=== PATIENT | male | born 1955 | race Caucasian/White ===

== ENCOUNTER → 2018-02-18 11:02 | Outpatient (CLI) | payer BC, SELFPAY ==
--- NOTE | 2018-02-18 11:09 | XR_ITS ---
EXAM: XR cervical spine 5V HISTORY: ITS.REASON: LT NECK PAIN RADIATING DOWN LT ARM ORDERING PHYSICIAN: Eddi Gomez PATIENT AGE: 62 years COMPARISON: 08/13/2009 FINDINGS: There is normal alignment. There are slight reversal of cervical lordosis with minimal anterolisthesis of C3 on C4 of 2 mm. There is partial fusion of C4 and C5 vertebral body. Degenerative disc disease is present at C5 C6 and C6-C7. Moderate facet hypertrophic changes are present at C3-C4 with moderate right-sided foraminal narrowing. Foraminal narrowing also noted on the right at C5-6 is 7 and on the left at C3-C4 and C5-C6.. The facet arthritic changes has progressed at C3-C4. No bony destructive process. No evidence of cervical rib. No fracture or dislocation. IMPRESSION: Multilevel cervical spondylosis as described above with foraminal narrowing on the right at C3-C4 C5-C6 and C6-C7 and on the left at C3-C4 and C5-C6. Partial fusion of C4-C5
== END ==
PROVIDERS: PCP Internal Medicine; Visit Provider Internal Medicine
DX: M54.2 Cervicalgia (principal); M54.12 Radiculopathy, cervical region
CPT/HCPCS: 72050

== ENCOUNTER 2019-01-03 07:49 | Outpatient (RCR) | payer BC, SELFPAY ==
--- NOTE | 2019-01-03 08:42 | HMH.PTOPEV ---
PT Outpatient Evaluation Rehab PT Outpatient Evaluation Start: 01/03/19 08:21 Freq: Status: Active Protocol: Document 01/03/19 08:21 LORI (Rec: 01/03/19 08:32 LORI [id number]) Electronically Signed By Tanner Toure, PT 01/03/19 08:21 Outpatient Therapy Subjective History Subjective History Pt reports h/o chronic LBP with exacerbation over the last ~8 months. Pt reports L>R hip/glut area pain following a 'bending' injury. Pt reports L sided neck pain loacalized, and R UE N&T from SH to hand . Pt reports insidious onset neck and R UE beginning ~2 months ago. Chief Complaint Pain Stiff Paresthesia Weakness Symptom Type Ache Sharp Dull Numbness Tingling Symptoms Relieved By Rest/Positioning Symptoms Aggravated By Bending/Stooping Physical Activity Twisting Lifting Prior Functional Limitations Reaching Lifting Housework Bending/Stooping Current Functional Limitations Reaching Lifting Housework Bending/Stooping Symptom Description Constant but Variable Level of pain today (0-10) 5 Pain scale - at its best (0-10) 2 Pain scale - at its worst (0-10) 7 Cervical Eval Palpation Cervical Muscles L Cervical Paraspinal L Suboccipital R CT Junction L CT Junction R Upper Trapezius L Upper Trapezius Posture Head/C-Spine Posture Sitting Position Side Bent Right Head/C-Spine Posture Standing Position Side Bent Right Flexibility Deficits Upper Trapezius Muscle Length (R) Moderate Tightness (L) Moderate Tightness Scalene Group Muscle Length (R) Mild Tightness (L) Moderate Tightness Passive Joint Mobility Cervical PIVM Dec: R OA L OA R AA L AA
== END 2019-01-03 07:55 | disposition home or self-care (01) ==
LOC: PT 07:49
PROVIDERS: Visit Provider Internal Medicine
DX: M54.2 Cervicalgia (principal); M79.601 Pain in right arm; M54.42 Lumbago with sciatica, left side
CPT/HCPCS: 97163

== ENCOUNTER → 2019-04-02 10:09 | Outpatient (CLI) | payer BC, SELFPAY ==
--- NOTE | 2019-04-02 10:15 | XR_ITS ---
XR KUB HISTORY: ITS.REASON: LT KIDNEY STONE ORDERING PHYSICIAN: Eddi Gomez PATIENT AGE: 63 years COMPARISON: None FINDINGS: The bowel gas pattern is unremarkable. No obvious obstruction.. There are 2 tiny calcific densities in the left aspect of the lower pelvis are the one of which could represent a tiny ureteral stone. IMPRESSION: Possible left distal ureteral stone otherwise negative
== END ==
PROVIDERS: PCP Internal Medicine; Visit Provider Internal Medicine
DX: N20.0 Calculus of kidney (principal)
CPT/HCPCS: 74018

== ENCOUNTER 2020-10-14 15:02 | Emergency (ER) | payer BC, MEDICARE, OTHER, SELFPAY ==
--- NOTE | 2020-10-14 14:50 | ECG_ITS ---
APPROVED REPORT Exam: Resting ECG HR:214 bpm ECG Measurements Heart Rate 214 AXES QRSd 78 QRS 247 QT 226 T 35 QTc 426 Conclusion Supraventricular tachycardia Right superior axis deviation Pulmonary disease pattern Nonspecific ST abnormality Abnormal ECG Electronically signed by : Xander Xie, 10/15/2020 07:09:19
[2020-10-14 15:02] VITALS: BP 118/86; PULSE 218; RESP 20; O2SAT 97; BMI 24.4
--- NOTE | 2020-10-14 15:07 | HMH.EDARPALP ---
ED Disposition Clinical Impression: Supraventricular tachycardia Disposition: Home, Self-Care Condition on Discharge: Good Instructions: DI for Paroxysmal Supraventricular Tachycardia Additional Instructions: Follow-up with your director client services within the next 2 to 3 days for reevaluation. Return to the emergency department for any recurrence of symptoms, chest pain, shortness of breath. - Critical Care Critical Care Time: Yes Attestation: On , the high probability of a clinically significant, sudden or life threatening deterioration of the following system(s) required my full and direct attention, intervention and personal management. The time I documented below is in addition to time spent performing reported procedures but includes the following listed in this critical care notation. Vital system(s) involved:: Circulatory Failure, Respiratory Failure My critical care processes included: Assessment & monitoring of V/S, Initial and Re-exams, Data Review/Interpretation, Coordinating Care, Medication Orders and management, Documentation Medical Decision Making - Medical Records Medical records reviewed: Yes: I reviewed the patient's medical records. - Aayush Inquiry Pt receiving controlled substance: No Vital Signs: 10/14/20 15:02 Pulse Rate [Left Radial] 218 H Respiratory Rate 20 Blood Pressure [Right Arm] 118/86 Blood Pressure Mean [Right Arm] 96 Blood Pressure Source [Right Arm] Automatic Cuff Blood Pressure Position [Right Arm] Sitting 02 Sat by Pulse Oximetry 97 Oxygen Delivery Method Room Air Orders (Tests/Meds): ED MEDICATIONS Discontinued Medications Generic Name Dose Route Start Last Admin Trade Name Freq PRN Reason Stop Dose Admin Adenosine 6 mg 10/14/20 15:09 10/14/20 15:10 Adenosine 6mg/2ml Vial IV 10/14/20 15:10 6 mg ONCE ONE Administration Adenosine 12 mg 10/14/20 15:09 10/14/20 15:20 Adenosine 6mg/2ml Vial IV 10/14/20 15:10 12 mg ONCE ONE Administration - ECG Data Tracing #1 EKG at 1450 shows supraventricular tachycardia with a rate of 214. No STEMI. Normal QRS and QTc. EKG interpreted by me. Tracing #2 EKG at 1521 shows a normal sinus rhythm with a rate of 89. No acute ST segment elevation or depression. Normal WA, QRS and QTc. EKG interpreted by me. Medical Decision Narrative: Tried vagal maneuvers here with no relief of SVT. Attempted initially 6 mg of adenosine with no resolution. 12 mg of adenosine was attempted next with resolution of SVT. Patient feeling much better and is completely asymptomatic on reevaluation at approximately 1 hour post presentation and is discharged home to follow-up outpatient with cardiology for reevaluation within the next 2 to 3 days. Arrhythmia/Palpitations HPI - General Stated Complaint: svt Time Seen by Provider: 10/14/20 15:07 Mode of Arrival: Ambulatory Source of Information: Patient Limitations: No Limitations - History of Present Illness HPI narrative: This is a 65-year-old male with a past medical history significant for SVT who presents to the emergency department for tachycardia that started about 2 hours ago. Patient states that he just had cataract surgery yesterday and about 2 hours ago started having SVT type symptoms with sensation of tachycardia and chest tightness. This felt like a previous episode he had 2 years ago. He has not had any N/V/D. No other known exacerbating or alleviating factors. No SOA. He has resolved in the past with medication. He tried vagal maneuvers at home with no relief of symptoms. - Related Data Home Medications Medication Instructions Recorded Confirmed Metoprolol Tartrate [Lopressor 25 mg PO BID 12/12/19 12/29/19 25mg tablet] doxycycline hyclate 100 mg capsule 100 mg PO BID cap 12/29/19 12/29/19 Previous Rx's Medication Instructions Recorded Acetaminophen 1,000 mg PO TID PRN #60 tab 01/25/20 Hydrocod/Acet 5/325 mg [[place] 1 tab
--- NOTE | 2020-10-14 15:21 | ECG_ITS ---
APPROVED REPORT Exam: Resting ECG HR:89 bpm ECG Measurements Heart Rate 89 AXES WI 170 P 64 QRSd 84 QRS -52 QT 364 T 46 QTc 442 Conclusion Normal sinus rhythm Left axis deviation RSR' or QR pattern in V1 suggests right ventricular conduction delay Abnormal ECG Electronically signed by : Xander Xie, 10/15/2020 07:09:12
[2020-10-14 15:32] VITALS: BP 128/86; PULSE 87; RESP 18; O2SAT 96
[2020-10-14 16:08] VITALS: BP 133/84; PULSE 88; RESP 20; TEMP 36.8; O2SAT 96
== END 2020-10-14 16:10 | disposition home or self-care (01) ==
PROVIDERS: Emergency Provider Emergency Medicine; PCP Internal Medicine
DX: I47.1 Supraventricular tachycardia (principal); I48.0 Paroxysmal atrial fibrillation; I10 Essential (primary) hypertension; Z88.5 Allergy status to narcotic agent
CPT/HCPCS: 92960; 93005; 96374; 99282

== ENCOUNTER → 2020-10-27 09:27 | Outpatient (CLI) | payer BC, MEDICARE, OTHER, SELFPAY ==
--- NOTE | 2020-10-27 09:33 | XR_ITS ---
PROCEDURE: XR CHEST 2V CLINICAL HISTORY: RT POSTERIOR CHEST PAIN COMPARISON: No exams were available for comparison FINDINGS: The cardiomediastinal silhouette and pulmonary vascularity are within normal limits. The lungs are clear without infiltrates, suspicious nodules, or pleural effusions. There are calcified hilar nodes bilaterally are couple of calcified granulomata right lower lung field. There is no pleural fluid. There is a faint nodular opacity left lateral chest measuring 1.4 cm in diameter likely representing a developing or evolving calcified granuloma. However a noncalcified pulmonary nodule cannot be excluded based on this film and suggest a follow-up CT scan chest for better evaluation. No acute bony abnormalities. IMPRESSION: Evidence of old granulomatous disease, possible noncalcified pulmonary nodule left lateral chest and consider follow-up CT scan of the chest Dictated by: Dr. Zaheer Hayes MD 10/27/2020 09:48 Dr. Zaheer Hayes MD in [place] 10/27/2020 09:48
== END ==
PROVIDERS: PCP Internal Medicine; Visit Provider Internal Medicine
DX: R07.89 Other chest pain (principal)
CPT/HCPCS: 71046

== ENCOUNTER → 2020-11-05 07:37 | Outpatient (CLI) | payer BC, MEDICARE, OTHER, SELFPAY ==
--- NOTE | 2020-11-05 07:42 | CT_ITS ---
PROCEDURE: CT CHEST WO CON CLINICAL INDICATION: LT LUNG NODULE COMPARISON: CR [id number] XR cervical spine 5V from 02/18/[address] abdomen pelvis wo con from 03/20/2019 CR XR CHEST 2V from 10/27/2020 TECHNIQUE: Axial images obtained with sagittal and coronal reformats. All CT scans at the facility use one or more dose reduction, viz: automated exposure control, ma/kV adjustment per patient size (including targeted exams where dose is matched to indication, i.e. head), or iterative reconstruction technique. FINDINGS: HEART AND MEDIASTINAL STRUCTURES: Unremarkable. LUNGS AND PLEURAL SPACES: Mild centrilobular emphysema. There is a lobulated 13 x 12 mm nodule in the left upper lobe laterally. This is noncalcified and well-circumscribed. Calcified granulomas are present in the superior segment of the right lower lobe. 3 mm opacity is present in the right major fissure inferiorly. BONY STRUCTURES: No acute bony abnormalities apparent. UPPER ABDOMEN: Fatty liver. Cholelithiasis. Small nodes are present in the mesenteries with some faint increased density in the upper mesenteric fat. ADDITIONAL FINDINGS: No other significant abnormalities. IMPRESSION: 1. 13 x 12 mm noncalcified nodule within the left upper lobe. This nodule is indeterminate. This may have been present on an older CT scan of 03/20/2019 medical art therapist view but incompletely evaluated. Suggest PET-CT for further evaluation. 2. Centrilobular emphysema. 3. Fatty liver with cholelithiasis with nonspecific increased density in the upper mesenteric fat with a few small mesenteric lymph nodes Dictated by: Calvin Reyes MD 11/06/2020 06:30 Calvin Reyes MD in [place] 11/06/2020 06:30
--- NOTE | 2020-11-05 07:43 | US_ITS ---
PROCEDURE: US ABDOMEN COMPLETE CLINICAL INDICATION: RT FLANK PAIN COMPARISON: CT CT CHEST WO CON from 11/05/2020 FINDINGS: PANCREAS: Unremarkable. No obvious mass or abnormal fluid collection. No ductal dilatation LIVER: Diffuse increased echogenicity of the liver with poor through transmission of sound consistent with hepatic steatosis. No focal liver lesion demonstrated. There is appropriate direction of blood flow within non dilated portal vein. RIGHT KIDNEY: Unremarkable. Normal size and echogenicity. No hydronephrosis LEFT KIDNEY: Unremarkable. Normal size and echogenicity. No hydronephrosis GALLBLADDER: Cholelithiasis. No gallbladder wall thickening, pericholecystic fluid, or biliary dilatation is evident. AORTA: Incompletely evaluated due to overlying bowel gas SPLEEN: Unremarkable. Normal size and echogenicity ASCITES: None demonstrated. IMPRESSION: Fatty liver with cholelithiasis Dictated by: Calvin Reyes MD 11/06/2020 06:33 Calvin Reyes MD in [place] 11/06/2020 06:33
== END ==
PROVIDERS: PCP Internal Medicine; Visit Provider Internal Medicine
DX: R91.1 Solitary pulmonary nodule (principal); R10.9 Unspecified abdominal pain
CPT/HCPCS: 71250; 76700

== ENCOUNTER → 2021-01-12 10:03 | Outpatient (CLI) | payer BC, MEDICARE, OTHER, SELFPAY ==
[2021-01-12 11:06] LABS: Blood Urea Nitrogen 13 mg/dl (9-20); Estimated Glomerular Filt Rate 85 ml/min (>60); GFR (African American) 102 ML/MIN (>60)
== END ==
PROVIDERS: Visit Provider Internal Medicine Pulmonary Disease
DX: R91.1 Solitary pulmonary nodule (principal); Z87.891 Personal history of nicotine dependence
CPT/HCPCS: 36415; 82565; 84520

== ENCOUNTER → 2021-01-13 10:15 | Outpatient (CLI) | payer BC, MEDICARE, OTHER, SELFPAY ==
--- NOTE | 2021-01-13 10:16 | CT_ITS ---
PROCEDURE: CT ABDOMEN WO/W CON CLINICAL HISTORY: Pancreatic FGD uptake abnormal pancrease findings on PET CT nausea COMPARISON: CT ABDPELWO CT abdomen pelvis wo con from 03/20/[address] ABDOMEN PELVIS WO CON from 01/25/2020 TECHNIQUE: Axial images obtained with sagittal and coronal reformats. All CT scans at the facility use one or more dose reduction, viz: automated exposure control, ma/kV adjustment per patient size (including targeted exams where dose is matched to indication, i.e. head), or iterative reconstruction technique. FINDINGS: CT of the abdomen is performed without and dynamic imaging with attention to the pancreas. Fibrotic changes are present in the right middle lobe. There is diffuse fatty attenuation of the liver.. No focal liver lesions are demonstrated. Gallstones are noted. Small hiatal hernia. The spleen and adrenal glands are unremarkable. Small right renal cyst at 13 mm in the upper pole. No renal calculi. No hydronephrosis or renal mass. There are few small lymph nodes in the epigastric region and periportal area. These have not significantly changed compared to 03/20/2019. No pancreatic mass apparent. No pancreatic ductal dilatation or peripancreatic fluid collections. There is a tiny calcification in the uncinate process of the pancreatic head. There is fullness of the pancreatic head however, this is not significantly changed. There is mild haziness of the mesenteric fat along the superior mesenteric axis. Scattered small nodes are present in the mesenteries. IMPRESSION: 1. No evidence of pancreatic mass. Tiny calcification in the uncinate process could reflect prior pancreatitis. There is fullness of the pancreatic head but is not significantly changed. Consider six-month follow-up to confirm stability. 2. Cholelithiasis with fatty liver. 3. Mild haziness of the mesenteric fat with small mesenteric lymph nodes nonspecific but could indicate mesenteric adenitis however this is not significantly changed. 4. Small hiatal hernia Dictated by: Calvin Reyes MD 01/15/2021 10:27 Calvin Reyes MD in [place] 01/15/2021 10:29
== END ==
PROVIDERS: PCP Internal Medicine; Visit Provider Internal Medicine Pulmonary Disease
DX: R94.8 Abnormal results of function studies of other organs and systems (principal)
CPT/HCPCS: 74170; Q9967

== ENCOUNTER → 2021-01-21 14:03 | Outpatient (CLI) | payer BC, MEDICARE, OTHER, SELFPAY ==
[2021-01-21 16:17] LABS: Alanine Aminotransferase 65 U/L (12-78); Albumin Level 4.3 g/dl (3.5-5.0); Alkaline Phosphatase 92 U/L (38-126); Amylase 54 U/L (30-110); Aspartate Amino Transferase 42 U/L (17-59); Bilirubin,Direct 0.1 mg/dl (0.0-0.4); Bilirubin,Indirect 0.5 mg/dL (0.0-0.9); Bilirubin,Total 0.6 mg/dl (0.2-1.3); Bilirubin,Unconjugated 0.5 mg/dL (0.0-1.1); Lipase 228 U/L (23-300); Total Protein,Serum 7.3 g/dl (6.3-8.2)
[2021-01-23 13:12] LABS: CA 19-9 13 U/mL (0-35)
== END ==
PROVIDERS: Visit Provider Internal Medicine Gastroenterology
DX: R93.3 Abnormal findings on diagnostic imaging of other parts of digestive tract (principal)
CPT/HCPCS: 36415; 80076; 82150; 83690; 86316

== ENCOUNTER → 2021-03-19 08:55 | Outpatient (CLI) | payer BC, MEDICARE, OTHER, SELFPAY | PROVIDERS: Visit Provider Internal Medicine Gastroenterology | DX: Z01.812 Encounter for preprocedural laboratory examination (principal); Z11.52 Encounter for screening for COVID-19; R10.11 Right upper quadrant pain | CPT/HCPCS: U0003 ==

== ENCOUNTER 2021-03-21 13:27 | Day surgery (SDC) | payer BC, MEDICARE, OTHER, SELFPAY ==
[2021-03-16 11:28] VITALS: BMI 30.5
[2021-03-21] VITALS (7 sets, daily range): BP systolic 136–156; BP diastolic 84–93; PULSE 80–117; RESP 18; TEMP 36.6–36.7; O2SAT 94–98
--- NOTE | 2021-03-21 15:00 | FL_ITS ---
PROCEDURE: FL ERCP CLINICAL INDICATION: right upper quadrant pain The COMPARISON: CT CT ABDOMEN WO/W CON from 01/13/2021 FINDINGS: Fluoroscopy time: 1 minutes and 41 seconds. Single image submitted demonstrates the endoscope in place with cannulation of the pancreatic duct which is mildly dilated proximally. Distal duct is not opacified on the single image submitted. No obvious stricture. IMPRESSION: Mildly dilated pancreatic duct in the head of the pancreas. Dictated by: Calvin Reyes MD 03/22/2021 08:01 Calvin Reyes MD in [place] 03/22/2021 08:01
--- NOTE | 2021-03-21 15:50 | HMH.PROC ---
[facility] Procedure Note Procedure Note:: ERCP procedure Report: Endoscopic retrograde pancreatography Endoscopist: Pedro Mcdonough II, MD Referring Physician: Eddi Gomez MD Date of Procedure: March 21, 2021 Equipment: Olympus 180 side viewing endoscope duodenoscope Sedation: MAC sedation Indication: Mr. Powell is a 65-year-old gentleman with right flank pain that has been more excruciating. He had a CAT scan of the abdomen showing gallstones towards the neck of the gallbladder with a generous gallbladder size but no wall thickening or pericholecystic fluid. There was no biliary ductal dilation. There was some haziness around the root of the mesentery. A subsequent PET scan did show some hypermetabolic activity around the head of the pancreas without any discrete lesion. His ultrasound of the right upper quadrant showed gallstones but no cholecystitis. The patient did have normal CA 19-9 13, amylase 54, lipase 228 and ALT 65. His alkaline phosphatase 92 and total bilirubin 0.6 were normal. There was evidence of fatty liver with cholelithiasis. His abdominal pain has resolved. A subsequent pancreatic protocol CT scan did not show any pancreatic mass but there was a tiny calcification in the uncinate process. Procedure: Prior to the procedure, a history and physical exam was performed, and patient's medications and allergies were reviewed. The risks, benefits and alternatives of the sedation and procedure were discussed with the patient. All questions were answered and informed consent was obtained. The patient was brought to the fluoroscopic radiology room. Patient identification and proposed procedure were verified by the physician and the nurse. The patient was placed in a swimmer's position between left lateral decubitus and prone position and the scope was passed under direct vision. Throughout the procedure, the patient's blood pressure, pulse, and oxygen saturations were monitored continuously. The ERCP was accomplished without difficulty. The patient tolerated the procedure well. Findings: The side-viewing duodenoscope was passed directly into the upper esophagus and advanced to the second portion of the duodenum. The esophagus, stomach and duodenum were normal. The pancreatic duct was selectively cannulated. The pancreatogram did show a mildly dilated pancreatic duct in the head and neck of the pancreas and the main pancreatic duct. There was filling of the uncinate duct. The remainder of the pancreatic duct in the body and tail the pancreas were normal in appearance without ductular ectasias or stricturing. The bile duct was not cannulated. Impression: 1. Mildly dilated pancreatic duct in head/neck (normal variant with larger ventral pancreas) otherwise normal pancreatic ductal system Plan: I will discuss the findings with the patient and family. The patient does not have any evidence of a pancreatic mass or chronic pancreatitis. I do feel that this dilated pancreatic duct in the head of the gland is a normal variant. There was no stricturing. If the patient has any further bouts of right-sided abdominal pain, I would consider symptomatic gallstones a possible cause.
--- NOTE | 2021-03-21 16:49 | HMH.ANESCL ---
[facility] Anesthesia Checklist - Patient Identification Patient Identification: Arm Band - Structural Data Admitted From: Home Planned Operative Procedure/s: ERCP Consent for Planned Operative Procedure(s) Verified: Yes - NPO Status Verified Time NPO: 00:00 - Additional verifications Anesthesia Reactions: No - Airway Assessment C-Spine Mobility Assessed: Yes TMJ Mobility Assessed: Yes Dentition: Dentures-good fit - Neurological Assessment Level of Consciousness: Awake Hx Seizures: No Numbness or tingling in extremities: No - Anesthesia Plan Anesthesia Risk discussed: Yes Anesthesia Plan: Verified ASA Class: II Anesthesia Type: MAC [facility] History I have reviewed the patient's past medical history: Yes Medical History: Reports:: Arrhythmia, Atrial Fibrillation Denies:: Cancer, Diabetes Mellitus Type 1, Diabetes Mellitus Type 2, Internal Pacemaker, MRSA, Seizures *Have you ever received a pneumonia vaccine?: No *Have you received a flu vaccine this season?: No Anesthesia experience/problems:: None Other Surgeries: Yes: Colonoscopy. No: Pacemaker Amputation: No Fractures: Yes (3x ribs) - *Social History Smoking Status: Never smoker Alcohol Intake: never Substance Use Type: denies use *Occupational Status:: employed Housing: house Household Members: spouse *Travel in the last 8 weeks: None Family Hx:: Cancer
== END 2021-03-21 17:25 | disposition home or self-care (01) ==
LOC: OUTP 13:29
PROVIDERS: PCP Internal Medicine; Visit Provider Internal Medicine Gastroenterology
PROC: (CPT 43260; principal; 2021-03-21 14:30)
DX: K86.89 Other specified diseases of pancreas (principal); I49.9 Cardiac arrhythmia, unspecified; I48.91 Unspecified atrial fibrillation; Z80.9 Family history of malignant neoplasm, unspecified; Z88.6 Allergy status to analgesic agent
CPT/HCPCS: 43260; 74330; Q9967

== ENCOUNTER → 2021-03-24 12:34 | Outpatient (CLI) | payer BC, MEDICARE, OTHER, SELFPAY | PROVIDERS: PCP Internal Medicine; Visit Provider Internal Medicine Pulmonary Disease | DX: R06.00 Dyspnea, unspecified (principal) | CPT/HCPCS: 94060; 94726; 94729 ==

== ENCOUNTER → 2021-04-06 15:13 | Outpatient (CLI) | payer BC, MEDICARE, OTHER, SELFPAY ==
--- NOTE | 2021-04-06 15:13 | CT_ITS ---
PROCEDURE: CT CHEST WO CON A CLINICAL INDICATION: Nodule followup No symptoms Prior on pacs COMPARISON: CT CT CHEST WO CON from 11/05/2020 TECHNIQUE: Axial images obtained with sagittal and coronal reformats. All CT scans at the facility use one or more dose reduction, viz: automated exposure control, ma/kV adjustment per patient size (including targeted exams where dose is matched to indication, i.e. head), or iterative reconstruction technique. FINDINGS: HEART AND MEDIASTINAL STRUCTURES: Minimal coronary artery calcification noted. LUNGS AND PLEURAL SPACES: COPD changes. There has been no significant change in the 13 by 12 mm noncalcified nodule in the left upper lobe posteriorly. Nodule is well-circumscribed with macrolobular margins. No effusions or infiltrates. BONY STRUCTURES: No acute bony abnormalities apparent. UPPER ABDOMEN: Fatty liver. Cholelithiasis. Small epigastric nodes ADDITIONAL FINDINGS: No other significant abnormalities. IMPRESSION: Stable CT appearance of the chest. Overall no significant change in the noncalcified 13 mm nodule in the left upper lobe. Continued follow-up suggested. Fatty liver. Cholelithiasis. Dictated by: Calvin Reyes MD 04/07/2021 07:51 Calvin Reyes MD in [place] 04/07/2021 07:51
== END ==
PROVIDERS: PCP Internal Medicine; Visit Provider Internal Medicine Pulmonary Disease
DX: R91.8 Other nonspecific abnormal finding of lung field (principal)
CPT/HCPCS: 71250

== ENCOUNTER → 2021-04-12 15:26 | Outpatient (CLI) | payer BC, MEDICARE, OTHER, SELFPAY ==
--- NOTE | 2021-04-12 | ECG_ITS ---
APPROVED REPORT Exam: Resting ECG HR:80 bpm ECG Measurements Heart Rate 80 AXES WV 168 P 51 QRSd 86 QRS -77 QT 364 T 17 QTc 419 Conclusion Normal sinus rhythm Left axis deviation Abnormal ECG Electronically signed by : Xander Xie, 04/13/2021 17:49:40
[2021-04-12 16:05] LABS: Basophils # 0.1 K/mm3 (0-0.2); Basophils % 1.2 % (0.1-2.0); Eosinophils # 0.3 K/mm3 (0.0-0.4); Eosinophils % 3.7 % (0.1-12.0); Hematocrit 44.6 % (42.0-52.0); Hemoglobin 16.1 g/dL (14.1-18.0); Lymphocytes # 2.2 K/mm3 (0.7-4.5); Lymphocytes % 26.9 % (10-50); Mean Corpuscular HGB Conc 36.2 g/dL (31.8-35.4); Mean Corpuscular Hemoglobin 30.3 pg (27.0-31.2); Mean Corpuscular Volume 83.7 fl (80-94); Monocytes # 0.7 K/mm3 (0.1-1.0); Monocytes % 8.2 % (1.7-9.3); Neutrophils # 4.8 K/mm3 (1.8-7.8); Platelet Count 234 K/mm3 (142-424); Red Blood Count 5.32 M/mm3 (4.60-6.20); Red Cell Distribution Width 13.5 % (11.5-17.5)
== END ==
PROVIDERS: Visit Provider Otolaryngology
DX: Z01.818 Encounter for other preprocedural examination (principal); U07.1 COVID-19
CPT/HCPCS: 36415; 85025; 93005; U0003

== ENCOUNTER 2021-05-05 06:01 | Day surgery (SDC) | payer BC, MEDICARE, OTHER, SELFPAY ==
[2021-04-11 11:09] VITALS: BMI 31.7
[2021-05-05 06:16] VITALS: BP 131/72; PULSE 59; RESP 18; TEMP 36.5; O2SAT 97
--- NOTE | 2021-05-05 06:58 | P.PN_ITS ---
[facility] Anesthesia Checklist - Patient Identification Patient Identification: Arm Band - Structural Data Admitted From: Home Planned Operative Procedure/s: Lesion excision R nasal Consent for Planned Operative Procedure(s) Verified: Yes - NPO Status Verified Time NPO: 00:00 - Additional verifications Anesthesia Reactions: No - Airway Assessment C-Spine Mobility Assessed: Yes TMJ Mobility Assessed: Yes Dentition: Poor Dentition (Missing. Dentures removed) - Neurological Assessment Level of Consciousness: Awake Hx Seizures: No Numbness or tingling in extremities: No - Anesthesia Plan Anesthesia Risk discussed: Yes Anesthesia Plan: Verified ASA Class: II Anesthesia Type: Local & MAC [facility] History I have reviewed the patient's past medical history: Yes Medical History: Reports:: Arrhythmia, Atrial Fibrillation, Chronic Obstructive Pulmonary Disease (COPD), Supraventricular Tachycardia Denies:: Cancer, Diabetes Mellitus Type 1, Diabetes Mellitus Type 2, Internal Pacemaker, MRSA, Seizures *Have you ever received a pneumonia vaccine?: No *Have you received a flu vaccine this season?: No Anesthesia experience/problems:: None Other Surgeries: Yes: Colonoscopy. No: Pacemaker Amputation: No Fractures: Yes (3x ribs) - *Social History Smoking Status: Never smoker Alcohol Intake: never Substance Use Type: denies use *Occupational Status:: employed Housing: house Household Members: spouse *Travel in the last 8 weeks: None Family Hx:: Cancer
[2021-05-05 08:16] VITALS: BP 102/63; PULSE 67; RESP 16; TEMP 36.4; O2SAT 91
--- NOTE | 2021-05-05 08:24 | P.OP_ITS ---
Date of procedure: 05/05/21 Pre-op Diagnosis:: 1. 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 The perilesional area was infiltrated with a total of 3 cc of 2% lidocaine with epi. The lesion was marked out on the alan up measured 2.8 cm. The alan out was incised and the lesion was excised. Deeply into the subcutaneous layer. The lesion was submitted and bleeding was stopped with bipolar cautery, blood loss was 5 cc. Inferior and superior incisions were made Surgicel snow was placed in the defect and a tissue rearrangement Z-plasty repair was done with interrupted 4-0 nylon sutures. A Dermabond dressing was applied as well as a dot dressing and the patient was sent to recovery in good general condition. Condition: stable Disposition: PACU Complications:: none
[2021-05-05 08:26] VITALS: BP 107/69; PULSE 62; RESP 16; TEMP 36.4; O2SAT 94
[2021-05-05 08:36] VITALS: BP 115/72; PULSE 66; RESP 16; TEMP 36.4; O2SAT 98
[2021-05-05 08:46] VITALS: BP 116/68; PULSE 65; RESP 16; TEMP 36.6; O2SAT 98
== END 2021-05-05 08:50 | disposition home or self-care (01) ==
LOC: OR 06:02
PROVIDERS: PCP Internal Medicine; Visit Provider Otolaryngology
PROC: (CPT 14060; principal; 2021-05-05 07:30)
DX: C44.311 Basal cell carcinoma of skin of nose (principal)
CPT/HCPCS: 14060; 96374; 96375

== ENCOUNTER → 2021-08-30 16:41 | Outpatient (CLI) | payer BC, MEDICARE, OTHER, SELFPAY ==
[2021-08-30 20:13] LABS: Alanine Aminotransferase 38 U/L (12-78); Albumin Level 4.3 g/dl (3.5-5.0); Albumin/Globulin Ratio 1.2 (1.1-1.8); Alkaline Phosphatase 92 U/L (38-126); Anion Gap 16.2 mEq/L (5-15); Aspartate Amino Transferase 37 U/L (17-59); Bilirubin,Total 0.8 mg/dl (0.2-1.3); Blood Urea Nitrogen 10 mg/dl (9-20); Calcium 9.4 mg/dl (8.4-10.2); Carbon Dioxide 27 mmol/L (22.0-30.0); Chloride 102 mmol/L (98-107); Estimated Glomerular Filt Rate 97 ml/min (>60); GFR (African American) 117 ML/MIN (>60); Globulin 3.5 g/dL (1.3-3.2); Glucose 85 mg/dl (74-100); Potassium 4.2 mmoL/L (3.5-5.1); Sodium 141 mmol/L (136-145); Total Protein,Serum 7.8 g/dl (6.3-8.2)
== END ==
PROVIDERS: Visit Provider Otolaryngology
DX: R59.0 Localized enlarged lymph nodes (principal)
CPT/HCPCS: 36415; 80053

== ENCOUNTER → 2021-09-07 13:25 | Outpatient (CLI) | payer BC, MEDICARE, OTHER, SELFPAY | PROVIDERS: PCP Internal Medicine; Visit Provider Otolaryngology | DX: R59.0 Localized enlarged lymph nodes (principal) ==

== ENCOUNTER → 2021-09-19 12:31 | Outpatient (CLI) | payer BC, MEDICARE, OTHER, SELFPAY ==
--- NOTE | 2021-09-19 12:51 | CT_ITS ---
PROCEDURE: CT SOFT TISSUE NECK WO/W CON CLINICAL HISTORY: lymphadenopathy COMPARISON: No exams were available for comparison TECHNIQUE: Oral Contrast: 75 mL Isovue 370 IV Contrast: None Axial images obtained with sagittal and coronal reformats. All CT scans at the facility use one or more dose reduction, viz: automated exposure control, ma/kV adjustment per patient size (including targeted exams where dose is matched to indication, i.e. head), or iterative reconstruction technique. FINDINGS: Nasopharynx has an unremarkable appearance. There is slight asymmetry at the base of the tongue the right-side slightly more prominent than the left side. Direct visualization suggested. No enhancing lesions evident at this area. The hypopharynx and epiglottis have an unremarkable appearance. The glottic region has an unremarkable appearance. There is incomplete distension of the left piriform sinus compared to the right however this is less apparent on the unenhanced images. There are few small cervical nodes but no dominant adenopathy. The the salivary glands have an unremarkable appearance. No abnormal fluid collections. Unremarkable thyroid. There is some mild centrilobular emphysematous changes in the lung apices. No adenopathy in the superior mediastinum. No acute bony findings. 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 No dominant adenopathy apparent. 2. Slight asymmetry in the right base of the tongue for which correlation with direct visualization is suggested. No abnormal enhancement at this area. 3. Incomplete distension of the left piriform sinus of questionable clinical significance. 4. Cervical spondylosis Dictated by: Calvin Reyes MD 09/21/2021 08:02 Calvin Reyes MD in [place] 09/21/2021 08:02
--- NOTE | 2021-09-19 12:51 | CT_ITS ---
PROCEDURE: CT HEAD/BRAIN WO/W CON CLINICAL INDICATION: cervical neck area swelling COMPARISON: No exams were available for comparison TECHNIQUE: IV Contrast: 100ML Isovue 370 Axial images obtained. All CT scans at the facility use one or more dose reduction, viz: automated exposure control, ma/kV adjustment per patient size (including targeted exams where dose is matched to indication, i.e. head), or iterative reconstruction technique. FINDINGS: No midline shift, mass effect, intracranial hemorrhage, hydrocephalus, or extra-axial fluid collection is evident. No enhancing lesions. The calvarium has an unremarkable appearance. No mastoid effusion. Mild mucosal thickening in the right ethmoid sinus. IMPRESSION: No acute intracranial findings Dictated by: Calvin Reyes MD 09/20/2021 18:30 Calvin Reyes MD in [facility] 09/20/2021 18:30
[2021-09-19 13:08] LABS: Blood Urea Nitrogen 11 mg/dl (9-20); Estimated Glomerular Filt Rate 84 ml/min (>60); GFR (African American) 102 ML/MIN (>60)
== END ==
PROVIDERS: PCP Internal Medicine; Visit Provider Otolaryngology
DX: R59.0 Localized enlarged lymph nodes (principal)
CPT/HCPCS: 36415; 70470; 70492; 82565; 84520; Q9967

== ENCOUNTER → 2021-12-27 12:49 | Outpatient (CLI) | payer MEDICARE, OTHER, SELFPAY ==
--- NOTE | 2021-12-27 12:49 | CT_ITS ---
FINAL REPORT TECHNIQUE: Axial CT images were performed from the lung apices through the upper abdomen. Coronal reformats were submitted. This study was performed with techniques to keep radiation doses as low as reasonably achievable (ALARA). Individualized dose reduction techniques using automated exposure control or adjustment of mA and/or kV according to the patient's size were employed. CLINICAL HISTORY: 9-month follow-up COMPARISON: 04/06/2021 FINDINGS: There is no axillary adenopathy. There is no hilar or mediastinal mass or adenopathy. Heart size is normal. There is no pericardial or pleural effusion. There is mild emphysema. There is a lobular nodule in the lateral left upper lobe which is stable at 13 mm. There several calcified granulomas in the right lower lobe. Limited images of the upper abdomen demonstrate fatty infiltration of the liver. Several gallstones are seen. IMPRESSION: Stable left lung nodule favored to be benign. Follow-up CT chest is recommended in 12 months. Reviewed, Interpreted and Dictated by Sriram Schaffer III, MD Transcribed by Mara Nolasco Authenticated by Sriram Schaffer III, MD on 12/27/2021 01:56:28 PM [facility]
== END ==
PROVIDERS: PCP Internal Medicine; Visit Provider Internal Medicine Pulmonary Disease
DX: R91.8 Other nonspecific abnormal finding of lung field (principal)
CPT/HCPCS: 71250

== ENCOUNTER → 2022-07-11 09:41 | Outpatient (CLI) | payer MEDICARE, OTHER, SELFPAY ==
--- NOTE | 2022-07-11 09:49 | XR_ITS ---
FINAL REPORT CLINICAL HISTORY: NECK PAIN, no injury COMPARISON: 02/18/2018 FINDINGS: CERVICAL SPINE 5 views were obtained. There is no acute fracture. There is partial congenital fusion of the C4 and C5 vertebral bodies. There are moderate degenerative changes with osteophytes in the lower cervical spine. There is mild retrolisthesis of C5 on C6. On the oblique views ,there is moderate right and mild left neural foraminal narrowing at C5-6. There is bilateral neural foraminal narrowing at C6-7. IMPRESSION: Degenerative change with no acute bony abnormality. Reviewed, Interpreted and Dictated by Sriram Schaffer III, MD Transcribed by Mara Nolasco Authenticated and . [facility]
== END ==
PROVIDERS: PCP Internal Medicine; Visit Provider Internal Medicine
DX: M54.2 Cervicalgia (principal)
CPT/HCPCS: 72050

== ENCOUNTER → 2022-08-16 10:17 | Outpatient (CLI) | payer MEDICARE, OTHER, SELFPAY ==
--- NOTE | 2022-08-16 10:22 | XR_ITS ---
PROCEDURE INFORMATION: Exam: XR Right Tibia and Fibula Exam date and time: 08/16/2022 10:39 AM Age: 67 years old Clinical indication: Injury or trauma; Fall; Blunt trauma; Knee; Right; Additional info: R leg injury, pain swelling TECHNIQUE: Imaging protocol: Radiologic exam of the Right tibia and fibula. Views: 2 views. COMPARISON: No relevant prior studies available. FINDINGS: Bones/joints: Mild narrowing medial knee compartment. Soft tissues: Normal. IMPRESSION: No evidence of acute osseous injury.
== END ==
PROVIDERS: PCP Internal Medicine; Visit Provider Internal Medicine
DX: M79.661 Pain in right lower leg (principal); S81.801A Unspecified open wound, right lower leg, initial encounter; B95.7 Other staphylococcus as the cause of diseases classified elsewhere
CPT/HCPCS: 73590; 87070; 87077; 87186; 87205

== ENCOUNTER → 2022-09-07 07:54 | Outpatient (CLI) | payer MEDICARE, OTHER, SELFPAY ==
--- NOTE | 2022-09-07 07:58 | US_ITS ---
FINAL REPORT CLINICAL HISTORY: Right upper quadrant pain FINDINGS: ULTRASOUND RIGHT UPPER QUADRANT Sonographic imaging of the right upper quadrant was obtained. The pancreas is partially obscured. The liver demonstrates areas of focal fatty infiltration. There are gallstones in the gallbladder. There is no gallbladder wall thickening. There is no biliary ductal dilatation. The common duct is normal at 3 mm. The right kidney measures 10.7 cm in length. There is a benign appearing cyst in the right kidney. IMPRESSION: Cholelithiasis. Areas of focal fatty infiltration in the liver. Right renal cyst. Reviewed, Interpreted and Dictated by Glenroy Pereyra MD Transcribed by Mara Nolasco Authenticated and . [facility]
== END ==
PROVIDERS: PCP Internal Medicine; Visit Provider Internal Medicine
DX: R10.11 Right upper quadrant pain (principal)
CPT/HCPCS: 76705

== ENCOUNTER 2022-11-23 09:23 | Day surgery (SDC) | payer MEDICARE, OTHER, SELFPAY ==
[2022-11-23] VITALS (7 sets, daily range): BP systolic 94–153; BP diastolic 54–86; PULSE 85–96; RESP 16–19; TEMP 36.4–36.8; O2SAT 92–99; BMI 28.7
--- NOTE | 2022-11-23 09:45 | EXP.ANES.CKL ---
[facility] Disclaimer: The information contained in this section may have been updated after the patient was seen, as this information can be updated by other users. Medical History Hx of acute arthritis Hx of gastroesophageal reflux (GERD) Surgical History No significant past surgical history Family History Other No significant family history Social History Smoking Status: Never smoker alcohol intake: never substance use type: denies use current occupational status: employed Travel in the last 8 weeks: None household members: spouse housing: house lives independently: Yes marital status: education level: high school current occupation: [employer] current occupational exposures/hazards: Yes caffeine: Yes do you feel safe at home: Yes victim of physical abuse: No victim of emotional abuse: No victim of sexual abuse: No would you like helpful sources: No [facility] Anesthesia Checklist Patient Identification Patient Identification: Arm Band and Verbal (Name & ) Structural Data Admitted From: Home Planned Operative Procedure/s: Colonoscopy Consent for Planned Operative Procedure(s) Verified: Yes NPO Status Verified Time NPO: 00:00 Additional verifications Anesthesia Reactions: No Airway Assessment C-Spine Mobility Assessed: Yes TMJ Mobility Assessed: Yes Dentition: Poor Dentition Neurological Assessment Level of Consciousness: Awake Hx Seizures: No Numbness or tingling in extremities: No Anesthesia Plan Anesthesia Risk discussed: Yes Anesthesia Plan: Verified ASA Class: II Anesthesia Type: MAC
--- NOTE | 2022-11-23 10:04 | HMH.SCOPE ---
Procedure: Date: 11/23/22 Patient Date of :: 1955 Procedure Performed:: Screening colonoscopy Indications:: History of polyps Performing Provider:: Patrice Mullins MD Referring Provider:: Eddi Gomez Sedation:: Propofol Procedure:: After placing the patient in the left lateral decubitus position, the colonoscopy was gently inserted into the rectum and under direct visualization advanced to the cecum which was identified by transillumination in the right lower quadrant, identification of the ileocecal valve, appendiceal orifice, and cecal strap. Color, texture, mucosa, and anatomy of the colon were carefully examined with the scope. Findings:: Anal canal: normal Rectum: normal Sigmoid colon: normal without polyps or inflammatory changes Descending colon: normal without polyps or inflammatory changes Splenic flexure: normal Transverse colon: normal without polyps or inflammatory changes Hepatic flexure: normal Ascending colon: normal without polyps or inflammatory changes Cecum: normal Terminal ileum: not visualized Impression: Normal colonoscopy Specimens:: None Recommendations:: Follow up examination in about FIVE years or so, sooner if clinically indicated. Complications:: None Estimated blood obtained (mL): 0
== END 2022-11-23 10:41 | disposition home or self-care (01) ==
PROVIDERS: PCP Internal Medicine; Visit Provider Internal Medicine Gastroenterology
PROC: 0DJD8ZZ Inspection of Lower Intestinal Tract, Via Natural or Artificial Opening Endoscopic (ICD-10-PCS; CPT 45378; principal; 2022-11-23 10:30)
DX: Z12.11 Encounter for screening for malignant neoplasm of colon (principal); Z86.010 Personal history of colon polyps; Z79.899 Other long term (current) drug therapy
CPT/HCPCS: G0105

== ENCOUNTER → 2022-12-06 11:48 | Outpatient (CLI) | payer MEDICARE, OTHER, SELFPAY ==
[2022-12-06 13:28] LABS: Basophils # 0.1 K/mm3 (0-0.2); Basophils % 1.1 % (0.1-2.0); Eosinophils # 0.4 K/mm3 (0.0-0.4); Eosinophils % 5.6 % (0.1-12.0); Hematocrit 45.6 % (42.0-52.0); Hemoglobin 15.5 g/dL (14.1-18.0); Lymphocytes # 2.1 K/mm3 (0.7-4.5); Lymphocytes % 34.4 % (10-50); Mean Corpuscular HGB Conc 33.9 g/dL (31.8-35.4); Mean Corpuscular Hemoglobin 30.6 pg (27.0-31.2); Mean Corpuscular Volume 90.3 fl (80-94); Mean Platelet Volume 8.9 fl (7.4-10.4); Monocytes # 0.6 K/mm3 (0.1-1.0); Monocytes % 9.2 % (1.7-9.3); Neutrophils # 3.1 K/mm3 (1.8-7.8); Neutrophils % 49.6 % (37.0-80.0); Platelet Count 255 K/mm3 (142-424); Red Blood Count 5.05 M/mm3 (4.60-6.20); Red Cell Distribution Width 13.8 % (11.5-17.5); White Blood Count 6.2 K/mm3 (4.8-10.8)
[2022-12-06 13:44] LABS: Alanine Aminotransferase 64 U/L (12-78); Albumin Level 4.4 g/dl (3.5-5.0); Albumin/Globulin Ratio 1.5 (1.1-1.8); Alkaline Phosphatase 76 U/L (38-126); Anion Gap 11.2 mEq/L (5-15); Aspartate Amino Transferase 47 U/L (17-59); Bilirubin,Total 0.8 mg/dl (0.2-1.3); Blood Urea Nitrogen 16 mg/dl (9-20); Calcium 8.9 mg/dl (8.4-10.2); Carbon Dioxide 26 mmol/L (22.0-30.0); Chloride 104 mmol/L (98-107); Chol/HDL Ratio 4.8 (1-3.5); Cholesterol 171 mg/dl (140-200); Estimated Glomerular Filt Rate 84 ml/min (>60); GFR (African American) 102 ML/MIN (>60); Globulin 2.9 g/dL (1.3-3.2); Glucose 140 mg/dl (74-100); HDL Cholesterol 36 mg/dl (40-60); Potassium 4.2 mmoL/L (3.5-5.1); Sodium 137 mmol/L (136-145); Total Protein,Serum 7.3 g/dl (6.3-8.2); Triglycerides 63 mg/dl (30-150); VLDL Cholesterol 13 mg/dL (0-40)
[2022-12-06 13:56] LABS: Direct LDL Cholesterol 121.38 mg/dL (100-129)
[2022-12-06 14:15] LABS: Prostate Specific Ag Screen 2.7 ng/ml (0.0-4.0)
[2022-12-08 11:03] LABS: Hemoglobin A1C 7.5 % (4.0-6.0)
== END ==
PROVIDERS: PCP Internal Medicine; Visit Provider Internal Medicine
DX: E78.5 Hyperlipidemia, unspecified (principal); R73.9 Hyperglycemia, unspecified; M54.42 Lumbago with sciatica, left side; M15.0 Primary generalized (osteo)arthritis; N40.3 Nodular prostate with lower urinary tract symptoms; Z12.5 Encounter for screening for malignant neoplasm of prostate; Z79.1 Long term (current) use of non-steroidal anti-inflammatories (NSAID)
CPT/HCPCS: 80053; 80061; 83036; 85025; G0103

== ENCOUNTER → 2023-01-04 15:09 | Outpatient (CLI) | payer MEDICARE, OTHER, SELFPAY ==
--- NOTE | 2023-01-04 15:09 | CT_ITS ---
FINAL REPORT CLINICAL HISTORY: Former smoker x 14 yrs ago. 1 ppd x 40 yrs. Hx COPD, nodule found in Lt lung in prior scan. 0 cancer hx COMPARISON: 12/27/2021 and 04/06/2021 FINDINGS: Low-Dose Chest CT Axial images were obtained from the lung apex to the mid abdomen by computed tomography. Low-dose protocol was utilized. CTDI vol (mGy): 2.90 DLP (mGy-cm): 13.07 There is no axillary adenopathy. There is no hilar or mediastinal adenopathy. The heart is proper size. There is no pericardial or pleural effusion. Lung window images demonstrate a lobular soft tissue nodule in the lateral left upper lobe that measures 13 mm and was 13 mm. There are several calcified granulomas. There are mild changes of emphysema. No new mass or nodule is identified. Limited images of the upper abdomen demonstrate gallstones in the gallbladder. IMPRESSION: Stable lobular soft tissue nodule in the lateral left upper lobe. Cholelithiasis. Lung RADS category 2. Recommend 12 month follow-up low-dose chest CT. Reviewed, Interpreted and Dictated by Sriram Schaffer III, MD Transcribed by Ruby Meza Authenticated and [facility][1]
== END ==
PROVIDERS: PCP Internal Medicine; Visit Provider Internal Medicine Pulmonary Disease
DX: Z87.891 Personal history of nicotine dependence (principal); Z12.2 Encounter for screening for malignant neoplasm of respiratory organs
CPT/HCPCS: 71271

== ENCOUNTER 2023-01-22 09:31 | Inpatient (IN) | payer MEDICARE, OTHER, SELFPAY ==
[2023-01-22] VITALS (39 sets, daily range): BP systolic 64–131; BP diastolic 47–91; PULSE 62–215; RESP 16–20; TEMP 36.6–37; O2SAT 93–100; BMI 29.8; BMI 30.5
--- NOTE | 2023-01-22 09:29 | ECG_ITS ---
APPROVED REPORT Exam: Resting ECG HR:208 bpm ECG Measurements Heart Rate 208 AXES QRSd 232 QRS -79 QT 336 T -26 QTc 437 Conclusion Junctional tachycardia LEFT AXIS DEVIATION [QRS AXIS < -30] LEFT BUNDLE BRANCH BLOCK [120+ ms QRS DURATION, 80+ ms Q/S IN V1/V2, 85+ ms R IN I/aVL/V5/V6] MARKED ST DEPRESSION, CONSIDER SUBENDOCARDIAL INJURY [0.2+ mV ST DEPRESSION] ACUTE ID UNCONFIRMED REPORT Electronically signed by : Xander Xie MD 01/23/2023 03:02:05
--- NOTE | 2023-01-22 09:36 | XR_ITS ---
FINAL REPORT CLINICAL HISTORY: soa FINDINGS: A portable view of the chest was obtained. Comparison is made to a prior exam dated September 2020. Cardiac and mediastinal silhouettes are within normal limits. The lungs are clear. There is no pleural effusion or pneumothorax. IMPRESSION: No acute process on this portable exam. Reviewed, Interpreted and Dictated by Aydee Rojas MD Transcribed by Linwood Nielson Authenticated and [facility]
[2023-01-22 09:47] LABS: Basophils # 0.2 K/mm3 (0-0.2); Basophils % 1.9 % (0.1-2.0); Eosinophils # 0.6 K/mm3 (0.0-0.4); Hematocrit 52.1 % (42.0-52.0); Lymphocytes # 3.4 K/mm3 (0.7-4.5); Lymphocytes % 34.9 % (10-50); Mean Corpuscular HGB Conc 34.9 g/dL (31.8-35.4); Mean Corpuscular Hemoglobin 30.3 pg (27.0-31.2); Mean Platelet Volume 8.4 fl (7.4-10.4); Monocytes # 0.8 K/mm3 (0.1-1.0); Monocytes % 7.8 % (1.7-9.3); Neutrophils # 4.8 K/mm3 (1.8-7.8); Neutrophils % 49.4 % (37.0-80.0); Platelet Count 278 K/mm3 (142-424); Red Blood Count 5.99 M/mm3 (4.60-6.20); Red Cell Distribution Width 13.3 % (11.5-17.5); White Blood Count 9.6 K/mm3 (4.8-10.8)
[2023-01-22 09:51] LABS: Chloride 103 mmol/L (98-107); Potassium 4.1 mmoL/L (3.5-5.1); Sodium 140 mmol/L (136-145)
--- NOTE | 2023-01-22 09:51 | PC.NURSE ---
rad at BS ER at BS
[2023-01-22 09:54] LABS: Alanine Aminotransferase 77 U/L (12-78); Albumin Level 5.1 g/dl (3.5-5.0); Albumin/Globulin Ratio 1.4 (1.1-1.8); Alkaline Phosphatase 94 U/L (38-126); Anion Gap 15.1 mEq/L (5-15); Aspartate Amino Transferase 56 U/L (17-59); Blood Urea Nitrogen 14 mg/dl (9-20); Calcium 9.6 mg/dl (8.4-10.2); Carbon Dioxide 26 mmol/L (22.0-30.0); Creatinine Clearance Estimated 101 mL/min (50-200); Estimated Glomerular Filt Rate 75 ml/min (>60); GFR (African American) 90 ML/MIN (>60); Globulin 3.7 g/dL (1.3-3.2); Glucose 199 mg/dl (74-100); Magnesium 1.7 mg/dl (1.6-2.3); Total Protein,Serum 8.8 g/dl (6.3-8.2)
[2023-01-22 10:03] LABS: NT Pro Brain Natriuretic Pep. 45.9 pg/mL (0-125)
--- NOTE | 2023-01-22 10:06 | ECG_ITS ---
APPROVED REPORT Exam: Resting ECG HR:90 bpm ECG Measurements Heart Rate 90 AXES UT 176 P 51 QRSd 97 QRS -53 QT 372 T 56 QTc 420 Conclusion SINUS RHYTHM PATTERN CONSISTENT WITH PULMONARY DISEASE INCOMPLETE RIGHT BUNDLE BRANCH BLOCK [90+ ms QRS DURATION, TERMINAL R IN V1/V2, 40+ ms S IN I/aVL/V4/V5/V6] LEFT ANTERIOR FASCICULAR BLOCK [QRS AXIS <= -45, QR IN I, RS IN II] ABNORMAL ECG UNCONFIRMED REPORT Electronically signed by : Xander Xie MD 01/23/2023 03:01:20
[2023-01-22 10:07] LABS: Troponin I < 0.01 ng/ml (0.00-0.034)
--- NOTE | 2023-01-22 10:07 | PC.NURSE ---
paging for ed to speak to
--- NOTE | 2023-01-22 10:09 | HMH.EDGENADL ---
Discharge Plan Disposition Patient Disposition: Admitted As Inpatient Prescriptions Prescriptions: No Action valacyclovir [Valtrex] 500 mg tablet 500 mg PO DAILY famotidine [Pepcid] 20 mg Tablet 20 mg PO BID meloxicam 7.5 mg tablet 7.5 mg PO DAILY Label Comments: TAKE 1 TABLET BY MOUTH ONCE DAILY tamsulosin 0.4 mg capsule 0.4 mg PO HS Label Comments: TAKE 1 CAPSULE BY MOUTH ONCE DAILY AT BEDTIME Referrals Follow up/Referrals: Provider,Referral, MD [Primary Care Provider] - See instructions Clinical Impressions Clinical Impression: Ventricular tachycardia Discharge ED Provider: Mauricio Jasso General Adult HPI General Chief complaint: Arrhythmia/Palpitations Stated complaint: chest pain Time Seen by Provider: 01/22/23 09:35 Mode of Arrival: Ambulatory Limitations: No Limitations Description of Symptoms (Recalled from ER Triage Doc. by RN): Pt c/o of palpitations, feeling hot and faint onset at 0815 with rapid heart rate on monitor, reports h/o SVT w medication cardioversion approx 1 yr ago History of Present Illness HPI narrative: 67-year-old male with history of COPD SVT presents with episode of palpitations this morning. He said he has had URI over the last few days and then around 815 began having a rapid heartbeat. He felt weak and was brought to the emergency room. He has no chest pain. No shortness of air. He had history of SVT that converted 3 years ago. No fever or chills. Related Data Home Medications Medication Instructions Recorded Confirmed famotidine 20 mg tablet (Pepcid) 20 mg PO BID Reflux/Acid reflux 11/16/22 01/22/23 valacyclovir 500 mg tablet 500 mg PO DAILY Infection 01/10/23 01/22/23 (Valtrex) meloxicam 7.5 mg tablet 7.5 mg PO DAILY Pain 01/22/23 01/22/23 tamsulosin 0.4 mg capsule 0.4 mg PO HS PROSTATE 01/22/23 01/22/23 Allergies Allergy/AdvReac Type Severity Reaction Status Date / Time codeine AdvReac Mild Vomiting Verified 01/10/23 10:50 [facility] Disclaimer: The information contained in this section may have been updated after the patient was seen, as this information can be updated by other users. Medical History Allergic rhinitis COPD (chronic obstructive pulmonary disease) Dyspnea on exertion Encounter for screening for malignant neoplasm of lung in current smoker with 30 pack year history or greater Hx of acute arthritis Hx of gastroesophageal reflux (GERD) Lung nodule Pulmonary emphysema Stopped smoking with greater than 30 pack year history Surgical History No significant past surgical history Family History Other Cancer Social History Smoking Status: Never smoker alcohol intake: never substance use type: denies use current occupational status: employed Travel in the last 8 weeks: None household members: spouse housing: house lives independently: Yes marital status: education level: high school current occupation: [employer] current occupational exposures/hazards: Yes caffeine: Yes do you feel safe at home: Yes victim of physical abuse: No victim of emotional abuse: No victim of sexual abuse: No would you like helpful sources: No ROS Obtained: Yes All systems reviewed & no additional complaints except as documented Constitutional Constitutional: Reports fatigue and Denies headache(s) Eyes Eyes: Denies dry eyes ENT Ears, Nose, Mouth, and Throat: Reports dizziness, Denies dry mouth and Denies headache(s) Cardiovascular Cardiovascular: Denies diaphoresis and Denies dyspnea Respiratory Respiratory: Denies dyspnea and Denies wheezing Gastrointestinal Gastrointestingal: Denies constipation Genitourinary Male Genitourinary: Denies flank pain Musculoskeletal Musculoskeletal: Denies joint stiffness Integumentary/Breasts Skin/Breast:
--- NOTE | 2023-01-22 10:09 | PC.NURSE ---
dr harding spoke with absorption plant operator helper said he would come over in a few to er
--- NOTE | 2023-01-22 10:14 | HMH.PHAINT1 ---
Pharmacy Intervention Comments: MEDICATION RECONCILIATION COMPLETED ON PATIENT USING EXTERNAL FILL HISTORY FROM PHARMACY. -LAUREN HELMS, MIKEYD
[2023-01-22 10:24] LABS: Thyroid Stimulating Hormone 1.66 uIU/mL (0.465-4.68)
--- NOTE | 2023-01-22 10:45 | PC.NURSE ---
checked on pt at this time, pt sitting up in bed, states no needs at this time, call light in reach.
--- NOTE | 2023-01-22 11:10 | PC.NURSE ---
pt sitting up in bed reading newspaper, requests a drink, okayed per ER MD, gave pt bottle of water
--- NOTE | 2023-01-22 11:12 | PC.NURSE ---
spoke with sandoval vasquez aprn from cardiology, notified her of consult on pt. states will be down to see pt.
--- NOTE | 2023-01-22 11:43 | PC.NURSE ---
dr. harding at
--- NOTE | 2023-01-22 11:50 | PC.NURSE ---
per dr. harding admit to hospitalist and plans to cath pt tomorrow. waiting marketing communications manager back from dr. oneil
[2023-01-22 11:56] LABS: Coronavirus 19, PCR Not Detected (NotDetected); Influenza A, PCR Not Detected (NotDetected); Influenza B, PCR Not Detected (NotDetected)
--- NOTE | 2023-01-22 12:03 | PC.NURSE ---
notified care management of admission
--- NOTE | 2023-01-22 12:06 | CA_ITS ---
APPROVED REPORT EXAM: Comprehensive 2D, Doppler, and color-flow Echocardiogram Vascular Technologist Sonographer: Lynsey Sellers RDCS Ht: 6 ft 0 in Wt: 220lbs BSA: 2.22 BP: 127/91 mmHg Indications: SVT,COPD,PALPS 2D Dimensions LVOT 2.37 cm (M/F) 1.5-2.5 M-Mode Dimensions RVDd 2.87 cm (0.9-2.6) LA Diam 3.62 cm (1.9-4.0) LVDd 5.53 cm (3.5-5.7) Ao Diam 4.22 cm (2.0-3.7) LVDs 3.84 cm (3.5-5.7) IVSd 0.80 cm (0.6-1.1) PWd 1.14 cm (0.6-1.1) EF (Teich) 57.50% FS 30.60% EDV (Teich) 149.30 mL ESV (Teich) 63.50 mL LV Diastology E Decel Time 150.00 (160-240 msec) E/A Ratio 0.8 MED E' 6.50 (< 7 cm/sec) E'/MED E' Ratio 10.09 (>14) LAT E' 5.70 (<10 cm/sec) E/LAT E' Ratio 11.51 (>14) Mitral Valve MV E Max Ben. 66.00 (40-130 cm/s) MV A Velocity 85.00 (40-130 cm/s) E/A Ratio 0.78 MV Decel. Time 150.00 (160-240 ms) MV PHT 44.00 ms Left Ventricle Left atrium is mildly enlarged, left ventricle is normal size mild concentric left ventricular hypertrophy, estimated ejection fraction 55% with no regional wall motion abnormality, grade 1 diastolic dysfunction seen without tissue Doppler evidence of reduced left atrial pressure. Right Ventricle Right atrium and right ventricular mildly enlarged with normal contractility. Aortic Valve Aortic valve is minimally thickened and fibrosed there is no aortic stenosis or aortic insufficiency. Mitral Valve Mitral valve is grossly normal, there is trace mitral regurgitation. Tricuspid Valve Tricuspid valve grossly normal, there is trace tricuspid regurgitation, tricuspid regurgitation jet velocity is inadequate for calculation of the right ventricular systolic pressure. Pulmonic Valve Pulmonic valve is poorly visualized. Great Vessels Aortic root is normal size. Inferior vena cava is poorly visualized. Pericardium No significant pericardial effusion noted. Conclusion 1. Mild biatrial normal, normal left ventricular size, mild concentric left ventricular hypertrophy, estimated ejection fraction 55% with no regional wall motion abnormality, grade 1 diastolic dysfunction seen without tissue Doppler evidence of raise left atrial pressure. 2. Mildly enlarged right ventricle with normal contractility. 3. Trace mitral and tricuspid regurgitation. 4. No significant pericardial effusion noted. 5. Inferior vena cava is poorly visualized. Electronically signed by : Jamal Perez MD 01/23/2023 06:43:09
--- NOTE | 2023-01-22 12:07 | PC.NURSE ---
notified cv lab of echo order
--- NOTE | 2023-01-22 12:23 | EXP.CARD.CON ---
History of Present Illness History of Present Illness Consult date: 01/22/23 Requesting physician: Zion Cee Chief complaint: Palpitations History of present illness: 67 year old white male with past medical hx of HLD, SVT and recent abx treatment for prostatitis presented to ER with complaint of palpitations, chest heaviness, and feeling flushed. Patient reports he was at work this morning at [employer] when symptoms started. Reports multiple episodes of this over lifetime and previously was diagnosed with svt. Last episode was 2 years ago. Upon presentation to ER patient was in sustained VT vs. SVT at a rate of 208. Patient was started on amio drip and converted to sr rate of 90. Labs essentially unremarkable. Chest x-ray negative for acute process. Patient reports he feels great now and would like to go home. Patient has a hx of 1 ppd smoking x 40 years. Recently on cefuroxime. [facility] Disclaimer: The information contained in this section may have been updated after the patient was seen, as this information can be updated by other users. Medical History Allergic rhinitis COPD (chronic obstructive pulmonary disease) Dyspnea on exertion Encounter for screening for malignant neoplasm of lung in current smoker with 30 pack year history or greater Hx of acute arthritis Hx of gastroesophageal reflux (GERD) Lung nodule Pulmonary emphysema Stopped smoking with greater than 30 pack year history Surgical History No significant past surgical history Family History Other Cancer Social History (Updated 01/22/23 @ 14:35 by Axel Luevano RN) Smoking Status: Former smoker smoking status stop date: stopped 14 years ago second hand exposure: No alcohol intake: current substance use type: denies use current occupational status: employed Travel in the last 8 weeks: None adopted: No caregiver/support person: Yes (Doreen Powell) foster care: No household members: spouse housing: house lives independently: Yes marital status: number of children: 6 number of grandchildren: 14 education level: high school service: No group home: No current occupation: [employer] current occupational exposures/hazards: Yes caffeine: Yes physical activity: none frequency: 1-2 times per week duration: 15-30 minutes/day duane/tenriism: Orthodox do you feel safe at home: Yes victim of physical abuse: No victim of emotional abuse: No victim of sexual abuse: No would you like helpful sources: No Review of Systems Review of Systems Review of systems:: pertinent systems reviewed and negative unless documented below Constitutional Constitutional: Denies headache(s) ENT Ears, Nose, Mouth, and Throat: Reports dizziness and Denies headache(s) *Cardiovascular Cardiovascular: Reports chest pain *Neurologic Neurologic: Reports dizziness and Denies headache(s) Exam Data for Last 24 hours Vital signs and Labs for Last 24 Hours: Temp Pulse Resp BP Pulse Ox 98.0 F 88 20 106/68 L 100 01/22/23 09:33 01/22/23 12:16 01/22/23 12:16 01/22/23 12:16 01/22/23 12:16 Laboratory Results - last 24 hr 01/22/23 09:36: WBC 9.6, RBC 5.99, Hgb 18.0, Hct 52.1 H, MCV 87.0, MCH 30.3, MCHC 34.9, RDW 13.3, Plt Count 278, MPV 8.4, Neut % (Auto) 49.4, Lymph % (Auto) 34.9, [place] % (Auto) 7.8, Eos % (Auto) 6.0, Baso % (Auto) 1.9, Neut # (Auto) 4.8, Lymph # (Auto) 3.4, [place] # (Auto) 0.8, Eos # (Auto) 0.6 H, Baso # (Auto) 0.2 01/22/23 09:36: Sodium 140, Potassium 4.1, Chloride 103, Carbon Dioxide 26, Anion Gap 15.1 H, BUN 14, Creatinine 1.00, Estimated Creat Clear 101, Estimated GFR 75, Est GFR ( Amer) 90, Glucose 199 H, Calcium 9.6, Magnesium 1.7, Total Bilirubin 1.0, AST 56, ALT 77, Alkaline Phosphatase 94, Troponin I < 0.01, NT-Pro-B Natriuret Pep 45.9, Total Protein 8.8 H, Albumin 5.1 H, Valery
--- NOTE | 2023-01-22 12:28 | PC.NURSE ---
cv lab staff at for echo
--- NOTE | 2023-01-22 12:59 | PC.NURSE ---
1256-green top tube sent to lab for 2nd troponin at this time
--- NOTE | 2023-01-22 13:02 | PC.NURSE ---
spoke with housekeeper manager, states there are discharges in for second floor pts and she will have to move some pts around and then will be able to give room assignments
[2023-01-22 13:22] LABS: Troponin I 0.07 ng/ml (0.00-0.034)
--- NOTE | 2023-01-22 13:33 | PC.NURSE ---
Report given to SYED Soler inpt unit for patient transfer to room 219. No further questions
--- NOTE | 2023-01-22 13:37 | PC.NURSE ---
rounded on pt unhooked so he could use restroom, @ bs
--- NOTE | 2023-01-22 13:39 | PC.NURSE ---
Report received from ER.
--- NOTE | 2023-01-22 14:06 | PC.NURSE ---
Inpatient team at bedside to transport pt
[2023-01-22 15:52] LABS: Troponin I 0.11 ng/ml (0.00-0.034)
--- NOTE | 2023-01-22 17:41 | PC.NURSE ---
Addendum entered by Axel Luevano RN 01/22/23 17:42: Dr. Cee at bedside Original Note: Dr. Guillen at bedside.
--- NOTE | 2023-01-22 18:21 | EXP.HP ---
History of Present Illness *Admission Date: 01/22/23 *Reason for visit:: tachycardia *History of present illness: Mr. Powell is a pleasant 67-year-old male with past medical history of hyperlipidemia, SVT, and recent prostatitis. Presented to the ER today for report of chest tightness and palpitations. He was at work this morning when his symptoms began. Reports multiple episodes over his adult life that previously were diagnosed as SVT and treated with adenosine. Has not been on any medications to control his heart rate. Has not had an episode in years. Upon arrival to the ER, noted to be in sustained V. tach. Was started on amiodarone because of his rate greater than 200. He converted to a sinus rhythm with a rate in the 90s shortly after starting the amiodarone drip. Remainder of his labs were unremarkable. Chest imaging reviewed and was negative. Cardiology consulted while patient in the ER, recommended admission. Medicine consulted for admission. After arrival to the floor, patient states he is feeling well. Has no acute complaints. Continuing on his amiodarone drip. Sinus rhythm on telemetry. Stable on room air Reports previous history of smoking, has not smoked in at least 14 years. Smoked for over 40 years however with ~40pk/yr hx. [facility] Disclaimer: The information contained in this section may have been updated after the patient was seen, as this information can be updated by other users. Medical History Allergic rhinitis COPD (chronic obstructive pulmonary disease) Dyspnea on exertion Encounter for screening for malignant neoplasm of lung in current smoker with 30 pack year history or greater Hx of acute arthritis Hx of gastroesophageal reflux (GERD) Lung nodule Pulmonary emphysema Stopped smoking with greater than 30 pack year history Surgical History No significant past surgical history Family History Cancer Social History Smoking Status: Former smoker smoking status stop date: stopped 14 years ago second hand exposure: No alcohol intake: current substance use type: denies use current occupational status: employed Travel in the last 8 weeks: None adopted: No caregiver/support person: Yes (Doreen Powell) foster care: No household members: spouse housing: house lives independently: Yes marital status: number of children: 6 number of grandchildren: 14 education level: high school service: No custodial: No current occupation: [employer] current occupational exposures/hazards: Yes caffeine: Yes physical activity: none frequency: 1-2 times per week duration: 15-30 minutes/day duane/mandaen: Restorationist do you feel safe at home: Yes victim of physical abuse: No victim of emotional abuse: No victim of sexual abuse: No would you like helpful sources: No Review of Systems Review of Systems Review of systems (narrative): 14 point review of systems performed, pertinent positives and negatives as per HPI Constitutional Constitutional: Denies headache(s) ENT Ears, Nose, Mouth, and Throat: Reports dizziness and Denies headache(s) *Neurologic Neurologic: Reports dizziness and Denies headache(s) Meds Home Medications and Allergies Home Medications Medication Instructions Recorded Confirmed Type famotidine 20 mg tablet (Pepcid) 20 mg PO BID Reflux/Acid reflux 11/16/22 01/22/23 History valacyclovir 500 mg tablet 500 mg PO DAILY Infection 01/10/23 01/22/23 History (Valtrex) meloxicam 7.5 mg tablet 7.5 mg PO DAILY Pain 01/22/23 01/22/23 History tamsulosin 0.4 mg capsule 0.4 mg PO HS PROSTATE 01/22/23 01/22/23 History New Prescriptions to Start Prescriptions: Allergies Allergy/AdvReac Type Severity Reaction Status Date / Time pseudoephedrine AdvReac S
[2023-01-23] VITALS (24 sets, daily range): BP systolic 111–155; BP diastolic 58–90; PULSE 49–70; RESP 16–20; TEMP 36.4–36.7; O2SAT 91–98; BMI 30.5
--- NOTE | 2023-01-23 06:24 | PC.NURSE ---
Pt c/o of a MORALES 1x during night, one time dose tylenol administered. Pt has been bradycardic at times with HR in 50s, pt remains asymptomatic. Pt O2 sat will also drop to upper 80s while asleep but recovers quickly when woken up. Amiodarone is currently running at 0.5 mg/min. Pt has remained NSR. Call light within reach.
[2023-01-23 06:29] LABS: Basophils # 0.1 K/mm3 (0-0.2); Basophils % 1.4 % (0.1-2.0); Eosinophils # 0.4 K/mm3 (0.0-0.4); Eosinophils % 5.2 % (0.1-12.0); Hematocrit 47.1 % (42.0-52.0); Lymphocytes # 2.6 K/mm3 (0.7-4.5); Lymphocytes % 33.6 % (10-50); Mean Corpuscular HGB Conc 33.9 g/dL (31.8-35.4); Mean Corpuscular Hemoglobin 29.9 pg (27.0-31.2); Mean Corpuscular Volume 88.3 fl (80-94); Mean Platelet Volume 8.8 fl (7.4-10.4); Monocytes # 0.6 K/mm3 (0.1-1.0); Monocytes % 7.5 % (1.7-9.3); Neutrophils % 52.3 % (37.0-80.0); Platelet Count 222 K/mm3 (142-424); Red Blood Count 5.33 M/mm3 (4.60-6.20); Red Cell Distribution Width 13.5 % (11.5-17.5); White Blood Count 7.6 K/mm3 (4.8-10.8)
[2023-01-23 06:41] LABS: Alanine Aminotransferase 60 U/L (12-78); Albumin Level 4.2 g/dl (3.5-5.0); Albumin/Globulin Ratio 1.4 (1.1-1.8); Alkaline Phosphatase 65 U/L (38-126); Anion Gap 14.1 mEq/L (5-15); Aspartate Amino Transferase 42 U/L (17-59); Blood Urea Nitrogen 12 mg/dl (9-20); Calcium 8.8 mg/dl (8.4-10.2); Carbon Dioxide 22 mmol/L (22.0-30.0); Chloride 103 mmol/L (98-107); Chol/HDL Ratio 5.2 (1-3.5); Cholesterol 165 mg/dl (140-200); Creatinine Clearance Estimated 104 mL/min (50-200); Estimated Glomerular Filt Rate 112 ml/min (>60); GFR (African American) 136 ML/MIN (>60); Globulin 2.9 g/dL (1.3-3.2); Glucose 150 mg/dl (74-100); HDL Cholesterol 32 mg/dl (40-60); Potassium 4.1 mmoL/L (3.5-5.1); Sodium 135 mmol/L (136-145); Total Protein,Serum 7.1 g/dl (6.3-8.2); Triglycerides 115 mg/dl (30-150); VLDL Cholesterol 23 mg/dL (0-40)
[2023-01-23 06:45] LABS: Hemoglobin 15.9 g/dL (14.1-18.0)
[2023-01-23 06:51] LABS: Direct LDL Cholesterol 106.43 mg/dL (100-129)
--- NOTE | 2023-01-23 08:09 | IR_ITS ---
APPROVED REPORT Patient Location: Inpatient Blender / Cook: SARAH Ignacio RT (R) PROCEDURES Left heart catheterization Left ventriculogram Selective coronary angiogram Drug-eluting stent deployment to the proximal LAD Intravascular ultrasound to the LAD INDICATION Acute non-ST elevation myocardial infarction, Coronary artery disease, Ventricular tachycardia Informed consent was obtained prior to the procedure. COMPLICATIONS None Estimated Blood Loss: Less than 10 mls TECHNIQUE One percent lidocaine used to anesthetize the right anterior aspect of the wrist. The right radial artery was accessed via the Seldinger technique. A 6 Khmer sheath was placed in the right radial artery. 150 mg magnesium sulfate, 800 mcg of nitroglycerin, 1mg Lidocaine and 5000 U Heparin were given through the arterial sheath. The papa catheter was also used to perform left heart catheterization, left ventriculogram and selective coronary angiogram. At the end the diagnostic angiogram therapeutic heparin was administered giving a therapeutic ACT and the guide catheter was placed in the left main artery followed by Choice PT extra-support wire being placed down the LAD. A 3.5 x 38 mm resolute Jean Pierre stent was deployed initially at 16 delon. A 4 mm x 12 mm balloon was then brought proximally and deployed at 20 delon to post dilate. Intravascular ultrasound probe was advanced which demonstrated the proximal portion of the stent was slightly undersized and an eccentric calcified lesion persisted. A 4 mm x 12 mm resolute Morrison stent was then deployed in the proximal LAD overlapping the first stent and deployed at 20 delon. The balloon was slightly advanced and deployed at 24 delon to post dilate. Excellent angiographic results were obtained with SARAH-3 flow being present before and after the procedure. At the end of the procedure the apparatus was removed the sheath was removed and hemostasis was achieved using TR banding patient was transferred to the postop holding in stable condition ANGIOGRAPHIC RESULTS The left main artery Normal The left anterior descending artery Has proximal concentric 70% followed by 50% stenosis The circumflex artery Massively large dominant and normal The right coronary artery Nondominant normal The LIMA ventriculogram reveals Slight left ventricular dilatation with anterior apical hypokinesis estimated ejection fraction is 30 to 35% The left ventricular end-diastolic pressure 25 mmHg IMPRESSION Severe disease in the proximal LAD which was a likely precipitant for the ischemic ventricular tachycardia which then produced a type II myocardial infarction with anterior apical regional wall motion abnormality Severely reduced ejection fraction likely stunned Moderately elevated LVEDP Successful stenting of the proximal LAD severe disease reduced to 0% with 2 contiguous drug-eluting stents PLAN 1. Brilinta 90 twice daily plus aspirin 81 mg daily 2. LDL less than 55 to be achieved with high intensity statin 3. Convert amiodarone to 200 mg p.o. twice daily 4. Beta-blockers will be required prior to discharge 5. Start Entresto with plans to uptitrate as outpatient. 6. Avoidance of tobacco products 7. Because of ventricular tachycardia and stunned myocardium a LifeVest should be placed prior to discharge 8. Repeat echocardiogram in 2 weeks as I suspect the ejection fraction will improve 9. Patient has a long history of SVT with aberrancy therefore he will be referred to Dr. Ríos at [facility] for SVT ablation Electronically signed by : Al Aquino MD 01/23/2023 11:38:24
--- NOTE | 2023-01-23 09:01 | EXP.CARD.PN ---
Subjective Subjective Date: 01/23/23 Time: 08:30 Principal diagnosis: vtach Interval history: No events throughout the evening, remains nsr in the 50s. Am labs reviewed. Echo shows an EF of 55 with grade one diastolic dysfunction. Plan for [facility] today. Patient denies any complaints. Exam Data for Last 24 hours Vital signs and Labs for Last 24 Hours: Temp Pulse Resp BP Pulse Ox 97.5 F L 54 L 16 130/72 93 L 01/23/23 07:49 01/23/23 06:00 01/23/23 06:00 01/23/23 06:00 01/23/23 06:00 Laboratory Results - last 24 hr 01/22/23 09:36: WBC 9.6, RBC 5.99, Hgb 18.0, Hct 52.1 H, MCV 87.0, MCH 30.3, MCHC 34.9, RDW 13.3, Plt Count 278, MPV 8.4, Neut % (Auto) 49.4, Lymph % (Auto) 34.9, [place] % (Auto) 7.8, Eos % (Auto) 6.0, Baso % (Auto) 1.9, Neut # (Auto) 4.8, Lymph # (Auto) 3.4, [place] # (Auto) 0.8, Eos # (Auto) 0.6 H, Baso # (Auto) 0.2 01/22/23 09:36: Sodium 140, Potassium 4.1, Chloride 103, Carbon Dioxide 26, Anion Gap 15.1 H, BUN 14, Creatinine 1.00, Estimated Creat Clear 101, Estimated GFR 75, Est GFR ( Amer) 90, Glucose 199 H, Calcium 9.6, Magnesium 1.7, Total Bilirubin 1.0, AST 56, ALT 77, Alkaline Phosphatase 94, Troponin I < 0.01, NT-Pro-B Natriuret Pep 45.9, Total Protein 8.8 H, Albumin 5.1 H, Globulin 3.7 H, Albumin/Globulin Ratio 1.4, TSH 1.66 01/22/23 11:51: SARS-CoV-2 (PCR) Not detected, Influenza A Untype (PCR) Not detected, Influenza Type B (PCR) Not detected 01/22/23 12:56: Troponin I 0.07 H 01/22/23 15:28: Troponin I 0.11 H 01/23/23 05:20: WBC 7.6, RBC 5.33, Hgb 15.9 D, Hct 47.1, MCV 88.3, MCH 29.9, MCHC 33.9, RDW 13.5, Plt Count 222, MPV 8.8, Neut % (Auto) 52.3, Lymph % (Auto) 33.6, [place] % (Auto) 7.5, Eos % (Auto) 5.2, Baso % (Auto) 1.4, Neut # (Auto) 4.0, Lymph # (Auto) 2.6, [place] # (Auto) 0.6, Eos # (Auto) 0.4, Baso # (Auto) 0.1 01/23/23 05:20: Sodium 135 L, Potassium 4.1, Chloride 103, Carbon Dioxide 22, Anion Gap 14.1, BUN 12, Creatinine 0.70 D, Estimated Creat Clear 104, Estimated GFR 112, Est GFR ( Amer) 136 D, Glucose 150 H D, Calcium 8.8, Magnesium 2.0 D, Total Bilirubin 1.0, AST 42, ALT 60, Alkaline Phosphatase 65, Total Protein 7.1, Albumin 4.2 D, Globulin 2.9, Albumin/Globulin Ratio 1.4, Triglycerides 115, Cholesterol 165, LDL Cholesterol Direct 106.43, VLDL Cholesterol 23, HDL Cholesterol 32 L, Cholesterol/HDL Ratio 5.2 H I & O for Last 24 hours: Intake & Output 01/20/23 01/21/23 01/22/23 01/23/23 23:59 23:59 23:59 23:59 Intake Total 430 / 430 0 / 0 Output Total 75 / 75 Balance 355 / 355 0 / 0 Weight 225 lb 5 oz 225 lb 4.999 oz Constitutional Constitutional: no acute distress *Routine Respiratory Exam Respiratory: Present CTA bilaterally and symmetric chest movement *Routine Cardiovascular Exam Cardiovascular: Present Normal S1, Normal S2 and bradycardia *Routine Abdominal Exam Abdominal: Present soft and normoactive bowel sounds; Absent tenderness *Routine Extremities Exam Extremities: Present full ROM and normal capillary refill; Absent edema *Routine Skin Exam Skin: Present intact, dry and warm Detailed Neck Exam: Thyroids Thyroid: Absent bruit Progress Note: A&P Assessment and plan (1) Ventricular tachycardia: Status: Acute (2) Supraventricular tachycardia: Status: Acute (3) Class 1 obesity: Status: Chronic Assessment and Plan Assessment and Plan for All Diagnoses:: Sustained Vtach -resolved after amio started -continue bisoprolol 10 mg po daily -add amio 200mg po BID -[facility] today for ischemic evaluation. Discussed risks vs. benefits, he is agreeable -echo shows an EF of 55, grade one diastolic dysfunction, no wall motion abnormalities noted -Lifevest prior to dc home for sustained vt. Patient is to follow up with Dr. Ríos for EP consult. CAD -Troponin trending up to 0.11 -[facility] 01/23- Stenting to LAD for severe disease, anterior apical regional wall motion abnormality with severely reduced EF from stunned myocardium noted on cath report. Dis
--- NOTE | 2023-01-23 10:23 | PC.NURSE ---
Pt left floor with microbiology lab analyst RN at 1023
[2023-01-23 12:34] LABS: CATHL Activated Clotting Time > 400 SEC (74-125)
--- NOTE | 2023-01-23 12:39 | PC.NURSE ---
upon arrival to unit, pt was c/o headache. Dr Cee gave order at 1229 for tylenol 650mg po q6hp mild-mod pain.
--- NOTE | 2023-01-23 13:57 | PC.NURSE ---
1327 verified with sandoval that pt is to complete 24hrs of Amiodarone drip before transition to PO. notified pharmacy as well.
--- NOTE | 2023-01-23 14:23 | PC.NURSE ---
1400 Ok per Yamilet in cardiology that pt can be transferred out of stepdown [address] Cee to transfer pt out of stepdown
--- NOTE | 2023-01-23 14:26 | PC.NURSE ---
Addendum entered by Leila Serrano RN 01/23/23 16:40: 1610 2 ml of air released 1630 traclet removed, incision site cleaned with chlorhexadine and telfa and tegaderm placed on site. Addendum entered by Leila Serrano RN 01/23/23 16:00: 1500 released 2 ml of air 1545 released 2 ml of air Addendum entered by Leila Serrano RN 01/23/23 14:43: 1435 released 2 ml of air Original Note: 1345 released 2 ml of air pt ambulated to bathroom with assistance from staff, nad noted. 1415 released 2 ml of air
--- NOTE | 2023-01-23 16:31 | EXP.DC.SUM ---
General Admission date:: 01/22/23 Discharge date: 01/23/23 HPI HPI HPI: Mr. Powell is a pleasant 67-year-old male with past medical history of hyperlipidemia, SVT, and recent prostatitis. Presented to the ER today for report of chest tightness and palpitations. He was at work this morning when his symptoms began. Reports multiple episodes over his adult life that previously were diagnosed as SVT and treated with adenosine. Has not been on any medications to control his heart rate. Has not had an episode in years. Upon arrival to the ER, noted to be in sustained V. tach. Was started on amiodarone because of his rate greater than 200. He converted to a sinus rhythm with a rate in the 90s shortly after starting the amiodarone drip. Remainder of his labs were unremarkable. Chest imaging reviewed and was negative. Cardiology consulted while patient in the ER, recommended admission. Medicine consulted for admission. After arrival to the floor, patient states he is feeling well. Has no acute complaints. Continuing on his amiodarone drip. Sinus rhythm on telemetry. Stable on room air Reports previous history of smoking, has not smoked in at least 14 years. Smoked for over 40 years however with ~40pk/yr hx. Hospital Course Hospital Course Hospital Course: 67-year-old male admitted for sustained VT. Started on amiodarone drip on admission. Converted to sinus rhythm. Cardiology consulted. Problems addressed during hospitalization as follows: Sustained Vtach CAD Resolved after amio started. Started on Bisoprolol. Transitioned to Amiodarone 200mg BID to continue at discharge. Cardiology consulted. Patient taken for left heart cath for ischemic evaluation Due to SVT and elevation in troponin to 0.11. Noted to have severe LAD disease. Stenting to distal LAD. Concern for anterior apical regional wall motion abnormality with severely reduced EF from stunned myocardium on ventriculogram during left heart cath. Echo shows an EF of 55, grade one diastolic dysfunction, no wall motion abnormalities noted. Lifevest prior to dc home for sustained vt. Patient is to follow up with Dr. Ríos for EP consult. DAPT with Brilinta and aspirin, start Entresto 24/26mg BID, Continue Bisoprolol 10mg po daily. HFpEF/Diastolic dysfunction NYHA I-II EF 55, grade one DD on official echo read. Severely reduced EF noted on Left heart cath cath/ventriculogram. Contradiction between echo and actual cath findings. Continue goal-directed therapy. Bisoprolol 10 mg daily. Add jardiance 10 mg p.o. daily and Entresto 24/26mg p.o. daily. Asymptomatic at time of discharge. Hyperlipidemia LDL 106, Start Crestor 40 mg p.o. daily Patient medically stable for discharge home. Patient contact information sent to Dr. Ríos who will see patient for vt. Patient will go home with lifevest, fitted prior to DC. Follow up in Cards office in 1 week. Will consider stopping amio at office follow up after sees Dr. Ríos. Exam Data for Last 24 hours Vital signs and Labs for Last 24 Hours: Temp Pulse Resp BP Pulse Ox 98.0 F 60 18 140/72 97 01/23/23 15:11 01/23/23 15:11 01/23/23 15:11 01/23/23 15:11 01/23/23 15:11 Laboratory Results - last 24 hr 01/23/23 05:20: WBC 7.6, RBC 5.33, Hgb 15.9 D, Hct 47.1, MCV 88.3, MCH 29.9, MCHC 33.9, RDW 13.5, Plt Count 222, MPV 8.8, Neut % (Auto) 52.3, Lymph % (Auto) 33.6, [place] % (Auto) 7.5, Eos % (Auto) 5.2, Baso % (Auto) 1.4, Neut # (Auto) 4.0, Lymph # (Auto) 2.6, [place] # (Auto) 0.6, Eos # (Auto) 0.4, Baso # (Auto) 0.1 01/23/23 05:20: Sodium 135 L, Potassium 4.1, Chloride 103, Carbon Dioxide 22, Anion Gap 14.1, BUN 12, Creatinine 0.70 D, Estimated Creat Clear 104, Estimated GFR 112, Est GFR ( Amer) 136 D, Glucose 150 H D, Calcium 8.8, Magnesium 2.0 D, Total Bilirubin 1.0, AST 42, ALT 60, Alkaline Phosphatase 65, Total Protein 7.1, Albumin 4.2 D, Globulin 2.9, Albumin/Globulin Ratio 1.4, Triglycerides 115, Reema
--- NOTE | 2023-01-24 07:42 | HMH.PHACL ---
[facility] [employer] Installer Discharge Med Wet Process [place] Head: Aaron Powell WAS DISCHARGED FROM FACILITY AFTER HOURS ON THE FOLLOWING MEDICATIONS: ASPIRIN ATORVASTATIN BISOPROLOL ENTRESTO BRILINTA ALL PRESCRIPTIONS WERE SENT TO [facility].
--- NOTE | 2023-01-24 13:18 | CARE MANAGER ---
Spoke with patient for post-discharge phone interview, no issues noted.
== END 2023-01-23 18:55 | disposition home or self-care (01) | DRG 247 ==
LOC: ER 10:28 → 2ND 12:08
PROVIDERS: Internal Medicine; Admitting Provider Internal Medicine Adolescent Medicine; Emergency Provider Emergency Medicine; Visit Provider Internal Medicine Adolescent Medicine
PROC: 027034Z Dilation of Coronary Artery, One Artery with Drug-eluting Intraluminal Device, Percutaneous Approach (ICD-10-PCS; principal; 2023-01-23 09:45)
DX: I47.1 Supraventricular tachycardia (principal); I47.20 Ventricular tachycardia, unspecified; I25.10 Atherosclerotic heart disease of native coronary artery without angina pectoris; I21.4 Non-ST elevation (NSTEMI) myocardial infarction; Z87.891 Personal history of nicotine dependence; J44.9 Chronic obstructive pulmonary disease, unspecified; J43.9 Emphysema, unspecified; K21.9 Gastro-esophageal reflux disease without esophagitis
CPT/HCPCS: 36415; 71045; 80053; 80061; 83735; 83880; 84443; 84484; 85025; 85347; 92928; 92978; 93005; 93306; 93458; 99152; 99153; 99291; C1725; C1760; C1769; C1876; C9600; C9803; J0282; J1644; J7060; Q9967; U0003; U0005

== ENCOUNTER → 2023-01-31 09:46 | Outpatient (CLI) | payer MEDICARE, OTHER, SELFPAY ==
[2023-01-31 10:32] LABS: Hematocrit 51.3 % (42.0-52.0); Hemoglobin 17.3 g/dL (14.1-18.0)
[2023-01-31 11:36] LABS: Blood Urea Nitrogen 14 mg/dl (9-20); Estimated Glomerular Filt Rate 75 ml/min (>60); GFR (African American) 90 ML/MIN (>60)
== END ==
PROVIDERS: PCP Internal Medicine; Visit Provider Internal Medicine
DX: I47.1 Supraventricular tachycardia (principal)
CPT/HCPCS: 36415; 82565; 84520; 85014; 85018

== ENCOUNTER → 2023-02-06 12:38 | Outpatient (CLI) | payer MEDICARE, OTHER, SELFPAY | PROVIDERS: PCP Internal Medicine; Visit Provider Internal Medicine | DX: R06.09 Other forms of dyspnea (principal); I47.20 Ventricular tachycardia, unspecified | CPT/HCPCS: 93308 ==

== ENCOUNTER → 2023-02-22 10:10 | Outpatient (CLI) | payer MEDICARE, OTHER, SELFPAY ==
[2023-02-22 10:34] LABS: Basophils # 0.1 K/mm3 (0-0.2); Basophils % 0.9 % (0.1-2.0); Eosinophils # 0.1 K/mm3 (0.0-0.4); Eosinophils % 1.5 % (0.1-12.0); Hematocrit 44.9 % (42.0-52.0); Hemoglobin 15.2 g/dL (14.1-18.0); Lymphocytes # 2.8 K/mm3 (0.7-4.5); Lymphocytes % 30.8 % (10-50); Mean Corpuscular HGB Conc 33.9 g/dL (31.8-35.4); Mean Corpuscular Hemoglobin 30.3 pg (27.0-31.2); Mean Corpuscular Volume 89.2 fl (80-94); Mean Platelet Volume 9.3 fl (7.4-10.4); Monocytes # 0.7 K/mm3 (0.1-1.0); Monocytes % 7.6 % (1.7-9.3); Neutrophils # 5.5 K/mm3 (1.8-7.8); Neutrophils % 59.3 % (37.0-80.0); Platelet Count 203 K/mm3 (142-424); Red Blood Count 5.03 M/mm3 (4.60-6.20); Red Cell Distribution Width 13.6 % (11.5-17.5); White Blood Count 9.2 K/mm3 (4.8-10.8)
[2023-02-22 11:12] LABS: Alanine Aminotransferase 50 U/L (12-78); Albumin Level 4.1 g/dl (3.5-5.0); Alkaline Phosphatase 101 U/L (38-126); Anion Gap 11.8 mEq/L (5-15); Aspartate Amino Transferase 33 U/L (17-59); Bilirubin,Indirect 0.6 mg/dL (0.0-0.9); Bilirubin,Total 0.6 mg/dl (0.2-1.3); Bilirubin,Unconjugated 0.6 mg/dL (0.0-1.1); Blood Urea Nitrogen 19 mg/dl (9-20); Calcium 8.8 mg/dl (8.4-10.2); Carbon Dioxide 25 mmol/L (22.0-30.0); Chloride 107 mmol/L (98-107); Chol/HDL Ratio 2.9 (1-3.5); Cholesterol 110 mg/dl (140-200); Estimated Glomerular Filt Rate 75 ml/min (>60); GFR (African American) 90 ML/MIN (>60); Glucose 209 mg/dl (74-100); HDL Cholesterol 38 mg/dl (40-60); Potassium 3.8 mmoL/L (3.5-5.1); Sodium 140 mmol/L (136-145); Total Protein,Serum 6.9 g/dl (6.3-8.2); Triglycerides 105 mg/dl (30-150); VLDL Cholesterol 21 mg/dL (0-40)
[2023-02-22 11:27] LABS: Free T4 (Free Thyroxine) 1.29 ng/dl (0.78-2.19)
[2023-02-22 11:41] LABS: Thyroid Stimulating Hormone 0.94 uIU/mL (0.465-4.68)
== END ==
PROVIDERS: PCP Internal Medicine; Visit Provider Internal Medicine
DX: E78.5 Hyperlipidemia, unspecified (principal); I25.10 Atherosclerotic heart disease of native coronary artery without angina pectoris; I51.89 Other ill-defined heart diseases
CPT/HCPCS: 36415; 80048; 80061; 80076; 83735; 84439; 84443; 85025

== ENCOUNTER → 2023-09-25 13:28 | Outpatient (CLI) | payer MEDICARE, OTHER, SELFPAY ==
--- NOTE | 2023-09-25 13:41 | CT_ITS ---
FINAL REPORT CLINICAL HISTORY: low back pain FINDINGS: CT LUMBAR SPINE, without and with contrast TECHNIQUE: Thin section noncontrast axial CT with sagittal reconstructions. Imaging was performed pre-and post IV contrast demonstration FINDINGS: No fracture is present. Alignment is normal. Following contrast administration no obvious mass or paraspinal fluid collection is present. If there is concern for intracanal mass or fluid collection MRI would be more sensitive T12-L1: Minimal annular disc bulge L1-L2: Mild annular disc bulge. Moderate facet arthropathy. Mild bilateral neural foraminal narrowing. L2-L3: Moderate annular disc bulge and facet arthropathy. Mild central canal stenosis. Moderate bilateral neural foraminal narrowing. L3-L4: Moderate annular disc bulge and facet arthropathy. Ligament flavum hypertrophy. Mild central canal stenosis. Moderate to severe neural foraminal narrowing. L4-L5: Moderate annular disc bulge with moderate facet arthropathy. Moderate central canal stenosis. Severe bilateral neural foraminal narrowing. L5-S1: Mild annular disc bulge. Broad-based left-sided disc protrusion compressing the left S1 nerve root with severe left neural foraminal narrowing. Moderate to severe right neural foraminal narrowing is present. IMPRESSION: 1. No bone destruction or fracture 2. Multilevel degenerative disc disease, most pronounced left-sided L5-S1 This study was performed using automated techniques to achieve radiation exposure as low as reasonably achievable Authenticated and ERN
[2023-09-25 14:06] LABS: Blood Urea Nitrogen 17 mg/dl (9-20); Estimated Glomerular Filt Rate 96 ml/min (>60); GFR (African American) 116 ML/MIN (>60)
== END ==
PROVIDERS: PCP Internal Medicine; Visit Provider Internal Medicine
DX: M54.32 Sciatica, left side (principal); M54.31 Sciatica, right side
CPT/HCPCS: 36415; 72133; 82565; 84520; Q9967

== ENCOUNTER → 2023-10-10 09:39 | Outpatient (POV) | payer MEDICARE, OTHER, SELFPAY ==
--- NOTE | 2023-10-10 10:04 | EXP.PAIN.OV ---
HPI Data of Consult Patient: new to practice Consult date: 10/10/23 Requesting Physician: Amena Peng APRN Primary Care Provider: Eddi Gomez MD Consult Narrative Reason for consult: Low back pain, left leg pain History of present illness: Mr. Powell is a 68 year old male who presents today as a new patient. He is a referral from Eddi Gomez's office. Today he rates his pain a 9 out of 10. Patient states his pain is all in his low back with radiating symptoms down his entire left leg. Patient describes this as a aching, throbbing sensation with numbness and tingling. Patient states this has been going on for years. Patient denies any specific trauma or injury that initially led to his symptoms. Patient states that it does affect his ability perform activities of daily living such as cooking or cleaning or even simple ambulation. He states he cannot stand for long periods of time due to the worsening pain. He states that the pain is debilitating and has interfered with his daily life. Patient denies any previous back surgery or injection history. He has tried [id number] Tylenol and ibuprofen along with heat and ice and topicals with no additional relief. Patient has been given an IM steroid injection however it only lasted a short. Patient states in the past he has gotten these injections and they typically helped his symptoms for more than 6 months however this time it has not provided good relief. He is prescribed Tylenol #2. Patient denies that this provides significant relief and has stated that it has caused stomach upset. He is interested in anything we may be able to help provide relief with. Patient was previously on Plavix related to a heart attack that he had in December. Patient states he is no longer on this but he did have a defibrillator and pacemaker placed. Patient does see Dr. Aquino. His Aayush has been reviewed and is appropriate. CC: Amena Peng APRN [facility] Disclaimer: The information contained in this section may have been updated after the patient was seen, as this information can be updated by other users. Medical History Abnormal computerized axial tomography of chest Allergic rhinitis Bleeding nose COPD (chronic obstructive pulmonary disease) Coronary artery disease Diastolic dysfunction Dyspnea on exertion Encounter for screening for malignant neoplasm of lung in current smoker with 30 pack year history or greater HLD (hyperlipidemia) Hx of acute arthritis Hx of gastroesophageal reflux (GERD) Lung nodule Pulmonary emphysema Stopped smoking with greater than 30 pack year history Surgical History History of cardiac defibrillator placement History of colonoscopy History of heart artery stent History of permanent cardiac pacemaker placement Family History Other Cancer Social History Smoking Status: Former smoker smoking status stop date: stopped 14 years ago second hand exposure: No alcohol intake: current substance use type: denies use current occupational status: retired Travel in the last 8 weeks: None adopted: No caregiver/support person: Yes (Doreen Powell) foster care: No household members: spouse housing: house lives independently: Yes marital status: number of children: 6 number of grandchildren: 14 education level: high school service: No correction: No current occupation: [employer] current occupational exposures/hazards: Yes caffeine: Yes physical activity: none frequency: 1-2 times per week duration: 15-30 minutes/day duane/[employer] do you feel safe at home: Yes victim of physical abuse: No victim of emotional abuse: No victim of sexual abuse: No would you like helpful sources: No Review of Systems Review of Systems Josie
[2023-10-10 10:17] VITALS: BP 130/86; PULSE 88; RESP 18; O2SAT 95; BMI 27.8
== END | disposition home or self-care (01) ==
PROVIDERS: PCP Internal Medicine; Visit Provider Nurse Practitioner Family
DX: M48.062 Spinal stenosis, lumbar region with neurogenic claudication; M51.16 Intervertebral disc disorders with radiculopathy, lumbar region
CPT/HCPCS: 99202; G0463

== ENCOUNTER 2023-10-12 08:05 | Day surgery (SDC) | payer MEDICARE, OTHER, SELFPAY ==
[2023-10-12 08:15] VITALS: BP 124/80; PULSE 80; RESP 16; TEMP 36.8; O2SAT 97; BMI 27.8
[2023-10-12 08:16] VITALS: BP 135/79; PULSE 87; O2SAT 94
[2023-10-12 08:20] VITALS: BP 135/79; PULSE 96; O2SAT 95
[2023-10-12 08:24] VITALS: BP 116/61; PULSE 75; RESP 18; O2SAT 97
--- NOTE | 2023-10-12 08:32 | P.PCN_ITS ---
Procedure Date: 10/12/23 Time: 08:15 Anesthesiologist:: John Jj CRNA Complications:: None Pre-procedure Diagnosis:: Degenerative disc lumbar spine multilevels. Lumbar radiculopathy. Disc bulge lumbar spine L4-5, L5-S1. Post-procedure Diagnosis:: Same. Indications for Procedure:: Patient is a pleasant 68-year-old male who comes our clinic today for left L4-5 and L5-S1 transforaminal epidural steroid injection. Patient complains of low left lumbar back pain as well as left hip and leg radicular symptoms. He rates his pain 7/10. Procedure Details:: Details of the procedure were explained to the patient. The patient was taken t he procedure room placed in the prone position. The area of the lumbar spine was cleansed using chlorhexidine as a cleansing solution. At this time using fluoroscopy guidance markers were placed on the left lateral border of the L4 and L5 vertebral body. The skin and subcutaneous tissue was anesthetized using 1% lidocaine and 25-gauge needle. At this time using a 22-gauge 3-1/2 inch spinal needle the right upper one third of the L4-5 foramen was accessed. The same was done at the left L5-S1 foramen. Needle positions were confirmed and a lateral view using fluoroscopy and contrast dye. At this time 1 cc of 1% lidocaine +20 mg of Depo-Medrol was injected at each level after negative aspiration. Shaniko were removed. Band-Aid applied. Patient tolerated the procedure without difficulty. There are no complications. Plan and Disposition:: Patient was discharged without incident
== END 2023-10-12 08:24 | disposition home or self-care (01) ==
LOC: SC.PAINP 08:06
PROVIDERS: PCP Internal Medicine; Visit Provider Nurse Anesthetist, Certified Registered
DX: M51.16 Intervertebral disc disorders with radiculopathy, lumbar region (principal); M51.26 Other intervertebral disc displacement, lumbar region
CPT/HCPCS: 64483; 64484; J1030

== ENCOUNTER → 2023-10-30 08:23 | Outpatient (POV) | payer MEDICARE, OTHER, SELFPAY ==
[2023-10-30 08:36] VITALS: BP 109/73; PULSE 85; RESP 18; O2SAT 97; BMI 27.9
--- NOTE | 2023-10-30 10:07 | EXP.PAIN.SOA ---
[facility] Pain Management SOAP Note Subjective:: This patient is a very pleasant 68-year-old male that comes our clinic today for follow-up visit after receiving left L4-5 and L5-S1 transforaminal epidural steroid injection on 10/12/2023. Patient reporting 50 to 60% improvement terms of his overall left hip and leg radicular symptoms. However, the left leg radicular symptoms are still present. Also, patient reporting low lumbar back pain off the midline to the left. Patient having difficulty with flexion, extension, left and right rotation. Patient continues to report difficulty with ambulation for any length of time. He rates his pain 7/10. Patient's Aayush #[id number] has been reviewed and appropriate. Lumbar MRI reveals multilevel degenerative disc. Multilevel disc bulge specifically 4 5 and 5 S1 with some canal stenosis. Also, bilateral neuroforaminal narrowing. Objective:: Patient is awake alert Godfrey x 3. No acute distress. Flex tension lumbar spine very guarded secondary to pain. Deep tendon reflexes upper and lower extremity normal. Motor strength upper and lower extremity normal. There is no gross sensory deficit. Gait is normal. Assessment:: Degenerative disc lumbar spine multiple levels. Lumbar radiculopathy. Multilevel lumbar disc bulge. Plan:: I recommend 1 lumbar epidural steroid injection at the L4-5 level. If in fact patient does not receive significant improvement I recommend surgical consultation with Dr. Kole Mahmood at [facility]. Discussed in detail with the patient. He wishes to proceed. Patient tried and failed conservative measures such as physical therapy, home exercise program, NSAIDs. [facility] Disclaimer: The information contained in this section may have been updated after the patient was seen, as this information can be updated by other users. Medical History Abnormal computerized axial tomography of chest Allergic rhinitis Bleeding nose COPD (chronic obstructive pulmonary disease) Coronary artery disease Diastolic dysfunction Dyspnea on exertion Encounter for screening for malignant neoplasm of lung in current smoker with 30 pack year history or greater HLD (hyperlipidemia) Hx of acute arthritis Hx of gastroesophageal reflux (GERD) Lung nodule Pulmonary emphysema Stopped smoking with greater than 30 pack year history Surgical History History of cardiac defibrillator placement History of colonoscopy History of heart artery stent History of permanent cardiac pacemaker placement Family History Other Cancer Social History Smoking Status: Former smoker smoking status stop date: stopped 14 years ago second hand exposure: No alcohol intake: current substance use type: denies use current occupational status: employed Travel in the last 8 weeks: None adopted: No caregiver/support person: Yes (Doreen Powell) foster care: No household members: spouse housing: house lives independently: Yes marital status: number of children: 6 number of grandchildren: 14 education level: high school service: No senior living: No current occupation: [employer] current occupational exposures/hazards: Yes caffeine: Yes physical activity: none frequency: 1-2 times per week duration: 15-30 minutes/day duane/shinto: Christianity do you feel safe at home: Yes victim of physical abuse: No victim of emotional abuse: No victim of sexual abuse: No would you like helpful sources: No
== END ==
LOC: SC.PAIN 08:25
PROVIDERS: PCP Internal Medicine; Visit Provider Nurse Anesthetist, Certified Registered
DX: M51.16 Intervertebral disc disorders with radiculopathy, lumbar region (principal); M51.26 Other intervertebral disc displacement, lumbar region
CPT/HCPCS: 99212; G0463

== ENCOUNTER 2023-11-09 10:24 | Day surgery (SDC) | payer MEDICARE, OTHER, SELFPAY ==
[2023-11-09 10:45] VITALS: BP 147/80; PULSE 68; RESP 16; O2SAT 95; BMI 27.8
[2023-11-09] MEDS: methylPREDNISolone ACETATE 80MG/ML VIAL 80 MG (11:10)
[2023-11-09] MEDS: LIDOCAINE 1% 30ML PF VIAL 30 ML (11:10)
[2023-11-09 11:11] VITALS: BP 128/79; PULSE 67; RESP 18; O2SAT 93
[2023-11-09 11:13] VITALS: BP 128/79; PULSE 68; RESP 18; O2SAT 94
[2023-11-09 11:20] VITALS: BP 139/79; PULSE 66; RESP 18; O2SAT 95
--- NOTE | 2023-11-09 12:12 | P.PCN_ITS ---
Procedure Date: 11/09/23 Time: 12:12 Anesthesiologist:: Darron Olivia MD Complications:: None Pre-procedure Diagnosis:: Degenerative disc disease of lumbar spine with lumbar radiculopathy symptoms Post-procedure Diagnosis:: Same Indications for Procedure:: This patient is a pleasant 68-year-old white male who we are treating for low back pain with lumbar radiculopathy symptoms. He has increasing pain down his left leg. Will do a lumbar epidural steroid injection under fluoroscopy to see if this helps with his pain symptoms. Procedure Details:: Informed consent was obtained and the risk and benefits of the procedure was explained to the patient. The patient was taken to the procedure room. The patient was placed prone on the procedure table. The patient was prepped and draped in sterile fashion. C-arm fluoroscopy was used to view the lumbar spine. Skin and subcutaneous tissues were anesthetized using lidocaine. I placed an 18-gauge epidural needle and advanced into the L4-L5 interspace using fluoroscopic guidance and [id number] to air. After confirmation of needle placement in the epidural space with dye I injected 2 mL of lidocaine 1.5% with Depo-Medrol 80 mg. Patient tolerated the procedure well with no com plications. Plan and Disposition:: Will follow-up with him in 2 weeks. Will reevaluate symptoms at that time.
== END 2023-11-09 11:20 | disposition home or self-care (01) ==
LOC: SC.PAINP 10:25
PROVIDERS: PCP Internal Medicine; Visit Provider Anesthesiology
DX: M51.16 Intervertebral disc disorders with radiculopathy, lumbar region (principal)
CPT/HCPCS: 62323; J1040

== ENCOUNTER → 2023-11-19 09:09 | Outpatient (POV) | payer MEDICARE, OTHER, SELFPAY ==
--- NOTE | 2023-11-19 09:29 | EXP.PAIN.SOA ---
[facility] Pain Management SOAP Note Subjective:: Patient is a pleasant 68-year-old male who presents today for follow-up of lumbar epidural steroid injection L4-L5 on 11/09/2023. We are currently treating the patient for degenerative disc disease of lumbar spine with lumbar radiculopathy symptoms. Today he rates his pain a 2 out of 10. Patient denies any new trauma or injury. Patient does state that he has had at least 75 to 80% relief following this injection. He states he has been able to increase his activity with decreased pain symptoms and feels overall more functional on a day-to-day basis. Patient does state the pain is much more manageable. Patient states he will occasionally still have pain around his left hip and some into his left thigh however it is manageable. Patient has been prescribed compounded cream and states he does use this with some improvement. Patient does state that he has overall stiffness when he goes to get up in the mornings and that it may be related to cold weather as well. His Aayush has been reviewed and is appropriate. Review of Systems: General: No recent weight changes, no fever, no sleep disturbances Respiratory: No cough, no shortness of air, no recurring pulmonary infections Cardiovascular/peripheral vascular: No chest pain, no palpitations, no edema, no shortness of breath Gastrointestinal: No new onset incontinence, normal bowel movements reported Genitourinary: No new onset incontinence Musculoskeletal: Low back pain Psychiatric: [Normal mood/affect] Neurological: [Denies weakness in extremities], [denies balance issues] Objective:: Physical Exam: General: Alert and oriented x3, no acute distress, pleasant and cooperative Lungs: Respirations even and unlabored, symmetrical chest expansion Eyes: PERRL Musculoskeletal: Flexion and extension of lumbar [spine] somewhat guarded secondary to pain, [antalgic gait noted] Neurological: Speech clear, no gross sensory deficit Assessment:: Degenerative disc disease of lumbar spine with lumbar radiculopathy symptoms, left leg pain Plan:: Patient is doing well following his lumbar epidural and does not require any additional injection therapy at this time. Patient will return to clinic in 1 month for reevaluation of symptoms and plan of care. Patient has been instructed to contact the clinic with any concerns before the next appointment. Dr. Olivia has reviewed this note and agrees with this plan of care. This note was dictated using voice recognition software and make contain errors or omissions. [facility] Disclaimer: The information contained in this section may have been updated after the patient was seen, as this information can be updated by other users. Medical History Abnormal computerized axial tomography of chest Allergic rhinitis Bleeding nose COPD (chronic obstructive pulmonary disease) Coronary artery disease Diastolic dysfunction Dyspnea on exertion Encounter for screening for malignant neoplasm of lung in current smoker with 30 pack year history or greater HLD (hyperlipidemia) Hx of acute arthritis Hx of gastroesophageal reflux (GERD) Lung nodule Pulmonary emphysema Stopped smoking with greater than 30 pack year history Surgical History History of cardiac defibrillator placement History of colonoscopy History of heart artery stent History of permanent cardiac pacemaker placement Family History Other Cancer Social History Smoking Status: Former smoker smoking status stop date: stopped 14 years ago second hand exposure: No alcohol intake: current substance use type: denies use current occupational status: employed Travel in the last 8 weeks: None adopted: No caregiver/support person: Yes (Doreen Powell) foster care: No household members: spouse housing: house lives independently: Yes marital status: number of children: 6 number of grandchildren: 14 education level: high school service: No [place] [facility]: No current occupation: [employer] current occupational exposures/hazards: Yes caffeine: Yes physical activity: none frequency: 1-2 times per week duration: 15-30 minutes/day duane/congregational: Episcopalian do you feel safe at home: Yes victim of physical abuse: No victim of emotional abuse: No victim of sexual abuse: No would you like helpful sources: No
[2023-11-19 09:35] VITALS: BP 138/84; PULSE 91; RESP 18; O2SAT 96; BMI 27.8
== END ==
LOC: SC.PAIN 09:09
PROVIDERS: PCP Internal Medicine; Visit Provider Nurse Practitioner Family
DX: M51.16 Intervertebral disc disorders with radiculopathy, lumbar region (principal); M79.605 Pain in left leg
CPT/HCPCS: 99212; G0463

== ENCOUNTER 2023-11-28 14:41 | Outpatient (CLI) | payer MEDICARE, OTHER, SELFPAY | END 2023-11-28 23:59 | LOC: LAB.DROPOF 14:42 | PROVIDERS: PCP Internal Medicine; Visit Provider Internal Medicine | DX: Z12.5 Encounter for screening for malignant neoplasm of prostate (principal) | CPT/HCPCS: G0103 ==

== ENCOUNTER 2023-12-10 10:41 | Observation (INO) | payer MEDICARE, OTHER, SELFPAY ==
[2023-12-10] VITALS (12 sets, daily range): BP systolic 123–170; BP diastolic 68–111; PULSE 61–98; RESP 15–22; TEMP 36.4–36.7; O2SAT 96–98; BMI 27.0; BMI 27.4
--- NOTE | 2023-12-10 11:04 | HMH.EDGENADL ---
Discharge Plan Disposition Patient Disposition: Admitted Condition: Fair Prescriptions Prescriptions: New ibuprofen [IBU] 800 mg tablet 800 mg PO Q6H PRN (Reason: pain) 4 Days Qty: 16 0RF lidocaine 5 % adhesive patch,medicated 1 patch topical DAILY 4 Days Qty: 15 0RF Rx Instructions: leave on most painful area for up to 12 hrs acetaminophen [Tylenol] 325 mg tablet 1,000 mg PO Q6H PRN (Reason: fever or pain) 4 Days Qty: 16 0RF No Action valacyclovir [Valtrex] 500 mg tablet 500 mg PO DAILY Entresto 24-26 mg tablet 1 tab PO BID 30 Days Qty: 60 5RF albuterol sulfate 90 mcg/actuation HFA aerosol inhaler 2 inh inhalation QID PRN (Reason: shortness of breath or wheezing) 90 Days Qty: 8.5 2RF atorvastatin 40 mg tablet See Rx Instructions .ROUTE .COMPLEX Qty: 90 4RF Dose Instruction: TAKE 1 TABLET BY MOUTH AT BEDTIME EVERY NIGHT Rx Instructions: TAKE 1 TABLET BY MOUTH AT BEDTIME EVERY NIGHT famotidine [Pepcid] 20 mg Tablet 20 mg PO BID methocarbamol 750 mg tablet 750 mg PO BID Qty: 28 0RF tamsulosin 0.4 mg capsule 0.4 mg PO HS Patient Comments: TAKE 1 CAPSULE BY MOUTH ONCE DAILY AT BEDTIME aspirin 81 mg Tablet,Delayed Release (Dr/Ec) 81 mg PO DAILY 30 Days Qty: 30 0RF Referrals Follow up/Referrals: Eddi Gomez MD [Primary Care Provider] - See instructions Activity Restrictions/Add. Instructions Additional Instructions/Restrictions: You have been evaluated in the ED for your complaints. You may follow-up with your PCP in the next 3 to 5 days. Please return to ED for any new or worsening symptoms. As discussed, please keep your appointment with pain management on tomorrow. I have also spoken to PT/OT and they will see you in clinic on tomorrow at 3 PM. I do recommend that you take Tylenol and ibuprofen as needed for pain. I recommend 1000 mg of Tylenol every 5-6 hours however do not exceed 4000 mg in 1 day. Also recommend 800 mg of ibuprofen every 5-6 hours. I have also written for prescriptions for lidocaine patches and oxycodone to further assess. Clinical Impressions Clinical Impression: Left-sided low back pain with sciatica Discharge ED Provider: Josh Reynolds Adult HPI General Chief complaint: PAIN Stated complaint: severe back pain Time Seen by Provider: 12/10/23 10:57 Mode of Arrival: Wheelchair Source of Information: Patient Limitations: No Limitations Description of Symptoms (Recalled from ER Triage Doc. by RN): pt presents to ED for lower back/hip pain. pain located on left side of back and left hip. pt does have hx of sciatic pain. pt does see dr nirmal reid with pain management and pt has follow up appoitment this sunday. pt reports pain intially began on sunday but has gotten worse since sunday. History of Present Illness HPI narrative: 68-year-old male with past medical history significant for sciatica, HLD, GERD, emphysema, SVT, presents today for evaluation concerning left lower back pain radiating down to his left lower extremity, worsening since last Sunday. He denies any associated injuries. States that he has been taking Tylenol 3 with codeine with minimal relief. He had his last steroid injection for sciatica 1 month ago. Denies any numbness, tingling, fevers, chills, chest pain, shortness of breath or any other associated symptoms at this time. No further complaints. Related Data Home Medications Medication Instructions Recorded Confirmed famotidine 20 mg tablet (Pepcid) 20 mg PO BID Reflux/Acid reflux 11/16/22 11/19/23 valacyclovir 500 mg tablet 500 mg PO DAILY Infection 01/10/23 11/19/23 (Valtrex) tamsulosin 0.4 mg capsule 0.4 mg PO HS prostate 01/22/23 11/19/23 Previous Rx's Medication Instructions Recorded aspirin 81 mg tablet,delayed 81 mg PO DAILY 30 days #30 tabs 01/23/23 release sacubitril 24 mg-valsartan 26 mg 1 tab PO BID 30 days #60 tabs 02/20/23 tablet (Entresto) albuterol sulfate 90 mcg/actuation 2 inh inhalation QID PRN shortness 07/03/23 aerosol inhaler of breath or wheezing 90 days #8.5 grams atorvastatin 40 mg tablet See Rx Instructions .Route 08/27/23 .COMPLEX #90 tabs methocarbamol 750 mg tablet 750 mg PO BID #28 tabs 10/10/23 acetaminophen 325 mg tablet 1,000 mg PO Q6H PRN fever or pain 12/10/23 (Tylenol) 4 days #16 tabs ibuprofen 800 mg tablet (IBU) 800 mg PO Q6H PRN pain 4 days #16 12/10/23 tabs lidocaine 5 % topical patch 1 patch topical DAILY 4 days #15 ea 12/10/23 Allergies Allergy/AdvReac Type Severity Reaction Status Date / Time pseudoephedrine AdvReac Severe Palpitation Verified 11/09/23 10:46 s codeine AdvReac Mild Vomiting Verified 11/09/23 10:46 PFSH PFS Disclaimer: The information contained in this section may have been updated after the patient was seen, as this information can be updated by other users. Medical History Abnormal computerized axial tomography of chest Allergic rhinitis Bleeding nose COPD (chronic obstructive pulmonary disease) Coronary artery disease Diastolic dysfunction Dyspnea on exertion Encounter for screening for malignant neoplasm of lung in current smoker with 30 pack year history or greater HLD (hyperlipidemia) Hx of acute arthritis Hx of gastroesophageal reflux (GERD) Lung nodule Pulmonary emphysema Stopped smoking with greater than 30 pack year history Surgical History History of cardiac defibrillator placement History of colonoscopy History of heart artery stent History of permanent cardiac pacemaker placement Family History Other Cancer Social History Smoking Status: Former smoker smoking status stop date: stopped 14 years ago second hand exposure: No alcohol intake: current substance use type: denies use current occupational status: retired Travel in the last 8 weeks: None adopted: No caregiver/support person: Yes (Doreen Powell) foster care: No household members: spouse housing: house lives independently: Yes marital status: number of children: 6 number of grandchildren: 14 education level: high school service: No retirement: No current occupation: [employer] current occupational exposures/hazards: Yes caffeine: Yes physical activity: none frequency: 1-2 times per week duration: 15-30 minutes/day duane/jew: Scientologist do you feel safe at home: Yes victim of physical abuse: No victim of emotional abuse: No victim of sexual abuse: No would you like helpful sources: No ROS Obtained: Yes All systems reviewed & no additional complaints except as documented Physical Exam General General appearance: alert and in no apparent distress Head Head exam: atraumatic and normocephalic Eye Eye exam: Present normal appearance, PERRL and EOMI ENT ENT exam: Present normal oropharynx and mucous membranes moist Neck Neck exam: Present full ROM; Absent meningismus Respiratory Respiratory exam: Absent respiratory distress, wheezes, stridor or accessory muscle use Cardiovascular Cardiovascular exam: Present normal rhythm Abdominal Exam Abdominal exam: Present soft; Absent distention, tenderness, guarding, rebound or rigidity Back Exam Back exam: Present normal inspection, full ROM, tenderness (Tenderness to palpation along the lower left aspect of the lumbar spine. No midline tenderness palpation of the C/T/L-spine. No external signs of trauma. Positive straight leg test raise.) and straight leg raise (L) Neurological Exam Neurological exam: Present alert, oriented X3 and CN II-XII intact; Absent motor sensory deficit Psychiatric Psychiatric exam: Present normal affect and normal mood Skin Skin exam: Present warm and dry Medical Decision Making Medical Records Medical records reviewed: Yes I reviewed the patient's medical records. Aayush Inquiry Pt receiving controlled substance: No Aayush was queried for this patient: No Vital Signs: 12/10/23 10:42 12/10/23 13:00 12/10/23 13:30 Temperature 98.1 F Temperature Source Oral Pulse Rate 66 Pulse Rate [Left Radial] 76 Respiratory Rate 15 Blood Pressure 170/111 H 149/87 H Blood Pressure [Right Arm] 123/82 Blood Pressure Mean 123 110 Blood Pressure Mean [Right Arm] 95 02 Sat by Pulse Oximetry 98 98 Oxygen Delivery Method Room Air 12/10/23 14:00 12/10/23 15:55 Temperature Temperature Source Pulse Rate 85 Pulse Rate [Left Radial] Respiratory Rate 18 Blood Pressure 147/82 H 149/98 H Blood Pressure [Right Arm] Blood Pressure Mean 108 115 Blood Pressure Mean [Right Arm] 02 Sat by Pulse Oximetry 98 Oxygen Delivery Method Lab Data Lab Results 12/10/23 11:30: WBC 6.4, RBC 5.69, Hgb 17.8, Hct 49.9, MCV 87.8, MCH 31.3 H, MCHC 35.6 H, RDW 13.6, Plt Count 192, MPV 8.7, Neut % (Auto) 62.5, Lymph % (Auto) 26.4, [place] % (Auto) 8.0, Eos % (Auto) 2.4, Baso % (Auto) 0.8, Neut # (Auto) 4.0, Lymph # (Auto) 1.7, [place] # (Auto) 0.5, Eos # (Auto) 0.2, Baso # (Auto) 0.1 12/10/23 11:30 Orders (Tests/Meds): ED MEDICATIONS Discontinued Medications Generic Name Dose Route Start Last Admin Trade Name Elkin PRN Reason Stop Dose Admin Cyclobenzaprine HCl 10 mg 12/10/23 11:02 12/10/23 11:22 Cyclobenzaprine 10mg Tablet PO 12/10/23 11:03 10 mg ONCE ONE Administration Hydromorphone HCl 1 mg 12/10/23 12:23 12/10/23 12:46 Hydromorphone 2mg/Ml Syringe IV 12/10/23 12:24 1 mg ONCE ONE Administration Hydromorphone HCl 1 mg 12/10/23 14:40 12/10/23 14:47 Hydromorphone 2mg/Ml Syringe IV 12/10/23 14:41 1 mg ONCE ONE Administration Lactated Ringer's 1,000 mls @ 999 mls/hr 12/10/23 12:27 12/10/23 12:46 Lactated Ringer's 1000 Ml Bag IV 12/10/23 13:27 999 mls/hr .Q1H1M ONE Administration Ibuprofen 800 mg 12/10/23 11:02 12/10/23 11:22 Ibuprofen 400 Mg Tablet PO 12/10/23 11:03 800 mg ONCE ONE Administration Lidocaine 1 each 12/10/23 11:02 12/10/23 11:21 Lidocaine 5% Transdermal Patch TP 12/10/23 11:03 1 each ONCE ONE Administration Methylprednisolone Sodium Succinate 125 mg 12/10/23 12:31 12/10/23 12:46 Methylprednisolone Sod Succ 125mg Vial IV 12/10/23 12:32 125 mg ONCE ONE Administration Oxycodone HCl 5 mg 12/10/23 11:04 12/10/23 11:22 Oxycodone 5mg Immediate Release Tablet PO 12/10/23 11:05 5 mg ONCE ONE Administration ORDERS Category Date Time Status CT hip LT wo con Stat Cat Scan 12/10/23 14:[address] lumbar spine wo con Stat Cat Scan 12/10/23 14:20 Completed Hip XR left minimum 2 views [XR hip LT 2-3V w/pelvis] Exams 12/10/23 12:23 Completed Stat Basic Metabolic Panel Stat Lab 12/10/23 11:30 Received Complete Blood Count Auto Diff Stat Lab 12/10/23 11:30 Completed Medical Decision Narrative: 68-year-old male with past medical history significant for sciatica, HLD, GERD, emphysema, SVT, presents today for evaluation concerning left lower back pain radiating down to his left lower extremity, worsening since last Sunday. States that his pain today feels like his sciatic pain however is uncontrolled. He denies any associated injuries. States that he has been taking Tylenol 3 with codeine with minimal relief. On assessment, the patient was hemodynamically stable and in no acute distress. Afebrile. Physical exam was with tenderness to palpation along the left lower lumbar spine without external signs of trauma. There is no midline tenderness palpation of the C/T/L-spine. No step-offs appreciated. Positive straight leg test raise on the left reproducing pain. Other physical exam vitals unremarkable. Differential diagnoses include but not limited to sciatica, muscle spasm, fracture, among others. I have ordered for ibuprofen, Flexeril, lidocaine patch and Oxy 5 to assist with patient's pain. On reassessment his pain was not improved and so I did order for IV Solu-Medrol and Dilaudid and attempts to ease his pain. Also ordered for a fluid bolus. On reassessment his pain was again unimproved and he was unable to ambulate. I did speak to pain management and on discussion I did recommend CT imaging of the hip and lower lumbar spine to rule out any other abnormalities. I did order for CT imaging of the left hip and lumbar spine and there were no acute bony abnormalities noted. On reassessment patient's pain was again unimproved and after a second dose of Dilaudid he was still unable to ambulate and had increased pain. Given the patient has received multiple pain management modalities without improvement and given that he cannot perform his ADLs, I did consult with hospital medicine and have agreed to evaluate and admit for further management. Prior to consultation with hospital medicine I did speak with pain management and PT/OT and they both were able to schedule outpatient appointments for patient on tomorrow. I discussed plan with patient and he verbalized understanding and agreement. He was admitted for further management concerning his intractable sciatic pain. Critical Care Critical Care Time Critical Care Time: No
[2023-12-10] MEDS: LIDOCAINE 5% TRANSDERMAL PATCH 1 EACH TP (11:21)
[2023-12-10] MEDS: CYCLOBENZAPRINE 10MG TABLET 10 MG PO (11:22)
[2023-12-10] MEDS: OXYCODONE 5MG IMMEDIATE RELEASE TABLET 5 MG PO (11:22)
[2023-12-10] MEDS: IBUPROFEN 400 MG TABLET 800 MG PO (11:22)
--- NOTE | 2023-12-10 12:23 | XR_ITS ---
FINAL REPORT CLINICAL HISTORY: pain pt presents to ED for lower back/hip pain. pain located on left side of back and left hip. pt does have hx of sciatic pain. FINDINGS: LEFT HIP 2 views of the left hip are obtained. There is no acute fracture or dislocation. There are mild degenerative changes. Visualized joint spaces are normally aligned. There is no acute soft tissue abnormality. IMPRESSION: No acute bony abnormality. Reviewed, Interpreted and Dictated by Sriram Schaffer III, MD Transcribed by Starr Che Authenticated and [facility]
[2023-12-10 12:42] LABS: Basophils # 0.1 K/mm3 (0-0.2); Basophils % 0.8 % (0.1-2.0); Eosinophils # 0.2 K/mm3 (0.0-0.4); Eosinophils % 2.4 % (0.1-12.0); Hematocrit 49.9 % (42.0-52.0); Hemoglobin 17.8 g/dL (14.1-18.0); Lymphocytes # 1.7 K/mm3 (0.7-4.5); Lymphocytes % 26.4 % (10-50); Mean Corpuscular HGB Conc 35.6 g/dL (31.8-35.4); Mean Corpuscular Hemoglobin 31.3 pg (27.0-31.2); Mean Corpuscular Volume 87.8 fl (80-94); Mean Platelet Volume 8.7 fl (7.4-10.4); Monocytes # 0.5 K/mm3 (0.1-1.0); Neutrophils % 62.5 % (37.0-80.0); Platelet Count 192 K/mm3 (142-424); Red Blood Count 5.69 M/mm3 (4.60-6.20); Red Cell Distribution Width 13.6 % (11.5-17.5); White Blood Count 6.4 K/mm3 (4.8-10.8)
[2023-12-10] MEDS: METHYLPREDNISOLONE SOD SUCC 125MG VIAL 125 MG IV (12:46)
[2023-12-10] MEDS: HYDROMORPHONE 2MG/ML SYRINGE 1 MG IV ×3 (12:46→16:08)
[2023-12-10] MEDS: LACTATED RINGERS 1000ML 1,000 ML 999 ML IV (12:46)
--- NOTE | 2023-12-10 14:19 | PC.NURSE ---
speaking with Amena in pain mgn
--- NOTE | 2023-12-10 14:20 | CT_ITS ---
FINAL REPORT TECHNIQUE: Axial imaging of the lumbar spine was obtained without contrast. Reformatted images were also obtained and reviewed.This study was performed with techniques to keep radiation doses as low as reasonably achievable, (ALARA). Individualized dose reduction techniques using automated exposure control or adjustment of mA and/or kV according to the patient's size were employed. CLINICAL HISTORY: sciatic pain COMPARISON: 09/25/2023 FINDINGS: There is no acute fracture. There is mild retrolisthesis of L2 on L3, stable from prior exam. There are multilevel, mild degenerative changes. The vertebra are normal height. . Facets are properly aligned. Prevertebral soft tissues unremarkable. Note is made of cholelithiasis. L1-2: Annular disc bulge with facet arthropathy and osteophytes. L2-3: Annular disc bulge with facet arthropathy and osteophytes. There is moderate right and mild left neuroforaminal narrowing. L3-4: Annular disc bulge with facet arthropathy and osteophytes. There is severe bilateral neuroforaminal narrowing. L4-5: Annular disc bulge with facet arthropathy and osteophytes. There is severe right and moderate left neuroforaminal narrowing. L5-S1: Annular disc bulge with facet arthropathy and osteophytes. There is moderate bilateral neuroforaminal narrowing. IMPRESSION: No acute bony abnormality. Degenerative changes as above, stable from prior exam. Reviewed, Interpreted and Dictated by Sriram Schaffer III, MD Transcribed by Starr Che Authenticated and [facility]
--- NOTE | 2023-12-10 14:20 | CT_ITS ---
FINAL REPORT TECHNIQUE: Thin section axial CT images with coronal and sagittal reformats were performed. This study was performed with techniques to keep radiation doses as low as reasonably achievable (ALARA). Individualized dose reduction techniques using automated exposure control or adjustment of mA and/or kV according to the patient''s size were employed. CLINICAL HISTORY: sciatic pain FINDINGS: LEFT HIP There is no acute fracture or dislocation. Visualized joint spaces are normally aligned. No significant degenerative changes are seen. There are no masses or fluid collections. There are no soft tissue abnormalities. IMPRESSION: No acute bony abnormality or significant degenerative change. Reviewed, Interpreted and Dictated by Sriram Schaffer III, MD Transcribed by Starr Che Authenticated and [facility]
--- NOTE | 2023-12-10 15:21 | PC.NURSE ---
Dr Reynolds speaking to hospitalist
--- NOTE | 2023-12-10 15:27 | PC.NURSE ---
speaking to Wiley in Physical therapy
--- NOTE | 2023-12-10 15:37 | PC.NURSE ---
attempted to walk pt with siddharth douglas rn. pt reports he was unable to bear weight with his left hip. attempted to walk pt with walker and pt reports that even with walker, he is unable to bear weight and walk at all. pt reports the pain is to intense.
--- NOTE | 2023-12-10 15:54 | PC.NURSE ---
Dr Reynlods speaking to Dr Cee
--- NOTE | 2023-12-10 15:59 | PC.NURSE ---
spoke with HS about admission
--- NOTE | 2023-12-10 15:59 | EXP.HP ---
History of Present Illness *Admission Date: 12/10/23 *Reason for visit:: back pian, radiates to groin *History of present illness: Mr. Powell is a 68-year-old male with history of degenerative disc disease, heart failure with reduced ejection fraction, pacemaker dependent, COPD, who presented for worsening left lower back pain radiating to his left groin and lower extremity. Symptoms have progressed over the past 2 to 3 days. He has been essentially supine for the past 2 days due to pain. Not responding to Tylenol 3. Has had steroid injections with pain management, most recently 1 month ago. Denies any numbness or tingling. No urinary incontinence or retention. No fever or chills. No nausea or vomiting. Workup in the ER fairly unremarkable except for significant findings on back imaging. Attempted to ambulate patient after pain treatment were unsuccessful. Medicine was consulted for further management and treatment of his pain along with admission for observation and eval by PT and pain management. Medicine agreed to admit. On evaluation, patient is supine on the stretcher. States the only position is comfortable. In no other acute distress. States pain is in his groin as well, radiates to his left testicle. Positive leg raise on exam. at bedside, updated of plan. [facility] Disclaimer: The information contained in this section may have been updated after the patient was seen, as this information can be updated by other users. Medical History Abnormal computerized axial tomography of chest Allergic rhinitis Bleeding nose COPD (chronic obstructive pulmonary disease) Coronary artery disease Diastolic dysfunction Dyspnea on exertion Encounter for screening for malignant neoplasm of lung in current smoker with 30 pack year history or greater HLD (hyperlipidemia) Hx of acute arthritis Hx of gastroesophageal reflux (GERD) Lung nodule Pulmonary emphysema Stopped smoking with greater than 30 pack year history Surgical History History of cardiac defibrillator placement History of colonoscopy History of heart artery stent History of permanent cardiac pacemaker placement Family History Cancer Social History Smoking Status: Former smoker smoking status stop date: stopped 14 years ago second hand exposure: No alcohol intake: current substance use type: denies use current occupational status: retired Travel in the last 8 weeks: None adopted: No caregiver/support person: Yes (Doreendallin Powell) foster care: No household members: spouse housing: house lives independently: Yes marital status: number of children: 6 number of grandchildren: 14 education level: high school service: No usp: No current occupation: [employer] current occupational exposures/hazards: Yes caffeine: Yes physical activity: none frequency: 1-2 times per week duration: 15-30 minutes/day duane/hindu: Islam do you feel safe at home: Yes victim of physical abuse: No victim of emotional abuse: No victim of sexual abuse: No would you like helpful sources: No Review of Systems Review of Systems Review of systems (narrative): 14 point review of systems performed, pertinent positives and negatives as per HPI Meds Home Medications and Allergies Home Medications Medication Instructions Recorded Confirmed Type famotidine 20 mg tablet (Pepcid) 20 mg PO BID Reflux/Acid reflux 11/16/22 11/19/23 History valacyclovir 500 mg tablet 500 mg PO DAILY Infection 01/10/23 11/19/23 History (Valtrex) tamsulosin 0.4 mg capsule 0.4 mg PO HS prostate 01/22/23 11/19/23 History aspirin 81 mg tablet,delayed 81 mg PO DAILY 30 days #30 tabs 01/23/23 11/19/23 Rx release sacubitril 24 mg-valsartan 26 mg 1 tab PO BID 30 days #60 tabs 02/20/23 11/19/23 Rx tablet (Entresto) albuterol sulfate 90 mcg/actuation 2 inh inhalation QID PRN shortness 07/03/23 11/19/23 Rx aerosol inhaler of breath or wheezing 90 days #8.5 grams atorvastatin 40 mg tablet See Rx Instructions .Route 08/27/23 11/19/23 Rx .COMPLEX #90 tabs methocarbamol 750 mg tablet 750 mg PO BID #28 tabs 10/10/23 11/19/23 Rx acetaminophen 325 mg tablet 1,000 mg PO Q6H PRN fever or pain 12/10/23 Rx (Tylenol) 4 days #16 tabs ibuprofen 800 mg tablet (IBU) 800 mg PO Q6H PRN pain 4 days #16 12/10/23 Rx tabs lidocaine 5 % topical patch 1 patch topical DAILY 4 days #15 ea 12/10/23 Rx New Prescriptions to Start Prescriptions: acetaminophen [Tylenol] Reynolds,Josh ibuprofen [IBU] Reynolds,[place] lidocaine Reynolds,[place] Allergies Allergy/AdvReac Type Severity Reaction Status Date / Time pseudoephedrine AdvReac Severe Palpitation Verified 11/09/23 10:46 s codeine AdvReac Mild Vomiting Verified 11/09/23 10:46 Exam Data for Last 24 hours Vital signs and Labs for Last 24 Hours: Temp Pulse Resp BP Pulse Ox O2 Del Method 98.1 F 85 18 149/98 H 98 Room Air 12/10/23 10:42 12/10/23 15:55 12/10/23 15:55 12/10/23 15:55 12/10/23 15:55 12/10/23 10:42 Laboratory Results - last 24 hr 12/10/23 11:30: WBC 6.4, RBC 5.69, Hgb 17.8, Hct 49.9, MCV 87.8, MCH 31.3 H, MCHC 35.6 H, RDW 13.6, Plt Count 192, MPV 8.7, Neut % (Auto) 62.5, Lymph % (Auto) 26.4, [place] % (Auto) 8.0, Eos % (Auto) 2.4, Baso % (Auto) 0.8, Neut # (Auto) 4.0, Lymph # (Auto) 1.7, [place] # (Auto) 0.5, Eos # (Auto) 0.2, Baso # (Auto) 0.1 I & O for Last 24 hours: Intake & Output 12/07/23 12/08/23 12/09/23 12/10/23 23:59 23:59 23:59 23:59 Weight 92.986 kg Constitutional Constitutional: no acute distress, average body habitus and cooperative *Routine HEENT Exam Head: Present normocephalic Eye: Present EOMI and PERRL ENT: Present mucous membranes moist *Routine Neck Exam Neck: Present supple; Absent lymphadenopathy *Routine Respiratory Exam Respiratory: Present CTA bilaterally; Absent rhonchi, wheezes or crackles *Routine Cardiovascular Exam Cardiovascular: Present RRR *Routine Abdominal Exam Abdominal: Present soft and normoactive bowel sounds; Absent tenderness *Routine Rectal Exam Rectal:: deferred *Routine Genitalia Exam Genitalia:: normal male Comment:: Hydrocele left side *Routine Extremities Exam Extremities: Absent cyanosis, clubbing or edema Routine Back/Spine/Pelvis Exam Comments: Positive leg raise on left side, reflex decreased left patellar compared to right. Positive Elisa left side *Routine Skin Exam Skin: Present warm; Absent rash *Routine Neurological Exam Neurological: Present alert, oriented X3, CN II-XII intact and moving all extremities; Absent sensory deficit, motor deficit, normal reflexes or altered mental status Assessment and Plan *Assessment and plan (1) Left-sided low back pain with sciatica: Status: Acute Category: Medical Code(s): M54.42 - Lumbago with sciatica, left side (2) Lumbar nerve root impingement: Status: Acute Category: Medical Code(s): M54.16 - Radiculopathy, lumbar region (3) Lumbar radiculopathy: Status: Acute Category: Medical Code(s): M54.16 - Radiculopathy, lumbar region (4) Degenerative disc disease, lumbar: Status: Acute Category: Medical Code(s): M51.36 - Other intervertebral disc degeneration, lumbar region (5) HLD (hyperlipidemia): Status: Acute Qualifiers: Hyperlipidemia type: unspecified Qualified Code(s): E78.5 - Hyperlipidemia, unspecified Category: Medical Code(s): E78.5 - Hyperlipidemia, unspecified (6) Coronary artery disease: Status: Acute Qualifiers: Associated angina: with other forms of angina Coronary Disease-Associated Artery/Lesion type: [place] artery [place] vs. transplanted heart: [place] heart Qualified Code(s): I25.118 - Atherosclerotic heart disease of [place] coronary artery with other forms of angina pectoris Category: Medical Code(s): I25.10 - Atherosclerotic heart disease of [place] coronary artery without angina pectoris (7) COPD (chronic obstructive pulmonary disease): Status: Chronic Category: Medical Code(s): J44.9 - Chronic obstructive pulmonary disease, unspecified (8) HFrEF (heart failure with reduced ejection fraction): Status: Chronic Category: Medical Code(s): I50.20 - Unspecified systolic (congestive) heart failure Plan 68-year-old male who presents with intractable back pain radiating to his left groin. Is gotten worse over the past 2 to 3 days. Not responding to outpatient modalities. Attempt in the ER to treat and discharge home were unsuccessful with patient unable to bear weight. Discussed case with ER physician, request admission for pain control, further treatment, therapy and pain management evals. Medicine agreed to admit for observation and further treatment. Problems addressed as follows: Lumbar reticular apathy with multilevel degenerative disc disease causing intractable pain -Inability to walk. PT consult placed -Pain management consult placed. Will see patient in the morning -Reviewed patient's imaging personally, has multilevel degenerative disease with foraminal narrowing, worse on left than right. No significant arthritis in left hip. -Initiate dexamethasone 10 mg IV x 1. Schedule 30 mg Toradol every 6 hours. Received Dilaudid in the ER, will consider additional doses. Will monitor for toxicity if necessitated. Heart failure with reduced ejection fraction -Patient has defibrillator in place. Obtaining records from [place]. Unclear last echo results. States his heart function is bad since his heart attack however. -Will resume medication once reconciled BPH: Continue tamsulosin 0.4 mg nightly Prediabetes: A1c pending. Will consider sliding scale insulin with fingersticks ACHS if A1c is elevated. Initial glucose 136 on labs CBC, CMP, magnesium ordered for the morning. Kidney function and electrolytes relatively unremarkable. No abnormalities in cell lines. Full code Cardiac diet Holding anticoagulation as he may necessitate injections
[2023-12-10] MEDS: KETOROLAC 30MG/ML VIAL 30 MG IV ×2 (16:07→21:00)
[2023-12-10] MEDS: DEXAMETHASONE 4MG/ML 1ML VIAL 10 MG IV (16:07)
[2023-12-10 16:27] LABS: Chloride 107 mmol/L (98-107); Potassium 4.1 mmoL/L (3.5-5.1); Sodium 140 mmol/L (136-145)
[2023-12-10 16:30] LABS: Anion Gap 10.1 mEq/L (5-15); Blood Urea Nitrogen 13 mg/dl (9-20); Carbon Dioxide 27 mmol/L (22.0-30.0); Creatinine Clearance Estimated 93 mL/min (50-200); Estimated Glomerular Filt Rate 84 ml/min (>60); GFR (African American) 102 ML/MIN (>60)
[2023-12-10 16:31] LABS: Calcium 9.3 mg/dl (8.4-10.2); Glucose 136 mg/dl (74-100)
--- NOTE | 2023-12-10 18:27 | PC.NURSE ---
attempted to call report, pt nurse to transferring another pt. transferred to charge floor nurse, no answer at this time.
--- NOTE | 2023-12-10 18:39 | PC.NURSE ---
report given to michelle hastings from second floor
[2023-12-10] MEDS: ATORVASTATIN 40MG TABLET 40 MG PO (21:06)
[2023-12-10] MEDS: TAMSULOSIN 0.4MG CAPSULE 0.400000000000000022 MG PO (21:06)
[2023-12-10 22:51] LABS: POC Glucose,Bedside 173 (70-110)
[2023-12-11] MEDS: OXYCODONE 5MG IMMEDIATE RELEASE TABLET 5 MG PO ×5 (01:34→17:31)
[2023-12-11] MEDS: KETOROLAC 30MG/ML VIAL 30 MG IV ×4 (03:24→21:47)
[2023-12-11 04:00] VITALS: BP 141/69; PULSE 73; RESP 16; TEMP 36.2; O2SAT 97; BMI 27.4
[2023-12-11] MEDS: humaLOG 100 UNITS/ML 3ML VIAL (SSI) SQ ×2 (06:21→21:48)
[2023-12-11 06:22] LABS: POC Glucose,Bedside 173 (70-110)
--- NOTE | 2023-12-11 06:47 | PC.NURSE ---
notified provider of unrelieved pain, oxycodone ir 5 mg added to pain regimen. provider notiifed a second time of unrelieved pain, k pad ordered and applied to l leg. notified provider a 3rd time of unrelieved pain. no additional orders received
[2023-12-11 06:50] LABS: Basophils % 0.1 % (0.1-2.0); Hematocrit 48.7 % (42.0-52.0); Hemoglobin 17.1 g/dL (14.1-18.0); Lymphocytes # 1.1 K/mm3 (0.7-4.5); Lymphocytes % 8.5 % (10-50); Mean Corpuscular HGB Conc 35.1 g/dL (31.8-35.4); Mean Corpuscular Volume 88.4 fl (80-94); Mean Platelet Volume 9.2 fl (7.4-10.4); Monocytes # 0.4 K/mm3 (0.1-1.0); Monocytes % 2.9 % (1.7-9.3); Neutrophils # 11.7 K/mm3 (1.8-7.8); Neutrophils % 88.5 % (37.0-80.0); Platelet Count 202 K/mm3 (142-424); Red Blood Count 5.51 M/mm3 (4.60-6.20); Red Cell Distribution Width 13.7 % (11.5-17.5); White Blood Count 13.2 K/mm3 (4.8-10.8)
[2023-12-11 06:55] LABS: MANUAL DIFFERENTIAL MANUAL DIFFERENTIAL (MANUAL DIFF)
[2023-12-11 06:57] LABS: Chloride 108 mmol/L (98-107); Sodium 139 mmol/L (136-145)
[2023-12-11 06:58] LABS: Potassium 4.1 mmoL/L (3.5-5.1)
[2023-12-11 07:00] LABS: Alanine Aminotransferase 52 U/L (12-78); Albumin Level 4.2 g/dl (3.5-5.0); Alkaline Phosphatase 87 U/L (38-126); Anion Gap 14.1 mEq/L (5-15); Aspartate Amino Transferase 34 U/L (17-59); Bilirubin,Total 1.1 mg/dl (0.2-1.3); Blood Urea Nitrogen 21 mg/dl (9-20); Carbon Dioxide 21 mmol/L (22.0-30.0); Creatinine Clearance Estimated 94 mL/min (50-200); Estimated Glomerular Filt Rate 96 ml/min (>60); GFR (African American) 116 ML/MIN (>60)
[2023-12-11 07:01] LABS: Albumin/Globulin Ratio 1.4 (1.1-1.8); Calcium 9.4 mg/dl (8.4-10.2); Globulin 2.9 g/dL (1.3-3.2); Glucose 152 mg/dl (74-100); Total Protein,Serum 7.1 g/dl (6.3-8.2)
--- NOTE | 2023-12-11 07:11 | EXP.DC.SUM ---
General Admission date:: 12/10/23 HPI HPI HPI: Mr. Powell is a 68-year-old male with history of degenerative disc disease, heart failure with reduced ejection fraction, pacemaker dependent, COPD, who presented for worsening left lower back pain radiating to his left groin and lower extremity. Symptoms have progressed over the past 2 to 3 days. He has been essentially supine for the past 2 days due to pain. Not responding to Tylenol 3. Has had steroid injections with pain management, most recently 1 month ago. Denies any numbness or tingling. No urinary incontinence or retention. No fever or chills. No nausea or vomiting. Workup in the ER fairly unremarkable except for significant findings on back imaging. Attempted to ambulate patient after pain treatment were unsuccessful. Medicine was consulted for further management and treatment of his pain along with admission for observation and eval by PT and pain management. Medicine agreed to admit. On evaluation, patient is supine on the stretcher. States the only position is comfortable. In no other acute distress. States pain is in his groin as well, radiates to his left testicle. Positive leg raise on exam. at bedside, updated of plan. Exam Data for Last 24 hours Vital signs and Labs for Last 24 Hours: Temp Pulse Resp BP Pulse Ox O2 Del Method 97.2 F L 73 16 141/69 H 97 Room Air 12/11/23 04:00 12/11/23 04:00 12/11/23 04:00 12/11/23 04:00 12/11/23 04:00 12/11/23 05:00 Laboratory Results - last 24 hr 12/10/23 11:30: WBC 6.4, RBC 5.69, Hgb 17.8, Hct 49.9, MCV 87.8, MCH 31.3 H, MCHC 35.6 H, RDW 13.6, Plt Count 192, MPV 8.7, Neut % (Auto) 62.5, Lymph % (Auto) 26.4, [place] % (Auto) 8.0, Eos % (Auto) 2.4, Baso % (Auto) 0.8, Neut # (Auto) 4.0, Lymph # (Auto) 1.7, [place] # (Auto) 0.5, Eos # (Auto) 0.2, Baso # (Auto) 0.1, Sodium 140, Potassium 4.1, Chloride 107, Carbon Dioxide 27, Anion Gap 10.1, BUN 13, Creatinine 0.90, Estimated Creat Clear 93, Estimated GFR 84, Est GFR ( Amer) 102, Glucose 136 H, Calcium 9.3 12/10/23 12:30: Hemoglobin A1c 7.0 H 12/10/23 22:39: POC Glucose 173 H 12/11/23 05:29: WBC 13.2 H D, RBC 5.51, Hgb 17.1, Hct 48.7, MCV 88.4, MCH 31.0, MCHC 35.1, RDW 13.7, Plt Count 202, MPV 9.2, Neut % (Auto) 88.5 H, Lymph % (Auto) 8.5 L, [place] % (Auto) 2.9, Eos % (Auto) 0.0 L, Baso % (Auto) 0.1, Neut # (Auto) 11.7 H, Lymph # (Auto) 1.1, [place] # (Auto) 0.4, Eos # (Auto) 0.0, Baso # (Auto) 0.0, Sodium 139, Potassium 4.1, Chloride 108 H, Carbon Dioxide 21 L, Anion Gap 14.1, BUN 21 H D, Creatinine 0.80, Estimated Creat Clear 94, Estimated GFR 96, Est GFR ( Amer) 116, Glucose 152 H, Calcium 9.4, Magnesium 2.0, Total Bilirubin 1.1, AST 34, ALT 52, Alkaline Phosphatase 87, Total Protein 7.1, Albumin 4.2, Globulin 2.9, Albumin/Globulin Ratio 1.4 12/11/23 06:15: POC Glucose 173 H I & O for Last 24 hours: Intake & Output 12/08/23 12/09/23 12/10/23 12/11/23 23:59 23:59 23:59 23:59 Intake Total 120 / 120 Output Total 800 / 800 Balance -680 / -680 Weight 93.894 kg 93.894 kg Results Data Completed and Pending Labs on day of discharge: Labs from last 24 hours 12/11/23 12/11/23 12/10/23 06:15 05:29 22:39 WBC 13.2 H D RBC 5.51 Hgb 17.1 Hct 48.7 MCV 88.4 MCH 31.0 MCHC 35.1 RDW 13.7 Plt Count 202 MPV 9.2 Neut % (Auto) 88.5 H Lymph % (Auto) 8.5 L [place] % (Auto) 2.9 Eos % (Auto) 0.0 L Baso % (Auto) 0.1 Neut # (Auto) 11.7 H Lymph # (Auto) 1.1 [place] # (Auto) 0.4 Eos # (Auto) 0.0 Baso # (Auto) 0.0 Sodium 139 Potassium 4.1 Chloride 108 H Carbon Dioxide 21 L Anion Gap 14.1 BUN 21 H D Creatinine 0.80 Estimated Creat Clear 94 Estimated GFR 96 Est GFR ( Amer) 116 Glucose 152 H POC Glucose 173 H 173 H Hemoglobin A1c Calcium 9.4 Magnesium 2.0 Total Bilirubin 1.1 AST 34 ALT 52 Alkaline Phosphatase 87 Total Protein 7.1 Albumin 4.2 Globulin 2.9 Albumin/Globulin Ratio 1.4 12/10/23 12/10/23 12:30 11:30 WBC 6.4 RBC 5.69 Hgb 17.8 Hct 49.9 MCV 87.8 MCH 31.3 H MCHC 35.6 H RDW 13.6 Plt Count 192 MPV 8.7 Neut % (Auto) 62.5 Lymph % (Auto) 26.4 [place] % (Auto) 8.0 Eos % (Auto) 2.4 Baso % (Auto) 0.8 Neut # (Auto) 4.0 Lymph # (Auto) 1.7 [place] # (Auto) 0.5 Eos # (Auto) 0.2 Baso # (Auto) 0.1 Sodium 140 Potassium 4.1 Chloride 107 Carbon Dioxide 27 Anion Gap 10.1 BUN 13 Creatinine 0.90 Estimated Creat Clear 93 Estimated GFR 84 Est GFR ( Amer) 102 Glucose 136 H POC Glucose Hemoglobin A1c 7.0 H Calcium 9.3 Magnesium Total Bilirubin AST ALT Alkaline Phosphatase Total Protein Albumin Globulin Albumin/Globulin Ratio DS: Diagnosis Discharge Diagnosis (1) Left-sided low back pain with sciatica: Status: Acute Code(s): M54.42 - Lumbago with sciatica, left side (2) Lumbar nerve root impingement: Status: Acute Code(s): M54.16 - Radiculopathy, lumbar region (3) Lumbar radiculopathy: Status: Acute Code(s): M54.16 - Radiculopathy, lumbar region (4) Degenerative disc disease, lumbar: Status: Acute Code(s): M51.36 - Other intervertebral disc degeneration, lumbar region (5) HLD (hyperlipidemia): Status: Acute Code(s): E78.5 - Hyperlipidemia, unspecified Qualifiers: Hyperlipidemia type: unspecified Qualified Code(s): E78.5 - Hyperlipidemia, unspecified (6) Coronary artery disease: Status: Acute Code(s): I25.10 - Atherosclerotic heart disease of [place] coronary artery without angina pectoris Qualifiers: Coronary Disease-Associated Artery/Lesion type: [place] artery [place] vs. transplanted heart: [place] heart Associated angina: with other forms of angina Qualified Code(s): I25.118 - Atherosclerotic heart disease of [place] coronary artery with other forms of angina pectoris (7) COPD (chronic obstructive pulmonary disease): Status: Chronic Code(s): J44.9 - Chronic obstructive pulmonary disease, unspecified (8) HFrEF (heart failure with reduced ejection fraction): Status: Chronic Code(s): I50.20 - Unspecified systolic (congestive) heart failure Meds Home Medications and Allergies Home Medications Medication Instructions Recorded Confirmed Type famotidine 20 mg tablet (Pepcid) 20 mg PO BID Reflux/Acid reflux 11/16/22 12/10/23 History valacyclovir 500 mg tablet 500 mg PO DAILY Infection 01/10/23 12/10/23 History (Valtrex) tamsulosin 0.4 mg capsule 0.4 mg PO HS prostate 01/22/23 12/10/23 History aspirin 81 mg tablet,delayed 81 mg PO DAILY 30 days #30 tabs 01/23/23 12/10/23 Rx release sacubitril 24 mg-valsartan 26 mg 1 tab PO BID 30 days #60 tabs 02/20/23 12/10/23 Rx tablet (Entresto) albuterol sulfate 90 mcg/actuation 2 inh inhalation QID PRN shortness 07/03/23 12/10/23 Rx aerosol inhaler of breath or wheezing 90 days #8.5 grams atorvastatin 40 mg tablet See Rx Instructions .Route 08/27/23 12/10/23 Rx .COMPLEX #90 tabs methocarbamol 750 mg tablet 750 mg PO BID #28 tabs 10/10/23 12/10/23 Rx clopidogrel 75 mg tablet (Plavix) 75 mg PO DAILY 12/10/23 12/10/23 History empagliflozin 25 mg tablet 25 mg PO DAILY 12/10/23 12/10/23 History (Jardiance) New Prescriptions to Start Prescriptions: Allergies Allergy/AdvReac Type Severity Reaction Status Date / Time pseudoephedrine AdvReac Severe Palpitation Verified 12/10/23 18:37 s codeine AdvReac Mild Vomiting Verified 12/10/23 18:37 Discharge Plan Disposition Condition: Fair Follow up Plan Prescriptions/Medication Reconciliation: No Action valacyclovir [Valtrex] 500 mg tablet 500 mg PO DAILY Entresto 24-26 mg tablet 1 tab PO BID 30 Days Qty: 60 5RF albuterol sulfate 90 mcg/actuation HFA aerosol inhaler 2 inh inhalation QID PRN (Reason: shortness of breath or wheezing) 90 Days Qty: 8.5 2RF atorvastatin 40 mg tablet See Rx Instructions .ROUTE .COMPLEX Qty: 90 4RF Dose Instruction: TAKE 1 TABLET BY MOUTH AT BEDTIME EVERY NIGHT Rx Instructions: TAKE 1 TABLET BY MOUTH AT BEDTIME EVERY NIGHT famotidine [Pepcid] 20 mg Tablet 20 mg PO BID methocarbamol 750 mg tablet 750 mg PO BID Qty: 28 0RF tamsulosin 0.4 mg capsule 0.4 mg PO HS Patient Comments: TAKE 1 CAPSULE BY MOUTH ONCE DAILY AT BEDTIME aspirin 81 mg Tablet,Delayed Release (Dr/Ec) 81 mg PO DAILY 30 Days Qty: 30 0RF Jardiance 25 mg Tablet 25 mg PO DAILY clopidogrel [Plavix] 75 mg Tablet 75 mg PO DAILY Patient Discharge Instructions Patient Instructions: Low Back Pain, Exercise May Reduce Risk of Low Back Pain Providers Primary Care Provider: Eddi Gomez Admit Provider: Zion Cee Attending Provider: Zion Cee
[2023-12-11 07:57] VITALS: BP 138/75; PULSE 82; RESP 18; TEMP 36.7; O2SAT 97
[2023-12-11] MEDS: ASPIRIN EC 81MG TABLET 81 MG PO (07:59)
[2023-12-11] MEDS: CLOPIDOGREL 75MG TAB 75 MG PO (07:59)
[2023-12-11] MEDS: SACUBITRIL/VALSARTAN 24-26MG TABLET 1 EACH PO ×2 (07:59→20:19)
[2023-12-11] MEDS: FAMOTIDINE 20MG TABLET 20 MG PO ×2 (07:59→20:19)
[2023-12-11] MEDS: METHOCARBAMOL 500MG TABLET 750 MG PO ×2 (08:00→20:19)
[2023-12-11] MEDS: EMPAGLIFLOZIN 10MG TABLET 20 MG PO (08:00)
[2023-12-11 08:27] LABS: Lymphocytes % 7 % (10-50); Monocytes % 3 % (2-9); Neutrophils % 78 % (42-76); Total Cells Counted 100
[2023-12-11 08:28] LABS: Platelet Estimate Normal; RBC Morphology Normal
--- NOTE | 2023-12-11 09:49 | CT_ITS ---
FINAL REPORT TECHNIQUE: Postcontrast axial images through the abdomen and pelvis were performed. This study was performed with techniques to keep radiation doses as low as reasonably achievable, (ALARA). Individualized dose reduction techniques using automated exposure control or adjustment of mA and/or kV according to the patient's size were employed. CLINICAL HISTORY: abdominal pain COMPARISON: 01/13/2021 FINDINGS: Abdomen: There is mild scarring in the lung bases. There is mild fatty infiltration of the liver. Multiple gallstones are identified. The spleen is unremarkable. The adrenals are normal. The pancreas is unremarkable. Small cyst in the upper right kidney is noted. The aorta is normal in caliber. No free fluid or adenopathy is identified. No findings for mechanical bowel obstruction are identified. There is a small umbilical hernia containing fat. Pelvis: The appendix is normal. There is a moderate amount of retained stool throughout the colon. The urinary bladder is moderately distended. No free fluid, free air, abscess or adenopathy is identified. IMPRESSION: Fatty liver. Moderate stool burden. Reviewed, Interpreted and Dictated by Sriram Schaffer III, MD Transcribed by Germaine Hamlin Authenticated and . [facility]
[2023-12-11] MEDS: HYDROMORPHONE 2MG/ML SYRINGE 2 MG IV (09:59)
[2023-12-11] MEDS: SODIUM CHLORIDE 0.9% 10ML SYR (RAD ONLY) 10 ML IV (10:39)
[2023-12-11] MEDS: IOPAMIDOL-370 (76%);100ML BOTTLE 75 ML IV (10:39)
[2023-12-11 10:45] LABS: POC Glucose,Bedside 152 (70-110)
--- NOTE | 2023-12-11 11:37 | EXP.PAIN.SOA ---
[facility] Pain Management SOAP Note Subjective:: This patient is a pleasant 68-year-old male that was admitted yesterday for pain control from the emergency room at [facility]. I have visited him today in his room on the second floor. He seems to be doing fairly well while lying supine without movement. However, he reports walking to the bathroom increases his pain significantly in his low left lumbar area as well as down the left anterior thigh to the foot. Patient rates his pain 8/10. Patient states his pain was 10/10 upon emergency room admission yesterday. I reviewed the patient's MRI with him. He has multilevel disc disease lumbar spine. Multilevel disc bulge lumbar spine. Multilevel bilateral neuroforaminal narrowing lumbar spine. Multilevel lumbar facet arthropathy. Objective:: Patient is awake alert Taylor x 3. In no acute distress. Flexion-extension lumbar spine guarded secondary to pain. Deep tendon reflexes upper lower extremities normal. Motor strength upper and lower extremities normal. There is no gross sensory deficit. Gait is normal. Assessment:: Degenerative disc lumbar spine multilevels. Lumbar radiculopathy. Multilevel disc bulge lumbar spine. Multilevel lumbar foraminal narrowing bilaterally lumbar spine. Multilevel lumbar facet arthropathy. Plan:: I recommend a surgery consult regarding his lumbar spine pathology. Patient is open to this. We discussed it in detail. I will set this up for him. Unfortunately, patient is on Plavix daily. We are unable to help him with any sort of injection today in the lumbar spine. [facility] Disclaimer: The information contained in this section may have been updated after the patient was seen, as this information can be updated by other users. Medical History Abnormal computerized axial tomography of chest Allergic rhinitis Bleeding nose COPD (chronic obstructive pulmonary disease) COPD exacerbation Coronary artery disease DDD (degenerative disc disease) Diastolic dysfunction Dyspnea on exertion Encounter for screening for malignant neoplasm of lung in current smoker with 30 pack year history or greater Heart failure HLD (hyperlipidemia) Hx of acute arthritis Hx of gastroesophageal reflux (GERD) Lung nodule Pulmonary emphysema Sciatica Stopped smoking with greater than 30 pack year history Surgical History History of cardiac defibrillator placement History of colonoscopy History of heart artery stent History of permanent cardiac pacemaker placement Family History Cancer Social History Smoking Status: Former smoker smoking status stop date: stopped 14 years ago second hand exposure: No alcohol intake: current substance use type: denies use current occupational status: retired Travel in the last 8 weeks: None adopted: No caregiver/support person: Yes (Doreendallin Weirkins) foster care: No household members: spouse housing: house lives independently: Yes marital status: number of children: 6 number of grandchildren: 14 education level: high school service: No alf: No current occupation: [employer] current occupational exposures/hazards: Yes caffeine: Yes physical activity: none frequency: 1-2 times per week duration: 15-30 minutes/day duane/rastafari: Sabianist do you feel safe at home: Yes victim of physical abuse: No victim of emotional abuse: No victim of sexual abuse: No would you like helpful sources: No
[2023-12-11] MEDS: SODIUM PHOS/BIPHOSPHATE FLEET 133ML ENEMA 133 ML RC (12:32)
[2023-12-11 13:12] LABS: Microscopic, Urine URINE MICROSCOPIC (MICROSCOPIC)
[2023-12-11 13:14] LABS: Appearance,Urine CLEAR (Clear); Bilirubin,Urine Negative (Negative); Blood, Urine Negative (Negative); Color,Urine YELLOW (Yellow); Glucose,Urine (UA) 3+ (Negative); Ketones,Urine 1+ (Negative); Leukocyte Esterase,Urine Negative (Negative); Nitrate,Urine Negative (Negative); PH,Urine 5.5 (5.0-8.5); Protein,Urine Negative (Negative); Specific Gravity, Urine 1.025 (1.005-1.030); Urobilinogen,Urine 0.2 EU/dl (0.2)
[2023-12-11] MEDS: POLYETHYLENE GLYCOL 3350 17 GM PACKET PO ×2 (13:25→20:23)
[2023-12-11 13:37] LABS: Bacteria,Urine Trace /lpf; Squamous Epithelial Cell,Urine Occasional #/hpf (0-5)
--- NOTE | 2023-12-11 14:52 | PC.NURSE ---
Pt. aox 4, assist to restroom times one, dilaudid given once today, enema also given, f/c anchored pt had issues urinating.
[2023-12-11 15:06] VITALS: BP 154/78; PULSE 92; RESP 18; TEMP 36.7; O2SAT 98
[2023-12-11 16:07] LABS: POC Glucose,Bedside 133 (70-110)
--- NOTE | 2023-12-11 17:14 | HMH.PTEV ---
Physical Therapy Evaluation Rehab PT IP Evaluation Start: 12/10/23 17:55 Freq: ONCE Status: Active Protocol: Document 12/11/23 17:02 VERITO (Rec: 12/11/23 17:11 VERITO [id number]) Subjective/History History History Per H&P: Mr. Powell is a 68-year-old male with history of degenerative disc disease, heart failure with reduced ejection fraction, pacemaker dependent, COPD, who presented for worsening left lower back pain radiating to his left groin and lower extremity. Symptoms have progressed over the past 2 to 3 days. He has been essentially supine for the past 2 days due to pain. Not responding to Tylenol 3. Has had steroid injections with pain management, most recently 1 month ago. Denies any numbness or tingling. No urinary incontinence or retention. No fever or chills . No nausea or vomiting. Workup in the ER fairly unremarkable except for significant findings on back imaging. Attempted to ambulate patient after pain treatment were unsuccessful. Medicine was consulted for further management and treatment of his pain along with admission for observation and eval by PT and pain management. Medicine agreed to admit. Subjective Subjective PLOF per pt report: IND with ADLs and mobility without AD. No BAKARI home or in home. Pt with severe chief complaint of pain upon arrival. Rehab PT IP Eval Objective Appearance Patient Behavior Appropriate,Cooperative Patient Orientation Person,Place Difficulty following instructions none Speech Pattern Clear Ambulation Patient Able to Ambulate No Transfers Bed Transfer Ability Independent Rehab PT IP prob,goals,plan Problems Date of Evaluation: 12/11/23 PT IP Problems Transfers,Gait,Balance,Self care,Safety Rehab Potential Rehab Potential Good Equipment Needs Assistive Devices Standard Walker Plan PT Intervention Plan Bed Mobility,Transfers,Gait, Balance,Safety,Therapeutic Exercise Other Intervention Plan 1-2 times PT Plan Frequency Daily Duration LOS Discharge Goals Bed Transfer Ability Independent Sit to Stand Chair Transfer Ability Supervision/Stand by Ambulation Assistive Device Rolling Walker Ambulation Distance (feet) 10 Discharge Plan PT Discharge Plan PT with difficulty assessing pt's functional mobility d/t level of pain with movement. Pt able to sit at EOB briefly but unable to stand or remain at EOB d/t pain worsening. Pt' s primary limitation when performing mobility is severe pain. Per pt and report, he is able to walk IND when not experiencing pain. Pt okay to d/c home pending decreased pain/increased mobility. Pt to recieve PT while at [facility] to prevent functional decline. Eval Complexity Eval Charge Codes 42716 - Moderate Complexity PHYSICIAN CERTIFICATION: I certify the specified therapy services for Aaron Weirkins are required, authorized, and reviewed every 30 days.
--- NOTE | 2023-12-11 17:37 | PC.NURSE ---
Pt. reports having 5 BM's after his enema.
--- NOTE | 2023-12-11 18:05 | EXP.ACUTE.PN ---
Subjective *Date: 12/11/23 *Time: 21:20 Interval history: Significant back pain overnight. Denies shortness of breath, chest pain, nausea or vomiting. Has not had a bowel movement in over 2 days. Afebrile. Medical Exam Vital signs and Labs for Last 24 Hours: Vital Signs Temp Pulse Pulse Resp BP BP Pulse Ox 12/11/23 17:24 12/11/23 16:42 12/11/23 15:06 98.0 F 92 H 18 154/78 H 98 12/11/23 14:09 12/11/23 12:26 12/11/23 10:37 12/11/23 08:08 12/11/23 08:00 12/11/23 07:57 98.0 F 82 18 138/75 97 12/11/23 07:00 12/11/23 05:00 12/11/23 04:00 97.2 F L 73 16 141/69 H 97 12/11/23 03:00 12/11/23 01:00 12/10/23 23:00 12/10/23 21:00 12/10/23 19:00 12/10/23 19:54 12/10/23 19:00 97.6 F 61 16 162/84 H 96 12/10/23 19:02 98.0 F 78 20 138/68 O2 Del Method 12/11/23 17:24 Room Air 12/11/23 16:42 Room Air 12/11/23 15:06 Room Air 12/11/23 14:09 Room Air 12/11/23 12:26 Room Air 12/11/23 10:37 Room Air 12/11/23 08:08 Room Air 12/11/23 08:00 Room Air 12/11/23 07:57 Room Air 12/11/23 07:00 Room Air 12/11/23 05:00 Room Air 12/11/23 04:00 Room Air 12/11/23 03:00 Room Air 12/11/23 01:00 Room Air 12/10/23 23:00 Room Air 12/10/23 21:00 Room Air 12/10/23 19:00 Room Air 12/10/23 19:54 Room Air 12/10/23 19:00 12/10/23 19:02 Room Air Intake and Output 12/11/23 12/11/23 12/11/23 07:59 15:59 23:59 Intake Total 120 / 120 0 / 120 0 / 120 Output Total 0 / 1200 1200 / 1200 Balance 120 / -1080 0 / -1080 -1200 / -1080 Intake: Intake, Oral Amount 120 / 120 0 / 120 0 / 120 Output: Output, Urine Amount 0 / 1200 1200 / 1200 Other: Number of Unmeasured Voids 0 Weight 93.894 kg Patient Weight 12/11/23 23:59 Weight 93.894 kg Laboratory Results - last 24 hr 12/10/23 12:30: Hemoglobin A1c 7.0 H 12/10/23 22:39: POC Glucose 173 H 12/11/23 05:29: WBC 13.2 H D, RBC 5.51, Hgb 17.1, Hct 48.7, MCV 88.4, MCH 31.0, MCHC 35.1, RDW 13.7, Plt Count 202, MPV 9.2, Neut % (Auto) 88.5 H, Lymph % (Auto) 8.5 L, [place] % (Auto) 2.9, Eos % (Auto) 0.0 L, Baso % (Auto) 0.1, Neut # (Auto) 11.7 H, Lymph # (Auto) 1.1, [place] # (Auto) 0.4, Eos # (Auto) 0.0, Baso # (Auto) 0.0, Total Counted 100, Neutrophils % (Manual) 78 H, Band Neutrophils % 12.0 H, Lymphocytes % (Manual) 7 L, Monocytes % (Manual) 3, Platelet Estimate Normal, RBC Morphology Normal, Sodium 139, Potassium 4.1, Chloride 108 H, Carbon Dioxide 21 L, Anion Gap 14.1, BUN 21 H D, Creatinine 0.80, Estimated Creat Clear 94, Estimated GFR 96, Est GFR ( Amer) 116, Glucose 152 H, Calcium 9.4, Magnesium 2.0, Total Bilirubin 1.1, AST 34, ALT 52, Alkaline Phosphatase 87, Total Protein 7.1, Albumin 4.2, Globulin 2.9, Albumin/Globulin Ratio 1.4 12/11/23 06:15: POC Glucose 173 H 12/11/23 10:35: POC Glucose 152 H 12/11/23 10:56: Urine Color Yellow, Urine Appearance Clear, Urine pH 5.5, Ur Specific [place] 1.025, Urine Protein Negative, Urine Glucose (UA) 3+, Urine Ketones 1+, Urine Blood Negative, Urine Nitrate Negative, Urine Bilirubin Negative, Urine Urobilinogen 0.2, Ur Leukocyte Esterase Negative, Urine RBC None, Urine WBC None, Ur Squamous Epith Cells Occasional, Urine Bacteria Trace 12/11/23 16:00: POC Glucose 133 H I & O for Labs for Last 24 Hours: Intake & Output 12/08/23 12/09/23 12/10/23 12/11/23 23:59 23:59 23:59 23:59 Intake Total 120 / 120 120 / 120 Output Total 800 / 800 1200 / 1200 Balance -680 / -680 -1080 / -1080 Weight 93.894 kg 93.894 kg Constitutional: Present mild distress, average body habitus and cooperative Head: Present atraumatic and normocephalic ENT: Present normal exam Respiratory: Present normal respiratory effort; Absent prolonged expiratory phase, rhonchi, wheezes or crackles Cardiac: Present Reg Rate and Rhythm GI: Present soft, distention, tenderness (diffuse) and normal bowel sounds Extremities: Present normal inspection and full ROM Skin: Present intact; Absent erythema Neuro: Present Grossly Intact, alert, awake, oriented x 3 and moves all extremities Comment:: back TTP in left lower lumbar region. Positive leg raise on left side. Assessment and Plan *Assessment and plan (1) Left-sided low back pain with sciatica: Status: Acute Category: Medical Code(s): M54.42 - Lumbago with sciatica, left side (2) Lumbar nerve root impingement: Status: Acute Category: Medical Code(s): M54.16 - Radiculopathy, lumbar region (3) Lumbar radiculopathy: Status: Acute Category: Medical Code(s): M54.16 - Radiculopathy, lumbar region (4) Degenerative disc disease, lumbar: Status: Acute Category: Medical Code(s): M51.36 - Other intervertebral disc degeneration, lumbar region (5) HLD (hyperlipidemia): Status: Acute Qualifiers: Hyperlipidemia type: unspecified Qualified Code(s): E78.5 - Hyperlipidemia, unspecified Category: Medical Code(s): E78.5 - Hyperlipidemia, unspecified (6) Coronary artery disease: Status: Acute Qualifiers: Coronary Disease-Associated Artery/Lesion type: [place] artery [place] vs. transplanted heart: [place] heart Associated angina: with other forms of angina Qualified Code(s): I25.118 - Atherosclerotic heart disease of [place] coronary artery with other forms of angina pectoris Category: Medical Code(s): I25.10 - Atherosclerotic heart disease of [place] coronary artery without angina pectoris (7) COPD (chronic obstructive pulmonary disease): Status: Chronic Category: Medical Code(s): J44.9 - Chronic obstructive pulmonary disease, unspecified (8) HFrEF (heart failure with reduced ejection fraction): Status: Chronic Category: Medical Code(s): I50.20 - Unspecified systolic (congestive) heart failure (9) Constipation: Status: Acute Category: Medical Code(s): K59.00 - Constipation, unspecified Plan 68-year-old male who presents with intractable back pain radiating to his left groin. Is gotten worse over the past 2 to 3 days. Not responding to outpatient modalities. Attempt in the ER to treat and discharge home were unsuccessful with patient unable to bear weight. Discussed case with ER physician, request admission for pain control, further treatment, therapy and pain management evals. Medicine agreed to admit for observation and further treatment. Pain management patient today along with therapy. Pain still not under control. Difficulty bearing weight, anticipate discharge in the next day or 2. Problems addressed as follows: Lumbar reticular apathy with multilevel degenerative disc disease causing intractable pain -Inability to walk. PT consulted, recommends home 1 pain stable and allows him to walk, pain management saw patient today, discussed case, will schedule patient for epidural next week with what needs to hold Plavix. -Reviewed patient's imaging personally, has multilevel degenerative disease with foraminal narrowing, worse on left than right. No significant arthritis in left hip. -CT abdomen obtained today because of pain radiating to abdomen. Found to have significant constipation and urinary retention. Da Silva catheter placed with improvement in abdominal pain. Enema given with multiple bowel movement. Pain Strickling back radiating to left groin at this time. -Continue scheduled Toradol 30 mg IV every 6 hours, monitoring kidney function for toxicity. Continue dexamethasone 6 mg IV daily. Continue oxycodone as needed 7.5 mg every 4-6 hours for breakthrough pain. monitor for toxicity if necessitated. Heart failure with reduced ejection fraction -Patient has defibrillator in place. Obtaining records from [facility]. Unclear last echo results. States his heart function is bad since his heart attack however. -Continue statin Felicia daily, aspirin 81 [place] daily, Entresto 24/26 mg twice daily. Holding Plavix. BPH: Continue tamsulosin 0.4 mg nightly Prediabetes: A1c 7.0. initiate sliding scale insulin with fingersticks ACHS CBC, CMP, magnesium ordered for the morning. Kidney function and electrolytes relatively unremarkable. No abnormalities in cell lines. Full code Cardiac diet Holding anticoagulation as he may necessitate injections
[2023-12-11] MEDS: DEXAMETHASONE 4MG/ML 1ML VIAL 6 MG IV (18:29)
[2023-12-11] MEDS: HYDROMORPHONE 2MG/ML SYRINGE 1 MG IV (18:30)
[2023-12-11 20:00] VITALS: BP 109/47; PULSE 79; RESP 18; TEMP 36.5; O2SAT 91; O2SAT 94
[2023-12-11] MEDS: TAMSULOSIN 0.4MG CAPSULE 0.400000000000000022 MG PO (20:19)
[2023-12-11] MEDS: ATORVASTATIN 40MG TABLET 40 MG PO (20:19)
[2023-12-11 20:34] LABS: POC Glucose,Bedside 248 (70-110)
[2023-12-11] MEDS: GABAPENTIN 100MG CAPSULE 200 MG PO (21:47)
[2023-12-11] MEDS: OXYCODONE 7.5MG W/APAP 325MG TABLET 1 EACH PO (23:53)
[2023-12-12] MEDS: KETOROLAC 30MG/ML VIAL 30 MG IV ×4 (03:51→21:10)
[2023-12-12 04:00] VITALS: BMI 27.3
[2023-12-12] MEDS: POLYETHYLENE GLYCOL 3350 17 GM PACKET PO ×3 (05:10→22:33)
[2023-12-12 05:28] VITALS: BP 139/79; PULSE 67; RESP 18; TEMP 36.9; O2SAT 94
[2023-12-12 05:33] LABS: POC Glucose,Bedside 140 (70-110)
[2023-12-12 06:36] LABS: Hematocrit 47.4 % (42.0-52.0); Hemoglobin 16.6 g/dL (14.1-18.0); Lymphocytes # 1.1 K/mm3 (0.7-4.5); Lymphocytes % 7.5 % (10-50); Mean Corpuscular Hemoglobin 31.2 pg (27.0-31.2); Mean Corpuscular Volume 89.2 fl (80-94); Mean Platelet Volume 9.2 fl (7.4-10.4); Monocytes # 0.9 K/mm3 (0.1-1.0); Neutrophils # 12.9 K/mm3 (1.8-7.8); Neutrophils % 86.3 % (37.0-80.0); Platelet Count 183 K/mm3 (142-424); Red Blood Count 5.31 M/mm3 (4.60-6.20); Red Cell Distribution Width 13.6 % (11.5-17.5); White Blood Count 14.9 K/mm3 (4.8-10.8)
[2023-12-12] MEDS: OXYCODONE 7.5MG W/APAP 325MG TABLET 1 EACH PO (06:42)
[2023-12-12 06:44] LABS: Chloride 108 mmol/L (98-107); Potassium 4.3 mmoL/L (3.5-5.1); Sodium 138 mmol/L (136-145)
[2023-12-12 06:46] LABS: Alanine Aminotransferase 43 U/L (12-78); Aspartate Amino Transferase 33 U/L (17-59); Blood Urea Nitrogen 28 mg/dl (9-20); Creatinine Clearance Estimated 94 mL/min (50-200); Estimated Glomerular Filt Rate 84 ml/min (>60); GFR (African American) 102 ML/MIN (>60)
[2023-12-12 06:47] LABS: Albumin/Globulin Ratio 1.4 (1.1-1.8); Alkaline Phosphatase 87 U/L (38-126); Anion Gap 10.3 mEq/L (5-15); Bilirubin,Total 0.9 mg/dl (0.2-1.3); Calcium 9.1 mg/dl (8.4-10.2); Carbon Dioxide 24 mmol/L (22.0-30.0); Globulin 2.9 g/dL (1.3-3.2); Glucose 149 mg/dl (74-100); MANUAL DIFFERENTIAL MANUAL DIFFERENTIAL (MANUAL DIFF); Magnesium 2.2 mg/dl (1.6-2.3); Total Protein,Serum 6.9 g/dl (6.3-8.2)
[2023-12-12 08:00] VITALS: BP 139/74; PULSE 81; RESP 19; TEMP 36.7; O2SAT 96
[2023-12-12] MEDS: GABAPENTIN 100MG CAPSULE 200 MG PO ×2 (08:47→21:08)
[2023-12-12] MEDS: ASPIRIN EC 81MG TABLET 81 MG PO (08:47)
[2023-12-12] MEDS: FAMOTIDINE 20MG TABLET 20 MG PO ×2 (08:47→21:09)
[2023-12-12] MEDS: EMPAGLIFLOZIN 10MG TABLET 20 MG PO (08:47)
[2023-12-12] MEDS: METHOCARBAMOL 500MG TABLET 750 MG PO ×2 (08:47→21:09)
[2023-12-12] MEDS: DEXAMETHASONE 4MG/ML 1ML VIAL 6 MG IV (08:48)
[2023-12-12] MEDS: SACUBITRIL/VALSARTAN 24-26MG TABLET 1 EACH PO ×2 (08:48→21:09)
[2023-12-12 09:30] LABS: Lymphocytes % 4 % (10-50); Monocytes % 10 % (2-9); Neutrophils % 75 % (42-76); Total Cells Counted 100
[2023-12-12 09:32] LABS: Platelet Estimate Normal; RBC Morphology Normal
[2023-12-12] MEDS: HYDROMORPHONE 2MG/ML SYRINGE 0.5 MG IV ×5 (10:12→22:03)
[2023-12-12] MEDS: OXYCODONE 5MG IMMEDIATE RELEASE TABLET 10 MG PO ×2 (10:13→22:33)
[2023-12-12 11:07] VITALS: BMI 27.3
[2023-12-12] MEDS: LIDOCAINE 5% TRANSDERMAL PATCH 1 EACH TP (11:36)
[2023-12-12] MEDS: humaLOG 100 UNITS/ML 3ML VIAL (SSI) SQ ×2 (11:48→16:27)
--- NOTE | 2023-12-12 14:52 | PC.NURSE ---
Pt experienced episode of severe pain this morning after trying to reposition in bed. dr stratton was contacted and made adjustments to pt pain management regimen. after admin of medications pt has stated he is more comfortable. he has spent most of the day in bed. luna cath remains in place to bedside drain.
[2023-12-12 16:00] VITALS: BP 139/86; PULSE 72; RESP 18; O2SAT 96
[2023-12-12 19:27] LABS: POC Glucose,Bedside 176 (70-110)
[2023-12-12 19:27] LABS: POC Glucose,Bedside 176 (70-110)
[2023-12-12 20:00] VITALS: BP 130/75; PULSE 77; RESP 18; TEMP 36.5; O2SAT 95
[2023-12-12 20:25] LABS: POC Glucose,Bedside 145 (70-110)
[2023-12-12] MEDS: ATORVASTATIN 40MG TABLET 40 MG PO (21:09)
[2023-12-12] MEDS: TAMSULOSIN 0.4MG CAPSULE 0.400000000000000022 MG PO (21:09)
[2023-12-13] MEDS: HYDROMORPHONE 2MG/ML SYRINGE 0.5 MG IV ×3 (00:08→11:29)
[2023-12-13] MEDS: KETOROLAC 30MG/ML VIAL 30 MG IV ×2 (03:06→09:37)
[2023-12-13 04:00] VITALS: BP 117/71; PULSE 55; RESP 18; TEMP 36.4; O2SAT 96; BMI 26.9
[2023-12-13] MEDS: OXYCODONE 5MG IMMEDIATE RELEASE TABLET 10 MG PO ×2 (04:30→10:45)
--- NOTE | 2023-12-13 04:42 | PC.NURSE ---
Pt is alert and oriented x4, Pt luna remains anchored and is draining clear urine Pt has refused miralax this shit and reports BM earlier in the day. Pt has C/O pain multiple times this shift and has also had episodes of breakthrough pain requiring additional medication. Offered to reposition or apply heat for comfort pt declined. Pt glucose level was 145 at 2100 [place] was not required. Pt has rested periodically. Pt denies pain and needs at this time.
[2023-12-13 05:32] LABS: POC Glucose,Bedside 127 (70-110)
[2023-12-13 06:13] LABS: Chloride 110 mmol/L (98-107); Potassium 3.9 mmoL/L (3.5-5.1); Sodium 139 mmol/L (136-145)
[2023-12-13 06:15] LABS: Blood Urea Nitrogen 27 mg/dl (9-20); Creatinine Clearance Estimated 92 mL/min (50-200); Estimated Glomerular Filt Rate 96 ml/min (>60); GFR (African American) 116 ML/MIN (>60)
[2023-12-13 06:16] LABS: Alanine Aminotransferase 35 U/L (12-78); Alkaline Phosphatase 81 U/L (38-126); Anion Gap 7.9 mEq/L (5-15); Aspartate Amino Transferase 28 U/L (17-59); Bilirubin,Total 1.1 mg/dl (0.2-1.3); Carbon Dioxide 25 mmol/L (22.0-30.0); Glucose 135 mg/dl (74-100); Total Protein,Serum 6.7 g/dl (6.3-8.2)
[2023-12-13 06:23] LABS: Albumin Level 3.8 g/dl (3.5-5.0); Albumin/Globulin Ratio 1.3 (1.1-1.8); Globulin 2.9 g/dL (1.3-3.2)
[2023-12-13 07:57] VITALS: BP 127/69; PULSE 63; RESP 18; TEMP 36.7; O2SAT 95
--- NOTE | 2023-12-13 08:17 | P.PN_ITS ---
Subjective *Date: 12/12/23 *Time: 08:17 Interval history: Patient is a 68-year-old male who presented to hospital due to back pain difficulty ambulation. patient is seen at bedside and complains of back pain, mentions he has difficulty walking Exam Data for Last 24 hours Vital signs and Labs for Last 24 Hours: Temp Pulse Resp BP Pulse Ox O2 Del Method 98.1 F 63 18 127/69 95 Room Air 12/13/23 07:57 12/13/23 07:57 12/13/23 07:57 12/13/23 07:57 12/13/23 07:57 12/13/23 07:57 Laboratory Results - last 24 hr 12/12/23 05:33: Total Counted 100, Neutrophils % (Manual) 75, Band Neutrophils % 11.0 H, Lymphocytes % (Manual) 4 L, Monocytes % (Manual) 10 H, Platelet Estimate Normal, RBC Morphology Normal 12/12/23 11:48: POC Glucose 176 H 12/12/23 16:27: POC Glucose 176 H 12/12/23 20:17: POC Glucose 145 H 12/13/23 05:14: Sodium 139, Potassium 3.9, Chloride 110 H, Carbon Dioxide 25, Anion Gap 7.9, BUN 27 H, Creatinine 0.80, Estimated Creat Clear 92, Estimated GFR 96, Est GFR ( Amer) 116, Glucose 135 H, Calcium 9.0, Total Bilirubin 1.1, AST 28, ALT 35, Alkaline Phosphatase 81, Total Protein 6.7, Albumin 3.8, Globulin 2.9, Albumin/Globulin Ratio 1.3 12/13/23 05:24: POC Glucose 127 H I & O for Last 24 hours: Intake & Output 12/10/23 12/11/23 12/12/23 12/13/23 23:59 23:59 23:59 23:59 Intake Total 120 / 120 120 / 360 1110 / 1590 1020 / 1020 Output Total 800 / 800 1999 / 1999 900 / 900 Balance -680 / -680 -1880 / -1640 -910 / -1330 120 / 120 Weight 93.894 kg 93.894 kg 93.66 kg 92.079 kg Constitutional Constitutional: no acute distress *Routine HEENT Exam Head: Present normocephalic Eye: Present EOMI and PERRL ENT: Present mucous membranes moist *Routine Neck Exam Neck: Present supple; Absent lymphadenopathy *Routine Respiratory Exam Respiratory: Present CTA bilaterally *Routine Cardiovascular Exam Cardiovascular: Present RRR *Routine Abdominal Exam Abdominal: Present soft and normoactive bowel sounds; Absent tenderness *Routine Extremities Exam Extremities: Absent cyanosis, clubbing or edema *Routine Skin Exam Skin: Present warm; Absent rash *Routine Neurological Exam Neurological: Present alert and oriented X3 Assessment and Plan *Assessment and plan (1) Left-sided low back pain with sciatica: Status: Acute Category: Medical Code(s): M54.42 - Lumbago with sciatica, left side (2) Lumbar nerve root impingement: Status: Acute Category: Medical Code(s): M54.16 - Radiculopathy, lumbar region (3) Lumbar radiculopathy: Status: Acute Category: Medical Code(s): M54.16 - Radiculopathy, lumbar region (4) Degenerative disc disease, lumbar: Status: Acute Category: Medical Code(s): M51.36 - Other intervertebral disc degeneration, lumbar region (5) HLD (hyperlipidemia): Status: Acute Qualifiers: Hyperlipidemia type: unspecified Qualified Code(s): E78.5 - Hyperlipidemia, unspecified Category: Medical Code(s): E78.5 - Hyperlipidemia, unspecified (6) Coronary artery disease: Status: Acute Qualifiers: Coronary Disease-Associated Artery/Lesion type: [place] artery [place] vs. transplanted heart: [place] heart Associated angina: with other forms of angina Qualified Code(s): I25.118 - Atherosclerotic heart disease of [place] coronary artery with other forms of angina pectoris Category: Medical Code(s): I25.10 - Atherosclerotic heart disease of [place] coronary artery without angina pectoris (7) COPD (chronic obstructive pulmonary disease): Status: Chronic Category: Medical Code(s): J44.9 - Chronic obstructive pulmonary disease, unspecified (8) HFrEF (heart failure with reduced ejection fraction): Status: Chronic Category: Medical Code(s): I50.20 - Unspecified systolic (congestive) heart failure (9) Constipation: Status: Acute Category: Medical Code(s): K59.00 - Constipation, unspecified Plan Patient is a 68-year-old male who presented to hospital due to back pain difficulty ambulation. Acute on chronic chronic lower back pain Lumbar radiculopathy Difficulty ambulation PT OT was consulted-recommended home with follow-up with pain management as outpatient Pain management was consulted, they recommended epidural injection as outpatient Pain control Increase mobility Constipation Laxatives ordered Patient is status post an MA as well Monitor and replace electrolytes BPH Continue Flomax DVT prophylaxis- heparin
[2023-12-13] MEDS: EMPAGLIFLOZIN 10MG TABLET 20 MG PO (08:39)
[2023-12-13] MEDS: ASPIRIN EC 81MG TABLET 81 MG PO (08:39)
[2023-12-13] MEDS: FAMOTIDINE 20MG TABLET 20 MG PO (08:39)
[2023-12-13] MEDS: METHOCARBAMOL 500MG TABLET 750 MG PO (08:40)
[2023-12-13] MEDS: SACUBITRIL/VALSARTAN 24-26MG TABLET 1 EACH PO (08:40)
[2023-12-13] MEDS: GABAPENTIN 100MG CAPSULE 200 MG PO (08:40)
[2023-12-13] MEDS: DEXAMETHASONE 4MG/ML 1ML VIAL 6 MG IV (09:37)
[2023-12-13] MEDS: LIDOCAINE 5% TRANSDERMAL PATCH 1 EACH TP (09:37)
--- NOTE | 2023-12-13 09:44 | SW/DCPLANNER ---
I spoke w/ patient and his this AM regarding plans at time of discharge. Patient stated that he is unsure if he will discharge home, receive injection or transfer for surgery. Patient stated that if he discharges home he does not have any needs aside from will need an ambulance arranged for transportation home. Patient's was in the room at the time of our conversation. Patient and also stated that they do not need any DME and are not interested in placement or home health services at this time. I will continue to follow up w/ patient until medically stable for discharge.
--- NOTE | 2023-12-13 10:51 | P.DS_ITS ---
General Admission date:: 12/10/23 Discharge date: 12/13/23 HPI HPI HPI: Mr. Powell is a 68-year-old male with history of degenerative disc disease, heart failure with reduced ejection fraction, pacemaker dependent, COPD, who presented for worsening left lower back pain radiating to his left groin and lower extremity. Symptoms have progressed over the past 2 to 3 days. He has been essentially supine for the past 2 days due to pain. Not responding to Tylenol 3. Has had steroid injections with pain management, most recently 1 month ago. Denies any numbness or tingling. No urinary incontinence or retent ion. No fever or chills. No nausea or vomiting. Workup in the ER fairly unremarkable except for significant findings on back imaging. Attempted to ambulate patient after pain treatment were unsuccessful. Medicine was consulted for further management and treatment of his pain along with admission for observation and eval by PT and pain management. Medicine agreed to admit. Hospital Course Hospital Course Hospital Course: Patient was seen and evaluated at the bedside on the day of discharge. Patient wishes to be discharged. All patient questions were answered and patient was given time to ask questions. Patient was discharged in stable condition. Patient understands that she can return to ER in case of any sudden changes in health. Total time spent on DC - 38 mins Patient is a 68-year-old male who presented to hospital due to back pain difficulty ambulation. Acute on chronic chronic lower back pain - improving but still significant, patient and wishes to go home, they have already apointment setuo with pain management and orthopedics as OP, patient and agreed with the plan for discharge Lumbar radiculopathy Difficulty ambulation PT OT was consulted-recommended home with follow-up with pain management as outpatient Pain management was consulted, they recommended epidural injection as outpatient Pain control Increase mobility Constipation - improved Laxatives ordered Monitor and replace electrolytes BPH Continue Flomax DVT prophylaxis- heparin Exam Data for Last 24 hours Vital signs and Labs for Last 24 Hours: Temp Pulse Resp BP Pulse Ox O2 Del Method 98.1 F 63 18 127/69 95 Room Air 12/13/23 07:57 12/13/23 07:57 12/13/23 07:57 12/13/23 07:57 12/13/23 07:57 12/13/23 09:00 Laboratory Results - last 24 hr 12/12/23 11:48: POC Glucose 176 H 12/12/23 16:27: POC Glucose 176 H 12/12/23 20:17: POC Glucose 145 H 12/13/23 05:14: Sodium 139, Potassium 3.9, Chloride 110 H, Carbon Dioxide 25, Anion Gap 7.9, BUN 27 H, Creatinine 0.80, Estimated Creat Clear 92, Estimated GFR 96, Est GFR ( Amer) 116, Glucose 135 H, Calcium 9.0, Total Bilirubin 1.1, AST 28, ALT 35, Alkaline Phosphatase 81, Total Protein 6.7, Albumin 3.8, Globulin 2.9, Albumin/Globulin Ratio 1.3 12/13/23 05:24: POC Glucose 127 H I & O for Last 24 hours: Intake & Output 12/10/23 12/11/23 12/12/23 12/13/23 23:59 23:59 23:59 23:59 Intake Total 120 / 120 120 / 360 1110 / 1590 1020 / 1020 Output Total 800 / 800 1999 / 1999 2019 / 0 1700 / 1700 Balance -680 / -680 -1880 / -1640 -910 / -1330 -680 / -680 Weight 93.894 kg 93.894 kg 93.66 kg 92.079 kg Constitutional Constitutional: no acute distress *Routine HEENT Exam Head: Present normocephalic Eye: Present EOMI and PERRL ENT: Present mucous membranes moist *Routine Neck Exam Neck: Present supple; Absent lymphadenopathy *Routine Respiratory Exam Respiratory: Present CTA bilaterally *Routine Cardiovascular Exam Cardiovascular: Present RRR *Routine Abdominal Exam Abdominal: Present soft and normoactive bowel sounds; Absent tenderness *Routine Extremities Exam Extremities: Absent cyanosis, clubbing or edema Comments: decreased ROM on LEft leg due to pain *Routine Skin Exam Skin: Present warm; Absent rash *Routine Neurological Exam Neurological: Present alert and oriented X3 Results Data Completed and Pending Labs on day of discharge: Labs from last 24 hours 12/13/23 12/13/23 12/12/23 05:24 05:14 20:17 Sodium 139 Potassium 3.9 Chloride 110 H Carbon Dioxide 25 Anion Gap 7.9 BUN 27 H Creatinine 0.80 Estimated Creat Clear 92 Estimated GFR 96 Est GFR ( Amer) 116 Glucose 135 H POC Glucose 127 H 145 H Calcium 9.0 Total Bilirubin 1.1 AST 28 ALT 35 Alkaline Phosphatase 81 Total Protein 6.7 Albumin 3.8 Globulin 2.9 Albumin/Globulin Ratio 1.3 12/12/23 12/12/23 16:27 11:48 Sodium Potassium Chloride Carbon Dioxide Anion Gap BUN Creatinine Estimated Creat Clear Estimated GFR Est GFR ( Amer) Glucose POC Glucose 176 H 176 H Calcium Total Bilirubin AST ALT Alkaline Phosphatase Total Protein Albumin Globulin Albumin/Globulin Ratio DS: Diagnosis Discharge Diagnosis (1) Left-sided low back pain with sciatica: Status: Acute Code(s): M54.42 - Lumbago with sciatica, left side (2) Lumbar nerve root impingement: Status: Acute Code(s): M54.16 - Radiculopathy, lumbar region (3) Lumbar radiculopathy: Status: Acute Code(s): M54.16 - Radiculopathy, lumbar region (4) Degenerative disc disease, lumbar: Status: Acute Code(s): M51.36 - Other intervertebral disc degeneration, lumbar region (5) HLD (hyperlipidemia): Status: Acute Code(s): E78.5 - Hyperlipidemia, unspecified Qualifiers: Hyperlipidemia type: unspecified Qualified Code(s): E78.5 - Hyperlipidemia, unspecified (6) Coronary artery disease: Status: Acute Code(s): I25.10 - Atherosclerotic heart disease of [place] coronary artery without angina pectoris Qualifiers: Associated angina: with other forms of angina Coronary Disease- Associated Artery/Lesion type: [place] artery [place] vs. transplanted heart: [place] heart Qualified Code(s): I25.118 - Atherosclerotic heart disease of [place] coronary artery with other forms of angina pectoris (7) COPD (chronic obstructive pulmonary disease): Status: Chronic Code(s): J44.9 - Chronic obstructive pulmonary disease, unspecified (8) HFrEF (heart failure with reduced ejection fraction): Status: Chronic Code(s): I50.20 - Unspecified systolic (congestive) heart failure (9) Constipation: Status: Acute Code(s): K59.00 - Constipation, unspecified Meds Home Medications and Allergies Home Medications Medication Instructions Recorded Confirmed Type famotidine 20 mg tablet (Pepcid) 20 mg PO BID Reflux/Acid reflux 11/16/22 12/10/23 History valacyclovir 500 mg tablet 500 mg PO DAILY Infection 01/10/23 12/10/23 History (Valtrex) tamsulosin 0.4 mg capsule 0.4 mg PO HS prostate 01/22/23 12/10/23 History aspirin 81 mg tablet,delayed 81 mg PO DAILY 30 days #30 tabs 01/23/23 12/10/23 Rx release sacubitril 24 mg-valsartan 26 mg 1 tab PO BID 30 days #60 tabs 02/20/23 12/10/23 Rx tablet (Entresto) albuterol sulfate 90 mcg/actuation 2 inh inhalation QID PRN shortness 07/03/23 12/10/23 Rx aerosol inhaler of breath or wheezing 90 days #8.5 grams atorvastatin 40 mg tablet See Rx Instructions .Route 08/27/23 12/10/23 Rx .COMPLEX #90 tabs methocarbamol 750 mg tablet 750 mg PO BID #28 tabs 10/10/23 12/10/23 Rx clopidogrel 75 mg tablet (Plavix) 75 mg PO DAILY 12/10/23 12/10/23 History empagliflozin 25 mg tablet 25 mg PO DAILY 12/10/23 12/10/23 History (Jardiance) gabapentin 100 mg capsule 200 mg PO BID 3 days #12 caps 12/13/23 Rx lidocaine 5 % topical patch 1 patch topical Q24H 7 days #7 ea 12/13/23 Rx methylprednisolone 4 mg tablet 4 mg PO Q6H 3 days #12 tabs 12/13/23 Rx (Medrol) oxycodone-acetaminophen 7.5 mg-325 1 tab PO Q6H PRN Severe Pain 12/13/23 Rx mg tablet (7-10) 3 days #12 tabs polyethylene glycol 3350 17 gram 17 g PO Q8H 7 days #7 ea 12/13/23 Rx oral powder packet (Miralax) New Prescriptions to Start Prescriptions: gabapentin Delio,Irfan lidocaine Delio,Irfan methylprednisolone [Medrol] Delio,Irfan oxycodone-acetaminophen Delio,Irfan polyethylene glycol 3350 [Miralax] Delio,Irfan Allergies Allergy/AdvReac Type Severity Reaction Status Date / Time pseudoephedrine AdvReac Severe Palpitation Verified 12/10/23 18:37 s codeine AdvReac Mild Vomiting Verified 12/10/23 18:37 Discharge Plan Disposition Patient Disposition: Home, Self-Care Condition: Fair Follow up Plan Follow up with: Darron Olivia MD [Staff Physician] - Enter time for follow up Eddi Gomez MD [Primary Care Provider] - Enter time for follow up Prescriptions/Medication Reconciliation: New polyethylene glycol 3350 [Miralax] 17 gram Powder In Packet 17 g PO Q8H 7 Days Qty: 7 0RF lidocaine 5 % Adhesive Patch,Medicated 1 patch topical Q24H 7 Days Qty: 7 0RF gabapentin 100 mg Capsule 200 mg PO BID 3 Days Qty: 12 0RF oxycodone-acetaminophen 7.5-325 mg Tablet 1 tab PO Q6H PRN (Reason: Severe Pain (7-10)) 3 Days Qty: 12 0RF methylprednisolone [Medrol] 4 mg tablet 4 mg PO Q6H 3 Days Qty: 12 0RF Continued valacyclovir [Valtrex] 500 mg tablet 500 mg PO DAILY Entresto 24-26 mg tablet 1 tab PO BID 30 Days Qty: 60 5RF albuterol sulfate 90 mcg/actuation HFA aerosol inhaler 2 inh inhalation QID PRN (Reason: shortness of breath or wheezing) 90 Days Qty: 8.5 2RF atorvastatin 40 mg tablet See Rx Instructions .ROUTE .COMPLEX Qty: 90 4RF Dose Instruction: TAKE 1 TABLET BY MOUTH AT BEDTIME EVERY NIGHT Rx Instructions: TAKE 1 TABLET BY MOUTH AT BEDTIME EVERY NIGHT famotidine [Pepcid] 20 mg Tablet 20 mg PO BID methocarbamol 750 mg tablet 750 mg PO BID Qty: 28 0RF tamsulosin 0.4 mg capsule 0.4 mg PO HS Patient Comments: TAKE 1 CAPSULE BY MOUTH ONCE DAILY AT BEDTIME aspirin 81 mg Tablet,Delayed Release (Dr/Ec) 81 mg PO DAILY 30 Days Qty: 30 0RF Jardiance 25 mg Tablet 25 mg PO DAILY Held clopidogrel [Plavix] 75 mg Tablet 75 mg PO DAILY Hold Instructions: Resume on 12/20/23. Problem Reconciliation Problems Reviewed?: Yes Patient Discharge Instructions ACTIVITY: Ambulate as tolerated and Limited activity DIET: continue same diet Patient Instructions: DI for Constipation, DI for Back Pain With Sciatica, DI for Urinary Retention in Men, Catheter-Associated Urinary Tract Infection Providers Primary Care Provider: Eddi Gomez Admit Provider: Zion Cee Attending Provider: Zion Cee
--- NOTE | 2023-12-13 11:21 | HMH.PHAINT1 ---
Pharmacy Intervention Comments: DISCHARGE MEDICATION COUNSELING PROVIDED TO PATIENT, DISCUSSING HOLDING PLAVIX UNTIL 12/20/23 AND STARTING THE FOLLOWING: -GABAPENTIN (NERVE PAIN, TWICE DAILY, DIZZINESS, DROWSINESS, POSSIBLE) -MEDROL (STEROID, TAKE EVERY 6 HOURS, TAKE WITH FOOD, N/V/D, INSOMNIA POSSIBLE) -LIDOCAINE PATCH (FOR PAIN, APPLY NEW PATCH DAILY, REMOVE AFTER 12 HOURS, IRRIATION POSSIBLE) -PERCOCET (FOR PAIN, EVERY 6 HOURS NEEDED, DIZZINESS, DROWSINESS, SEDATION, UPSET STOMACH, CONSTIPATION POSSIBLE) -MIRALAX (DAILY, MIX WITH 8 OUNCES OF WATER AND DRINK, BLOATING POSSIBLE) PATIENT VERBALIZED NO QUESTIONS AT THIS TIME.
--- NOTE | 2023-12-14 12:21 | CARE MANAGER ---
Spoke with patient related to hospital discharge. He states that he is feeling a little better today. He is aware of follow up appointments and received his medications. Denies questions or concerns. SYED Ayala
== END 2023-12-13 12:38 | disposition home or self-care (01) ==
LOC: ER 15:59 → 2ND 17:03
PROVIDERS: Admitting Provider Internal Medicine Adolescent Medicine; Emergency Provider Emergency Medicine; PCP Internal Medicine; Visit Provider Internal Medicine Adolescent Medicine
DX: M54.42 Lumbago with sciatica, left side (principal); M54.16 Radiculopathy, lumbar region; M51.36 Other intervertebral disc degeneration, lumbar region; E78.5 Hyperlipidemia, unspecified; I25.118 Atherosclerotic heart disease of native coronary artery with other forms of angina pectoris; J44.9 Chronic obstructive pulmonary disease, unspecified; I50.20 Unspecified systolic (congestive) heart failure; K59.00 Constipation, unspecified; M48.061 Spinal stenosis, lumbar region without neurogenic claudication; N40.0 Benign prostatic hyperplasia without lower urinary tract symptoms; I50.22 Chronic systolic (congestive) heart failure; Z95.0 Presence of cardiac pacemaker
CPT/HCPCS: 36415; 72131; 73502; 73700; 74177; 80048; 80053; 81001; 82962; 83036; 83735; 85007; 85025; 97110; 97162; 97530; 99285; G0378; Q9967

== ENCOUNTER 2023-12-18 07:51 | Day surgery (SDC) | payer MEDICARE, OTHER, SELFPAY ==
[2023-12-18 08:17] VITALS: BP 136/90; PULSE 86; RESP 16; TEMP 36.7; O2SAT 97; BMI 27.0
[2023-12-18] MEDS: methylPREDNISolone ACETATE 80MG/ML VIAL 80 MG (08:42)
[2023-12-18 08:43] VITALS: BP 174/81; PULSE 82; RESP 18; O2SAT 95
[2023-12-18 08:44] VITALS: BP 174/81; PULSE 82; RESP 18; O2SAT 95
[2023-12-18 08:50] VITALS: BP 138/93; PULSE 94; RESP 16; O2SAT 97
--- NOTE | 2023-12-18 09:01 | P.PCN_ITS ---
Procedure Date: 12/18/23 Time: 08:30 Anesthesiologist:: John Jj CRNA Complications:: None Pre-procedure Diagnosis:: Degenerative disc lumbar spine multilevels. Lumbar radiculopathy. Lumbar disc bulge L4-5, L5-S1. Lumbar facet arthropathy. Post-procedure Diagnosis:: Same. Indications for Procedure:: Patient is a very pleasant 68-year-old male comes our clinic today for lumbar epidural steroid injection L4-5 level. Patient was hospitalized last week due to increased pain in the low back as well as down the right hip and leg. Patient had initial consultation with spine surgery yesterday at [facility]. Patient will have updated lumbar MRI and follow-up with surgeon for review of findings. Lumbar epidural steroid injection at the L4-5 level was recommended by surgery yesterday. Procedure Details:: Procedure: Lumbar epidural steroid injection under fluoroscopy Informed consent was obtained and the risks and benefits of the procedure were explained to the patient. The patient was taken to the procedure room and noninvasive monitors placed, including noninvasive blood pressure cuff and pulse oximeter. The back was viewed using C-arm Fluoroscopy and prepped using Chloraprep as a cleansing solution and the L4-L5 interspace was palpated. Skin and subcutaneous tissues were anesthetized using lidocaine 1.5% and a 25-gauge needle. After this, an 18-gauge Touhy epidural needle was placed into the L4-L5 interspace and advanced using fluoroscopic guidance and loss of resistance to air until the epidural space was encountered. After confirmation of needle placement in the epidural space, with dye, a solution containing normal saline, 3 mL and Depo-Medrol 80 mg were incrementally injected into the lumbar epidural space. The patient tolerated the procedure well with no complications. The patient was observed in the Pain Clinic and then discharged home neurologically intact. Plan and Disposition:: Patient was discharged on incident.
== END 2023-12-18 08:50 | disposition home or self-care (01) ==
LOC: SC.PAINP 07:52
PROVIDERS: PCP Internal Medicine; Visit Provider Nurse Anesthetist, Certified Registered
DX: M51.16 Intervertebral disc disorders with radiculopathy, lumbar region (principal); M51.26 Other intervertebral disc displacement, lumbar region; M47.26 Other spondylosis with radiculopathy, lumbar region
CPT/HCPCS: 62323; J1040

== ENCOUNTER 2024-01-02 08:33 | Outpatient (POV) | payer MEDICARE, OTHER, SELFPAY ==
[2024-01-02 08:46] VITALS: BP 127/89; PULSE 110; RESP 20; BMI 27.8
--- NOTE | 2024-01-02 08:47 | A.OFFVIS_ITS ---
[facility] Pain Management SOAP Note Subjective:: Patient is a pleasant 68-year-old male who presents today for follow-up of lumbar epidural steroid injection L4-L5 on 12/18/2023. Patient rates his pain today a 7 out of 10. He states that he did not really notice significant relief with this injection. Patient was recently hospitalized due to more severe pain in his low back that did radiate down his entire left leg. Patient does state that this was a new pain sensation that he had not had up to that point. He does describe it as an aching, throbbing sensation with electrical shock sensations down into his left calf to his foot. He does state the pain interferes with his ability perform activities of daily living such as cooking a nd cleaning. He does state that it is more severe with increased ambulation or activity. Patient was also sent for neurosurgery consult with Kole Mahmood who was requesting an updated MRI. Patient states that this is scheduled for the of this month. Patient is interested in any help we may be able to provide. He has been prescribed compounded cream in the past. He was recently prescribed Percocet and gabapentin from his primary care provider. His Aayush has been reviewed and is appropriate. Review of Systems: General: No recent weight changes, no fever, no sleep disturbances Respiratory: No cough, no shortness of air, no recurring pulmonary infections Cardiovascular/peripheral vascular: No chest pain, no palpitations, no edema, no shortness of breath Gastrointestinal: No new onset incontinence, normal bowel movements reported Genitourinary: No new onset incontinence Musculoskeletal: Low back pain, left leg pain Psychiatric: [Normal mood/affect] Neurological: [Denies weakness in extremities], [denies balance issues] Objective:: Physical Exam: General: Alert and oriented x3, no acute distress, pleasant and cooperative Lungs: Respirations even and unlabored, symmetrical chest expansion Eyes: PERRL Musculoskeletal: Flexion and extension of lumbar [spine] somewhat guarded secondary to pain, [antalgic gait noted] positive left leg raise with decreased sensation to light touch and decreased reflexes Neurological: Speech clear, no gross sensory deficit FINDINGS: There is no acute fracture. There is mild retrolisthesis of L2 on L3, stable from prior exam. There are multilevel, mild degenerative changes. The vertebra are normal height. . Facets are properly aligned. Prevertebral soft tissues unremarkable. Note is made of cholelithiasis. L1-2: Annular disc bulge with facet arthropathy and osteophytes. L2-3: Annular disc bulge with facet arthropathy and osteophytes. There is moderate right and mild left neuroforaminal narrowing. L3-4: Annular disc bulge with facet arthropathy and osteophytes. There is severe bilateral neuroforaminal narrowing. L4-5: Annular disc bulge with facet arthropathy and osteophytes. There is severe right and moderate left neuroforaminal narrowing. L5-S1: Annular disc bulge with facet arthropathy and osteophytes. There is moderate bilateral neuroforaminal narrowing. IMPRESSION: No acute bony abnormality. Degenerative changes as above, stable from prior exam. Reviewed, Interpreted and Dictated by Sriram Schaffer III, MD Transcribed by Starr Che Authenticated and Electronically Signed by Sriram Schaffer Assessment:: Degenerative disc disease of lumbar spine with lumbar radiculopathy symptoms, chronic pain syndrome, lumbar facet arthropathy Plan:: Patient is experiencing worsening pain in his low back and left leg with limited range of motion and a positive left leg raise. Patient had decreased sensation to light touch and decreased reflexes. I have discussed with the patient that he may have a new finding of the nerve being impinged upon causing the worsening pain. I have discussed that he may be a beneficial candidate of a left transforaminal epidural steroid injection. Risk and benefits were discussed with the patient and he would like to proceed forward with this plan of care. Patient is not on any blood thinners. I will also send in a 5-day dose of prednisone 20 mg twice daily at. Patient will be scheduled for a left t ransforaminal epidural steroid injection L3-L4 and L4-L5 where he did have more severe narrowing with his last CT. This will be done under fluoroscopic guidance. Patient has been instructed to contact the clinic with any concerns before the next appointment. Dr. Olivia has reviewed this note and agrees with this plan of care. This note was dictated using voice recognition software and make contain errors or omissions. [facility] Disclaimer: The information contained in this section may have been updated after the patient was seen, as this information can be updated by other users. Medical History DDD (degenerative disc disease) Sciatica Heart failure COPD exacerbation HFrEF (heart failure with reduced ejection fraction) Left-sided low back pain with sciatica Lumbar nerve root impingement Lumbar spinal stenosis Degenerative disc disease, lumbar Bleeding nose Dyspnea Abnormal computerized axial tomography of chest Diastolic dysfunction HLD (hyperlipidemia) Coronary artery disease Class 1 obesity Ventricular tachycardia Allergic rhinitis Encounter for screening for malignant neoplasm of lung in current smoker with 30 pack year history or greater COPD (chronic obstructive pulmonary disease) Pulmonary emphysema Stopped smoking with greater than 30 pack year history Dyspnea on exertion Lung nodule Hx of acute arthritis Hx of gastroesophageal reflux (GERD) Supraventricular tachycardia Surgical History History of permanent cardiac pacemaker placement History of cardiac defibrillator placement History of heart artery stent History of colonoscopy Family History Cancer Social History Smoking Status: Former smoker smoking status stop date: stopped 14 years ago second hand exposure: No alcohol intake: current substance use type: denies use current occupational status: other Travel in the last 8 weeks: None adopted: No caregiver/support person: Yes (Doreen Powell) foster care: No household members: spouse housing: house lives independently: Yes marital status: number of children: 6 number of grandchildren: 14 education level: high school service: No long-term: No current occupation: [employer] current occupational exposures/hazards: Yes caffeine: Yes physical activity: none frequency: 1-2 times per week duration: 15-30 minutes/day duane/religious: Hoahaoism do you feel safe at home: Yes victim of physical abuse: No victim of emotional abuse: No victim of sexual abuse: No would you like helpful sources: No
== END 2024-01-02 23:59 | disposition home or self-care (01) ==
PROVIDERS: PCP Internal Medicine; Visit Provider Nurse Practitioner Family
DX: M51.16 Intervertebral disc disorders with radiculopathy, lumbar region (principal); M47.26 Other spondylosis with radiculopathy, lumbar region; G89.4 Chronic pain syndrome
CPT/HCPCS: 99212; G0463

== ENCOUNTER 2024-01-08 17:02 | Emergency (ER) | payer MEDICARE, OTHER, SELFPAY ==
[2024-01-08 17:02] VITALS: BP 157/83; PULSE 62; RESP 16; TEMP 36.8; O2SAT 97; BMI 27.1
[2024-01-08] MEDS: GABAPENTIN 100MG CAPSULE 200 MG PO (17:51)
[2024-01-08] MEDS: OXYCODONE 7.5MG W/APAP 325MG TABLET 1 EACH PO ×2 (17:51→22:16)
[2024-01-08] MEDS: ACETAMINOPHEN 500MG TAB 500 MG PO (17:51)
[2024-01-08] MEDS: LIDOCAINE 5% TRANSDERMAL PATCH 1 EACH TP (17:51)
[2024-01-08] MEDS: LACTATED RINGERS 1000ML 500 ML 999 ML IV (17:51)
[2024-01-08] MEDS: METHOCARBAMOL 500MG TABLET 500 MG PO (17:51)
--- NOTE | 2024-01-08 17:53 | HMH.EDGENADL ---
Discharge Plan Disposition Patient Disposition: Home, Self-Care Condition: Fair Prescriptions Prescriptions: New methocarbamol 750 mg tablet 750 mg PO Q6H PRN (Reason: pain) 5 Days Qty: 20 0RF No Action valacyclovir [Valtrex] 500 mg tablet 500 mg PO DAILY Entresto 24-26 mg tablet 1 tab PO BID 30 Days Qty: 60 5RF albuterol sulfate 90 mcg/actuation HFA aerosol inhaler 2 inh inhalation QID PRN (Reason: shortness of breath or wheezing) 90 Days Qty: 8.5 2RF atorvastatin 40 mg tablet See Rx Instructions .ROUTE .COMPLEX Qty: 90 4RF Dose Instruction: TAKE 1 TABLET BY MOUTH AT BEDTIME EVERY NIGHT Rx Instructions: TAKE 1 TABLET BY MOUTH AT BEDTIME EVERY NIGHT famotidine [Pepcid] 20 mg Tablet 20 mg PO BID methocarbamol 750 mg tablet 750 mg PO BID Qty: 28 0RF prednisone 20 mg tablet 20 mg PO BID Qty: 10 0RF tamsulosin 0.4 mg capsule 0.4 mg PO HS Patient Comments: TAKE 1 CAPSULE BY MOUTH ONCE DAILY AT BEDTIME aspirin 81 mg Tablet,Delayed Release (Dr/Ec) 81 mg PO DAILY 30 Days Qty: 30 0RF Jardiance 25 mg Tablet 25 mg PO DAILY clopidogrel [Plavix] 75 mg Tablet 75 mg PO DAILY Hold Instructions: Resume on 12/20/23. polyethylene glycol 3350 [Miralax] 17 gram Powder In Packet 17 g PO Q8H 7 Days Qty: 7 0RF lidocaine 5 % Adhesive Patch,Medicated 1 patch topical Q24H 7 Days Qty: 7 0RF gabapentin 100 mg Capsule 200 mg PO BID 3 Days Qty: 12 0RF oxycodone-acetaminophen 7.5-325 mg Tablet 1 tab PO Q6H PRN (Reason: Severe Pain (7-10)) 3 Days Qty: 12 0RF methylprednisolone [Medrol] 4 mg tablet 4 mg PO Q6H 3 Days Qty: 12 0RF Referrals Follow up/Referrals: Eddi Gomez MD [Primary Care Provider] - See instructions Activity Restrictions/Add. Instructions Additional Instructions/Restrictions: You have been evaluated in the ED for your complaints. You may follow-up with your PCP in the next 3 to 5 days. Please return to ED for any new or worsening symptoms. As discussed, please continue taking your medications as prescribed for your sciatica. Please oyster picker your refill for your gabapentin on this upcoming Sunday as discussed as this medication has seemed to help your pain. Please keep your appointment for your MRI on next Sunday. Clinical Impressions Clinical Impression: Left sciatic nerve pain Discharge ED Provider: Josh Reynolds Adult HPI General Chief complaint: PAIN Stated complaint: poss sciatic pain Time Seen by Provider: 01/08/24 17:24 Mode of Arrival: Ambulatory Source of Information: Patient History of Present Illness HPI narrative: 68-year-old male with past medical history significant for sciatica, HLD, GERD, emphysema, SVT, presents today for evaluation concerning left lower back pain radiating down to his left lower extremity, worsening over the past few days. He states that this is the same pain that he has been experiencing however significantly uncontrolled at this time. States that he takes gabapentin 200 mg twice daily however has been out of his medication over the past couple days. Also takes oxycodone 7.5?325 noting minimal relief at this time. He denies any associated injuries. Denies any numbness, tingling or weakness. He has no further complaints. Related Data Home Medications Medication Instructions Recorded Confirmed famotidine 20 mg tablet (Pepcid) 20 mg PO BID Reflux/Acid reflux 11/16/22 12/18/23 valacyclovir 500 mg tablet 500 mg PO DAILY Infection 01/10/23 12/18/23 (Valtrex) tamsulosin 0.4 mg capsule 0.4 mg PO HS prostate 01/22/23 12/18/23 clopidogrel 75 mg tablet (Plavix) 75 mg PO DAILY 12/10/23 12/18/23 empagliflozin 25 mg tablet 25 mg PO DAILY 12/10/23 12/18/23 (Jardiance) Previous Rx's Medication Instructions Recorded aspirin 81 mg tablet,delayed 81 mg PO DAILY 30 days #30 tabs 01/23/23 release sacubitril 24 mg-valsartan 26 mg 1 tab PO BID 30 days #60 tabs 02/20/23 tablet (Entresto) albuterol sulfate 90 mcg/actuation 2 inh inhalation QID PRN shortness 07/03/23 aerosol inhaler of breath or wheezing 90 days #8.5 grams atorvastatin 40 mg tablet See Rx Instructions .Route 08/27/23 .COMPLEX #90 tabs methocarbamol 750 mg tablet 750 mg PO BID #28 tabs 10/10/23 gabapentin 100 mg capsule 200 mg (2 x 100 mg) PO BID 3 days 12/13/23 #12 caps lidocaine 5 % topical patch 1 patch topical Q24H 7 days #7 ea 12/13/23 methylprednisolone 4 mg tablet 4 mg PO Q6H 3 days #12 tabs 12/13/23 (Medrol) oxycodone-acetaminophen 7.5 mg-325 1 tab PO Q6H PRN Severe Pain 12/13/23 mg tablet (7-10) 3 days #12 tabs polyethylene glycol 3350 17 gram 17 g PO Q8H 7 days #7 ea 12/13/23 oral powder packet (Miralax) prednisone 20 mg tablet 20 mg PO BID #10 tabs 01/02/24 methocarbamol 750 mg tablet 750 mg PO Q6H PRN pain 5 days #20 01/08/24 tabs Allergies Allergy/AdvReac Type Severity Reaction Status Date / Time pseudoephedrine AdvReac Severe Palpitation Verified 12/18/23 08:06 s codeine AdvReac Mild Vomiting Verified 12/18/23 08:06 PFSH PFSH Disclaimer: The information contained in this section may have been updated after the patient was seen, as this information can be updated by other users. Medical History (Updated 01/08/24 @ 21:57 by Josh Reynolds DO) DDD (degenerative disc disease) Sciatica Heart failure COPD exacerbation HFrEF (heart failure with reduced ejection fraction) Left-sided low back pain with sciatica Lumbar nerve root impingement Lumbar spinal stenosis Degenerative disc disease, lumbar Bleeding nose Dyspnea Abnormal computerized axial tomography of chest Diastolic dysfunction HLD (hyperlipidemia) Coronary artery disease Class 1 obesity Ventricular tachycardia Allergic rhinitis Encounter for screening for malignant neoplasm of lung in current smoker with 30 pack year history or greater COPD (chronic obstructive pulmonary disease) Pulmonary emphysema Stopped smoking with greater than 30 pack year history Dyspnea on exertion Lung nodule Hx of acute arthritis Hx of gastroesophageal reflux (GERD) Supraventricular tachycardia Surgical History History of permanent cardiac pacemaker placement History of cardiac defibrillator placement History of heart artery stent History of colonoscopy Family History Cancer Social History Smoking Status: Never smoker smoking status stop date: stopped 14 years ago second hand exposure: No alcohol intake: current substance use type: denies use current occupational status: other Travel in the last 8 weeks: None adopted: No caregiver/support person: Yes (Doreendallin Powell) foster care: No household members: spouse housing: house lives independently: Yes marital status: number of children: 6 number of grandchildren: 14 education level: high school service: No mcfp: No current occupation: [employer] current occupational exposures/hazards: Yes caffeine: Yes physical activity: none frequency: 1-2 times per week duration: 15-30 minutes/day duane/nondenominational: Hindu do you feel safe at home: Yes victim of physical abuse: No victim of emotional abuse: No victim of sexual abuse: No would you like helpful sources: No ROS Obtained: Yes All systems reviewed & no additional complaints except as documented Physical Exam General General appearance: alert and in no apparent distress Head Head exam: atraumatic and normocephalic Eye Eye exam: Present normal appearance, PERRL and EOMI ENT ENT exam: Present normal oropharynx and mucous membranes moist Neck Neck exam: Present full ROM; Absent meningismus Respiratory Respiratory exam: Absent respiratory distress, wheezes, stridor or accessory muscle use Cardiovascular Cardiovascular exam: Present normal rhythm Abdominal Exam Abdominal exam: Present soft; Absent distention, tenderness, guarding, rebound or rigidity Back Exam Back exam: Present tenderness (Midline tenderness along the midline of the lower L spine, no external signs of trauma) Neurological Exam Neurological exam: Present alert, oriented X3 and CN II-XII intact; Absent motor sensory deficit Psychiatric Psychiatric exam: Present normal affect and normal mood Skin Skin exam: Present warm and dry Medical Decision Making Medical Records Medical records reviewed: Yes I reviewed the patient's medical records. Aayush Inquiry Pt receiving controlled substance: No Aayush was queried for this patient: No Vital Signs: 01/08/24 17:02 01/08/24 18:30 01/08/24 19:00 Temperature 98.2 F Temperature Source Oral Pulse Rate 64 63 Pulse Rate [Right] 62 Respiratory Rate 16 18 Blood Pressure 157/83 H 171/92 H Blood Pressure [Right Arm] 157/83 H Blood Pressure Mean 116 Blood Pressure Mean [Right Arm] 107 Blood Pressure Source Blood Pressure Position Blood Pressure Position [Right Arm] Sitting 02 Sat by Pulse Oximetry 97 97 97 Oxygen Delivery Method Room Air Room Air Room Air 01/08/24 19:30 01/08/24 20:00 01/08/24 22:18 Temperature 97.9 F Temperature Source Oral Pulse Rate 65 69 92 H Pulse Rate [Right] Respiratory Rate 20 18 16 Blood Pressure 155/72 H 149/70 H 147/95 H Blood Pressure [Right Arm] Blood Pressure Mean 110 96 Blood Pressure Mean [Right Arm] Blood Pressure Source Automatic Cuff Blood Pressure Position Sitting Blood Pressure Position [Right Arm] 02 Sat by Pulse Oximetry 95 96 Oxygen Delivery Method Room Air Room Air Room Air Lab Data Lab Results 01/08/24 18:10: WBC 10.9 H, RBC 5.85, Hgb 18.4 H, Hct 52.7 H, MCV 90.0, MCH 31.4 H, MCHC 34.8, RDW 13.9, Plt Count 219, MPV 8.7, Neut % (Auto) 62.0, Lymph % (Auto) 27.2, [place] % (Auto) 8.0, Eos % (Auto) 1.4, Baso % (Auto) 1.5, Neut # (Auto) 6.7, Lymph # (Auto) 3.0, [place] # (Auto) 0.9, Eos # (Auto) 0.2, Baso # (Auto) 0.2, Sodium 139, Potassium 3.6, Chloride 106, Carbon Dioxide 24, Anion Gap 12.6, BUN 16, Creatinine 0.70, Estimated GFR 112, Est GFR ( Amer) 136, Glucose 138 H, Calcium 10.0 01/08/24 18:10 01/08/24 18:10 Orders (Tests/Meds): ED MEDICATIONS Discontinued Medications Generic Name Dose Route Start Last Admin Trade Name Freq PRN Reason Stop Dose Admin Acetaminophen 500 mg 01/08/24 17:26 01/08/24 17:51 Acetaminophen 500mg Tab PO 01/08/24 17:27 500 mg ONCE ONE Administration Gabapentin 200 mg 01/08/24 17:27 01/08/24 17:51 Gabapentin 100mg Capsule PO 01/08/24 17:28 200 mg ONCE ONE Administration Gabapentin 400 mg 01/08/24 21:52 01/08/24 22:14 Gabapentin 100mg Capsule PO 01/08/24 21:53 400 mg ONCE ONE Administration Hydromorphone HCl 1 mg 01/08/24 19:21 01/08/24 20:24 Hydromorphone 2mg/Ml Syringe IV 01/08/24 19:22 1 mg ONCE ONE Administration Lactated Ringer's 500 mls @ 999 mls/hr 01/08/24 17:30 01/08/24 17:51 Lactated Ringer's 1000 Ml Bag IV 01/08/24 18:00 999 mls/hr .Q31M ONE Administration Lidocaine 1 each 01/08/24 17:26 01/08/24 17:51 Lidocaine 5% Transdermal Patch TP 01/08/24 17:27 1 each ONCE ONE Administration Methocarbamol 500 mg 01/08/24 17:27 01/08/24 17:51 Methocarbamol 500mg Tablet PO 01/08/24 17:28 500 mg ONCE ONE Administration Oxycodone/Acetaminophen 1 each 01/08/24 17:27 01/08/24 17:51 Oxycodone 7.5mg W/Apap 325mg Tablet PO 01/08/24 17:28 1 each ONCE ONE Administration Oxycodone/Acetaminophen 1 each 01/08/24 21:53 01/08/24 22:16 Oxycodone 7.5mg W/Apap 325mg Tablet PO 01/08/24 21:54 1 each ONCE ONE Administration ORDERS Category Date Time Status BMP [Basic Metabolic Panel] Stat Lab 01/08/24 18:10 Completed CBC w/Auto Diff [Complete Blood Count Auto Diff] Stat Lab 01/08/24 18:10 Completed Medical Decision Narrative: 68-year-old male with past medical history significant for sciatica, HLD, GERD, emphysema, SVT, presents today for evaluation concerning left lower back pain radiating down to his left lower extremity, worsening over the past few days. He states that this is the same pain that he has been experiencing however significantly uncontrolled at this time. States that he takes gabapentin 200 mg twice daily however has been out of his medication over the past couple days. Also takes oxycodone 7.5?325 noting minimal relief at this time. On assessment, the patient was hemodynamically stable and in no acute distress. He did have reproducible midline chest palpation along the lower lumbar spine without external signs of trauma. Positive straight leg test raise on the left. On physical exam findings unremarkable. Differential diagnoses include but not limited to sciatica, muscle spasm, fracture, among others. Did consider the utility of CT imaging however since patient's pain is his usual pain however uncontrolled and given that there was no new trauma or history of metastatic processes,, CT imaging was deferred. Patient was initially given his home medications, oxycodone 7.5?325, 200 mg of gabapentin. Also ordered for lidocaine patch, 500 mg of Tylenol and 500 mg of Robaxin. Also ordered for fluid bolus of LR. On reassessment the patient remained medically stable and in no acute distress. His pain was improved at this time. Attempted ambulation however he was only able to take a few steps. At this time I did give him IV Dilaudid to further assist with his pain and it did improve and he was able to ambulate a bit more with walker assist. I had interactive discussion with patient and his concerning pain control and admission to the hospital versus trial at home. Given that patient's pain has improved and that he is able to ambulate a little better even with walker assist, decision was made to discharge home. Prior to discharge I did order for a 400 mg dose of gabapentin and another dose of oxycodone to further assist. I will also prescribe him lidocaine patches for home and also instructed that he can take ibuprofen as well to further assist. He does have a prescription for gabapentin however he will not be able to refill this medication until Sunday. Also has an MRI scheduled on next Sunday which she will keep. Provided patient with return ED precautions and instructions concerning PCP follow-up. He verbalized understanding and agreed with plan. Subsequently discharged home in medically stable and in no distress Critical Care Critical Care Time Critical Care Time: No
[2024-01-08 18:26] LABS: Basophils # 0.2 K/mm3 (0-0.2); Basophils % 1.5 % (0.1-2.0); Eosinophils # 0.2 K/mm3 (0.0-0.4); Eosinophils % 1.4 % (0.1-12.0); Hematocrit 52.7 % (42.0-52.0); Lymphocytes % 27.2 % (10-50); Mean Corpuscular HGB Conc 34.8 g/dL (31.8-35.4); Mean Corpuscular Hemoglobin 31.4 pg (27.0-31.2); Mean Platelet Volume 8.7 fl (7.4-10.4); Monocytes # 0.9 K/mm3 (0.1-1.0); Neutrophils # 6.7 K/mm3 (1.8-7.8); Platelet Count 219 K/mm3 (142-424); Red Blood Count 5.85 M/mm3 (4.60-6.20); Red Cell Distribution Width 13.9 % (11.5-17.5); White Blood Count 10.9 K/mm3 (4.8-10.8)
[2024-01-08 18:30] VITALS: BP 157/83; PULSE 64; O2SAT 97
[2024-01-08 18:31] LABS: Chloride 106 mmol/L (98-107); Potassium 3.6 mmoL/L (3.5-5.1); Sodium 139 mmol/L (136-145)
[2024-01-08 18:33] LABS: Hemoglobin 18.4 g/dL (14.1-18.0)
[2024-01-08 18:34] LABS: Anion Gap 12.6 mEq/L (5-15); Blood Urea Nitrogen 16 mg/dl (9-20); Carbon Dioxide 24 mmol/L (22.0-30.0); Estimated Glomerular Filt Rate 112 ml/min (>60); GFR (African American) 136 ML/MIN (>60); Glucose 138 mg/dl (74-100)
[2024-01-08 19:00] VITALS: BP 171/92; PULSE 63; RESP 18; O2SAT 97
[2024-01-08 19:30] VITALS: BP 155/72; PULSE 65; RESP 20; O2SAT 95
[2024-01-08 20:00] VITALS: BP 149/70; PULSE 69; RESP 18; O2SAT 96
--- NOTE | 2024-01-08 20:20 | PC.NURSE ---
ambulated approx 15 feet independently before it became 'untolerable'; patient is unable to continue. assisted back to laying position. md notified. Ordered to go on and give the 1mg dilaudid. administered via right arm AC 20g. Patient tolerated well. Will reassess and attempted following pain control.
[2024-01-08] MEDS: HYDROMORPHONE 2MG/ML SYRINGE 1 MG IV (20:24)
[2024-01-08] MEDS: GABAPENTIN 100MG CAPSULE 400 MG PO (22:14)
[2024-01-08 22:18] VITALS: BP 147/95; PULSE 92; RESP 16; TEMP 36.6; O2SAT 95
== END 2024-01-08 22:19 | disposition home or self-care (01) ==
PROVIDERS: Emergency Provider Emergency Medicine; PCP Internal Medicine
DX: M54.42 Lumbago with sciatica, left side (principal); E78.5 Hyperlipidemia, unspecified; J43.9 Emphysema, unspecified; K21.9 Gastro-esophageal reflux disease without esophagitis; I47.10 Supraventricular tachycardia, unspecified; I25.10 Atherosclerotic heart disease of native coronary artery without angina pectoris; I50.20 Unspecified systolic (congestive) heart failure
CPT/HCPCS: 80048; 85025; 96374; 99284

== ENCOUNTER 2024-01-22 12:28 | Day surgery (SDC) | payer MEDICARE, OTHER, SELFPAY ==
[2024-01-22 12:51] VITALS: BP 123/78; PULSE 88; RESP 18; TEMP 36.5; O2SAT 98; BMI 27.1
--- NOTE | 2024-01-22 13:03 | EXP.PAIN.PRO ---
Procedure Date: 01/22/24 Time: 13:00 Anesthesiologist:: John Jj CRNA Complications:: None Pre-procedure Diagnosis:: Degenerative disc lumbar spine multilevels. Lumbar disc bulge L4-5, L5-S1. Lumbar radiculopathy. Post-procedure Diagnosis:: Same. Indications for Procedure:: Patient is a very pleasant 68-year-old male comes our clinic today for a scheduled L3-4 and L4-5 left transforaminal epidural steroid injection. However, I had a short conversation with his surgeon from [facility] regarding today's injection. He is requesting a intralaminar L5-S1 to the left. He would like to see the patient back on February 03 for follow-up visit. Subsequent surgery consisting of discectomy laminectomy if in fact this shot is not effective. Patient complains of low back pain as well as left hip and leg radicular symptoms to the foot. He rates his pain 9/10. Procedure Details:: Procedure: Lumbar epidural steroid injection under fluoroscopy Informed consent was obtained and the risks and benefits of the procedure were explained to the patient. The patient was taken to the procedure room and noninvasive monitors placed, including noninvasive blood pressure cuff and pulse oximeter. The back was viewed using C-arm Fluoroscopy and prepped using Chloraprep as a cleansing solution and the L5-S1 interspace was palpated. Skin and subcutaneous tissues were anesthetized using lidocaine 1.5% and a 25-gauge needle. After this, an 18-gauge Touhy epidural needle was placed into the L5-S1 interspace and advanced using fluoroscopic guidance and loss of resistance to air until the epidural space was encountered. After confirmation of needle placement in the epidural space, with dye, a solution containing normal saline, 3 mL and Depo-Medrol 80 mg were incrementally injected into the lumbar epidural space. The patient tolerated the procedure well with no complications. The patient was observed in the Pain Clinic and then discharged home neurologically intact. Plan and Disposition:: Patient was discharged without incident.
[2024-01-22 13:05] VITALS: BP 134/83; PULSE 84; RESP 18; O2SAT 98
[2024-01-22] MEDS: LIDOCAINE 1% 5ML PF VIAL 5 ML (13:09)
[2024-01-22 13:13] VITALS: BP 133/77; PULSE 84; RESP 18; O2SAT 97
[2024-01-22 13:14] VITALS: BP 133/77; PULSE 84; RESP 18; O2SAT 97
== END 2024-01-22 13:05 | disposition home or self-care (01) ==
PROVIDERS: PCP Internal Medicine; Visit Provider Nurse Anesthetist, Certified Registered
DX: M51.16 Intervertebral disc disorders with radiculopathy, lumbar region (principal); M51.26 Other intervertebral disc displacement, lumbar region
CPT/HCPCS: 62323; J1030

== ENCOUNTER 2024-05-13 05:32 | Emergency (ER) | payer MEDICARE, OTHER, SELFPAY ==
[2024-05-13 05:33] VITALS: BP 141/86; PULSE 70; RESP 18; TEMP 36.4; O2SAT 98; BMI 27.7
[2024-05-13] MEDS: OXYMETAZOLINE NASAL SPRAY 0.05% 15ML NS (05:37)
--- NOTE | 2024-05-13 05:37 | PC.NURSE ---
DR ANGUIANO AT BEDSIDE
--- NOTE | 2024-05-13 05:40 | PC.NURSE ---
AFRIN PER DR ANGUIANO AND NOSE CLAMP APPLIED. CALL LIGHT WITHIN REACH
--- NOTE | 2024-05-13 05:41 | HMH.EDGENADL ---
Discharge Plan Disposition Patient Disposition: Home, Self-Care Condition: Good Prescriptions Prescriptions: No Action Entresto 24-26 mg tablet 1 tab PO BID 30 Days Qty: 60 5RF albuterol sulfate 90 mcg/actuation HFA aerosol inhaler 2 inh inhalation QID PRN (Reason: shortness of breath or wheezing) 90 Days Qty: 8.5 2RF atorvastatin 40 mg tablet See Rx Instructions .ROUTE .COMPLEX Qty: 90 4RF Dose Instruction: TAKE 1 TABLET BY MOUTH AT BEDTIME EVERY NIGHT Rx Instructions: TAKE 1 TABLET BY MOUTH AT BEDTIME EVERY NIGHT valacyclovir 1 gram tablet See Rx Instructions .ROUTE .COMPLEX Qty: 21 1RF Dose Instruction: TAKE 1 TABLET BY MOUTH THREE TIMES DAILY FOR 7 DAYS Rx Instructions: TAKE 1 TABLET BY MOUTH THREE TIMES DAILY FOR 7 DAYS famotidine [Pepcid] 20 mg Tablet 20 mg PO BID methocarbamol 750 mg tablet 750 mg PO BID Qty: 28 0RF prednisone 20 mg tablet 20 mg PO BID Qty: 10 0RF tamsulosin 0.4 mg capsule 0.4 mg PO HS Patient Comments: TAKE 1 CAPSULE BY MOUTH ONCE DAILY AT BEDTIME aspirin 81 mg Tablet,Delayed Release (Dr/Ec) 81 mg PO DAILY 30 Days Qty: 30 0RF Jardiance 25 mg Tablet 25 mg PO DAILY polyethylene glycol 3350 [Miralax] 17 gram Powder In Packet 17 g PO Q8H 7 Days Qty: 7 0RF lidocaine 5 % Adhesive Patch,Medicated 1 patch topical Q24H 7 Days Qty: 7 0RF gabapentin 100 mg Capsule 200 mg PO BID 3 Days Qty: 12 0RF oxycodone-acetaminophen 7.5-325 mg Tablet 1 tab PO Q6H PRN (Reason: Severe Pain (7-10)) 3 Days Qty: 12 0RF methylprednisolone [Medrol] 4 mg tablet 4 mg PO Q6H 3 Days Qty: 12 0RF methocarbamol 750 mg tablet 750 mg PO Q6H PRN (Reason: pain) 5 Days Qty: 20 0RF Referrals Follow up/Referrals: Eddi Gomez MD [Primary Care Provider] - See instructions Delaney Barber APRN [Nurse Practitioner] - See instructions Clinical Impressions Clinical Impression: Right-sided epistaxis Instructions Patient Instructions: DI for Nosebleed Discharge ED Provider: Amena Christie General Adult HPI General Chief complaint: Epistaxis Stated complaint: nose bleed Time Seen by Provider: 05/13/24 05:35 History of Present Illness HPI narrative: This patient is a 69-year-old male with a history of hyperlipidemia and diabetes presenting to the emergency department for evaluation with concern for nosebleed. Patient reports that intermittently for several days he has had bleeding from his right nostril. It started approximately 1 hour ago and has not stopped since, which is much longer than it lasted previously. No known trauma or other concerns. Its only from the right nostril. He has packed his nose with tissues at home without good improvement. He does not use any blood thinners. No history of significant ENT issues in the past Related Data Home Medications Medication Instructions Recorded Confirmed famotidine 20 mg tablet (Pepcid) 20 mg PO BID Reflux/Acid reflux 11/16/22 01/22/24 tamsulosin 0.4 mg capsule 0.4 mg PO HS prostate 01/22/23 01/22/24 empagliflozin 25 mg tablet 25 mg PO DAILY 12/10/23 01/22/24 (Jardiance) Previous Rx's Medication Instructions Recorded aspirin 81 mg tablet,delayed 81 mg PO DAILY 30 days #30 tabs 01/23/23 release sacubitril 24 mg-valsartan 26 mg 1 tab PO BID 30 days #60 tabs 02/20/23 tablet (Entresto) albuterol sulfate 90 mcg/actuation 2 inh inhalation QID PRN shortness 07/03/23 aerosol inhaler of breath or wheezing 90 days #8.5 grams atorvastatin 40 mg tablet See Rx Instructions .Route 08/27/23 .COMPLEX #90 tabs methocarbamol 750 mg tablet 750 mg PO BID #28 tabs 10/10/23 gabapentin 100 mg capsule 200 mg (2 x 100 mg) PO BID 3 days 12/13/23 #12 caps lidocaine 5 % topical patch 1 patch topical Q24H 7 days #7 ea 12/13/23 methylprednisolone 4 mg tablet 4 mg PO Q6H 3 days #12 tabs 12/13/23 (Medrol) oxycodone-acetaminophen 7.5 mg-325 1 tab PO Q6H PRN Severe Pain 12/13/23 mg tablet (7-10) 3 days #12 tabs polyethylene glycol 3350 17 gram 17 g PO Q8H 7 days #7 ea 12/13/23 oral powder packet (Miralax) prednisone 20 mg tablet 20 mg PO BID #10 tabs 01/02/24 methocarbamol 750 mg tablet 750 mg PO Q6H PRN pain 5 days #20 01/08/24 tabs valacyclovir 1 gram tablet See Rx Instructions .Route 05/10/24 .COMPLEX #21 tabs Allergies Allergy/AdvReac Type Severity Reaction Status Date / Time pseudoephedrine AdvReac Severe Palpitation Verified 01/22/24 12:57 s codeine AdvReac Mild Vomiting Verified 01/22/24 12:57 PFSH PFS Disclaimer: The information contained in this section may have been updated after the patient was seen, as this information can be updated by other users. Medical History DDD (degenerative disc disease) Sciatica Heart failure COPD exacerbation HFrEF (heart failure with reduced ejection fraction) Left-sided low back pain with sciatica Lumbar nerve root impingement Lumbar spinal stenosis Degenerative disc disease, lumbar Bleeding nose Dyspnea Abnormal computerized axial tomography of chest Diastolic dysfunction HLD (hyperlipidemia) Coronary artery disease Class 1 obesity Ventricular tachycardia Allergic rhinitis Encounter for screening for malignant neoplasm of lung in current smoker with 30 pack year history or greater COPD (chronic obstructive pulmonary disease) Pulmonary emphysema Stopped smoking with greater than 30 pack year history Dyspnea on exertion Lung nodule Hx of acute arthritis Hx of gastroesophageal reflux (GERD) Supraventricular tachycardia Surgical History History of permanent cardiac pacemaker placement History of cardiac defibrillator placement History of heart artery stent History of colonoscopy Family History Other Cancer Social History Smoking Status: Former smoker smoking status stop date: stopped 14 years ago second hand exposure: No alcohol intake: current substance use type: denies use current occupational status: other Travel in the last 8 weeks: None adopted: No caregiver/support person: Yes (Doreen Powell) foster care: No household members: spouse housing: house lives independently: Yes marital status: number of children: 6 number of grandchildren: 14 education level: high school service: No [place] [facility]: No current occupation: [employer] current occupational exposures/hazards: Yes caffeine: Yes physical activity: none frequency: 1-2 times per week duration: 15-30 minutes/day duane/oriental orthodox: Orthodox do you feel safe at home: Yes victim of physical abuse: No victim of emotional abuse: No victim of sexual abuse: No would you like helpful sources: No ROS Obtained: Yes All systems reviewed & no additional complaints except as documented Physical Exam General General appearance: alert and in no apparent distress Head Head exam: atraumatic and normocephalic Eye Eye exam: Present normal appearance, PERRL and EOMI ENT ENT exam: Present normal oropharynx, mucous membranes moist, normal external ear exam and other (Clotted blood in right nostril. No large septal hematoma or septal deviation.) Neck Neck exam: Present normal inspection, full ROM and trachea midline; Absent tenderness Chest Chest inspection: Present normal inspection and symmetric chest wall rise; Absent tenderness Respiratory Respiratory exam: Present normal lung sounds bilaterally; Absent respiratory distress, wheezes, stridor or accessory muscle use Cardiovascular Cardiovascular exam: Present regular rate and normal rhythm Abdominal Exam Abdominal exam: Present soft; Absent distention, tenderness or guarding Extremities Exam Extremities exam: Present normal inspection, full ROM and normal capillary refill; Absent tenderness or edema Back Exam Back exam: Present normal inspection and full ROM; Absent tenderness Neurological Exam Neurological exam: Present alert, oriented X3, CN II-XII intact and normal gait; Absent motor sensory deficit Psychiatric Psychiatric exam: Present normal affect and normal mood Skin Skin exam: Present warm and dry Medical Decision Making Medical Records Medical records reviewed: Yes I reviewed the patient's medical records. Aayush Inquiry Pt receiving controlled substance: No Vital Signs: 05/13/24 05:33 05/13/24 06:00 05/13/24 06:27 Temperature 97.5 F L 97.5 F L Temperature Source Oral Oral Pulse Rate 77 66 Pulse Rate [Radial] 70 Respiratory Rate 18 18 Blood Pressure 145/96 H 145/96 H Blood Pressure [Right Arm] 141/86 H Blood Pressure Mean 123 Blood Pressure Mean [Right Arm] 104 Blood Pressure Source Automatic Cuff Blood Pressure Source [Right Arm] Automatic Cuff Blood Pressure Position Sitting Blood Pressure Position [Right Arm] Sitting 02 Sat by Pulse Oximetry 98 96 Oxygen Delivery Method Room Air Room Air Lab Data Lab results reviewed: Yes I reviewed the patient's lab results. Orders (Tests/Meds): ED MEDICATIONS Discontinued Medications Generic Name Dose Route Start Last Admin Trade Name Elkin PRN Reason Stop Dose Admin Oxymetazoline HCl 1 ml 05/13/24 05:35 05/13/24 05:37 Oxymetazoline Nasal [place] 0.05% 15ml NS 05/13/24 05:36 1 ml ONCE ONE Administration Medical Decision Narrative: In summary, this patient is a 69-year-old male presenting to the Emergency Department for evaluation of epistaxis. Differential diagnoses considered include but are not limited to anterior epistaxis, posterior epistaxis, nasal polyp. Ruling out the most morbid conditions drove assessment. On exam, the patient is well-appearing with reassuring vital signs on cardiac telemetry. He has bleeding from his right nostril, but none from the left. He has some clotted blood with a very slow ooze upon arrival. I advised that he blow the clot out, sprayed Afrin in his nose, and applied a nasal clamp. Will leave the clamp in place for 15 minutes to determine whether or not hemostasis is achieved. On subsequent reassessments, patient's nose remained hemostatic after this. Given his bleeding is stopped, I feel that he is appropriate for discharge home. He was given instructions for supportive management of nosebleeds at home as well as instructions for close follow-up with ENT and his primary care provider. He was discharged with strict return precautions after all questions were answered. Critical Care Critical Care Time Critical Care Time: No
[2024-05-13 06:00] VITALS: BP 145/96; PULSE 77; O2SAT 96
--- NOTE | 2024-05-13 06:05 | PC.NURSE ---
DR ANGUIANO AT BEDSIDE TO REEVALUATE PT
--- NOTE | 2024-05-13 06:26 | PC.NURSE ---
DR ANGUIANO AT BEDSIDE TO UPDATE PT AND
[2024-05-13 06:27] VITALS: BP 145/96; PULSE 66; RESP 18; TEMP 36.4; O2SAT 98
== END 2024-05-13 06:31 | disposition home or self-care (01) ==
PROVIDERS: Emergency Provider Emergency Medicine; PCP Internal Medicine
DX: R04.0 Epistaxis (principal)
CPT/HCPCS: 99283

== ENCOUNTER 2024-05-15 08:46 | Outpatient (CLI) | payer MEDICARE, OTHER, SELFPAY ==
[2024-05-15 08:51] LABS: Adenovirus F 40/41, stool Not Detected (NotDetected); Astrovirus Not Detected (NotDetected); Campylobacter Not Detected (NotDetected); Cryptosporidium Not Detected (NotDetected); Cyclospora Cayetanesis Not Detected (NotDetected); Entamoeba histolytica Not Detected (NotDetected); Enteroaggregative E coli Not Detected (NotDetected); Enteropathogenic E coli Not Detected (NotDetected); Enterotoxigenic E coli Not Detected (NotDetected); Giardia lamblia Not Detected (NotDetected); Norovirus Not Detected (NotDetected); Plesimonas Shigalloides, PCR Not Detected (NotDetected); Rotavirus A Not Detected (NotDetected); Salmonella, PCR Not Detected (NotDetected); Sapovirus Not Detected (NotDetected); Shiga-like toxin E coli Not Detected (NotDetected); Shigella Enterovasive E coli Not Detected (NotDetected); Vibrio Cholerae Not Detected (NotDetected); Vibrio, PCR Not Detected (NotDetected); Yersinia Entercolitica, PCR Not Detected (NotDetected)
[2024-05-15 14:21] LABS: Clostridium Difficile A/B, PCR Detected (NotDetected)
== END 2024-05-15 23:59 | disposition home or self-care (01) ==
LOC: LAB 08:47
PROVIDERS: PCP Internal Medicine; Visit Provider Internal Medicine
DX: R19.7 Diarrhea, unspecified (principal)
CPT/HCPCS: 87506

== ENCOUNTER 2024-07-09 15:39 | Emergency (ER) | payer MEDICARE, OTHER, SELFPAY ==
[2024-07-09 15:46] VITALS: BP 143/80; PULSE 98; O2SAT 95
[2024-07-09 15:48] VITALS: BP 143/80; PULSE 87; RESP 18; TEMP 36.6; O2SAT 95; BMI 28.5
--- NOTE | 2024-07-09 15:55 | XR_ITS ---
FINAL REPORT CLINICAL HISTORY: fall, hit L knee/espino COMPARISON: None FINDINGS: Two views of the left knee were obtained. There is no evidence of fracture or dislocation. The bony alignment is normal. Mild degenerative change is present. There is no evidence of joint effusion. No localized soft tissue abnormality is seen. There is no evidence of foreign body. IMPRESSION: No acute abnormality identified. Reviewed, Interpreted and Dictated by Sriram Schaffer III, MD Transcribed by Darcie Pompa Authenticated and [facility]
--- NOTE | 2024-07-09 15:55 | XR_ITS ---
FINAL REPORT CLINICAL HISTORY: fall, hit knee, espino with abrasion COMPARISON: None FINDINGS: LEFT TIBIA FIBULA: There is no acute fracture or dislocation. The joint spaces are intact. There is no soft tissue abnormality. IMPRESSION: No acute bony abnormality Reviewed, Interpreted and Dictated by Sriram Schaffer III, MD Transcribed by Darcie Pompa Authenticated and [facility]
[2024-07-09 16:00] VITALS: BP 133/78; PULSE 89; O2SAT 93
--- NOTE | 2024-07-09 16:04 | ED_ITS ---
Discharge Plan Disposition Patient Disposition: Home, Self-Care Condition: Good Chief Complaint: Fall Prescriptions Prescriptions: No Action valacyclovir 500 mg tablet PO DAILY Patient Comments: TAKE 1 TABLET BY MOUTH ONCE DAILY mupirocin 2 % ointment 1 applic topical BID Qty: 22 0RF [place] Saline 0.65 % aerosol,spray 1 spray intranasal BID PRN (Reason: dry nasal passages) Qty: 50 0RF Entresto 24-26 mg tablet 1 tab PO BID 30 Days Qty: 60 5RF albuterol sulfate 90 mcg/actuation HFA aerosol inhaler 2 inh inhalation QID PRN (Reason: shortness of breath or wheezing) 90 Days Qty: 8.5 2RF atorvastatin 40 mg tablet See Rx Instructions .ROUTE .COMPLEX Qty: 90 4RF Dose Instruction: TAKE 1 TABLET BY MOUTH AT BEDTIME EVERY NIGHT Rx Instructions: TAKE 1 TABLET BY MOUTH AT BEDTIME EVERY NIGHT Jardiance 25 mg tablet See Rx Instructions .ROUTE .COMPLEX Qty: 90 1RF Dose Instruction: TAKE 1 TABLET BY MOUTH ONCE DAILY IN THE MORNING Rx Instructions: TAKE 1 TABLET BY MOUTH ONCE DAILY IN THE MORNING triamcinolone acetonide 0.1 % cream 1 applic topical TID PRN (Reason: rash) Qty: 80 1RF tizanidine 4 mg capsule 4 mg PO Q8H Qty: 30 3RF famotidine [Pepcid] 20 mg Tablet 20 mg PO BID tamsulosin 0.4 mg capsule 0.4 mg PO HS Patient Comments: TAKE 1 CAPSULE BY MOUTH ONCE DAILY AT BEDTIME Referrals Follow up/Referrals: Eddi Gomez MD [Primary Care Provider] - See instructions Activity Restrictions/Add. Instructions Additional Instructions/Restrictions: Keep your abrasion clean and dry you can apply gentle ointment to it a couple of times a day. Follow-up closely with your primary care provider for continued evaluation and guidance on your medications and return for any new or worsening symptoms. Clinical Impressions Clinical Impression: Contusion of left lower leg, initial encounter Instructions Patient Instructions: How to Prevent Falls, DI for Contusion Print Language Print Language: Danish Discharge ED Provider: Angela Iqbal Adult HPI General Chief complaint: Fall Stated complaint: AO 07-09-24 fell in a pond hit left leg on rock Time Seen by Provider: 07/09/24 15:48 Mode of Arrival: Ambulatory Source of Information: Patient and Spouse Limitations: No Limitations Description of Symptoms (Recalled from ER Triage Doc. by RN): Pt. states he was walking [place] a [place] and slipped and his left espino hit a rock. He states he is able to ambulate without pain but is concerned with the swelling. History of Present Illness HPI narrative: Patient is a 69-year-old male with past medical history CAD status post PCI, type 2 diabetes, hyperlipidemia, CHF presenting with espino injury. He states that he was getting out of [place] today prior to arrival and he lost his footing on the bank and getting out, was able to turn over but scraped his left espino on a rock. He is unsure of his last tetanus. Denies any other injuries including did not hit his head, lose consciousness I denies any chest pain, shortness of breath, abdominal pain, nausea, vomiting. He does note that he had been getting nosebleeds for which he is following with ENT and had stopped takin g the Plavix that he was prescribed for his stent, he states he just recently stopped taking this medication. Related Data Home Medications ?Medication ?Instructions ?Recorded ?Confirmed famotidine 20 mg tablet (Pepcid) 20 mg PO BID Reflux/Acid reflux 11/16/22 06/18/24 tamsulosin 0.4 mg capsule 0.4 mg PO HS prostate 01/22/23 06/18/24 valacyclovir 500 mg tablet mg PO DAILY 05/22/24 06/18/24 Previous Rx's ?Medication ?Instructions ?Recorded sacubitril 24 mg-valsartan 26 mg 1 tab PO BID 30 days #60 tabs 02/20/23 tablet (Entresto) albuterol sulfate 90 mcg/actuation 2 inh inhalation QID PRN shortness 07/03/23 aerosol inhaler of breath or wheezing 90 days #8.5 grams atorvastatin 40 mg tablet See Rx Instructions .Route 08/27/23 .COMPLEX #90 tabs mupirocin 2 % topical ointment 1 applic topical BID #22 grams 05/22/24 sodium chloride 0.65 % nasal spray 1 spray intranasal BID PRN dry 05/22/24 aerosol ([place] Saline) nasal passages #50 mL empagliflozin 25 mg tablet See Rx Instructions .Route 06/16/24 (Jardiance) .COMPLEX #90 tabs triamcinolone acetonide 0.1 % 1 applic topical TID PRN rash #80 06/20/24 topical cream grams tizanidine 4 mg capsule 4 mg PO Q8H #30 caps 07/09/24 Allergies Allergy/AdvReac Type Severity Reaction Status Date / Time pseudoephedrine AdvReac Severe Palpitation Verified 06/18/24 09:13 s [facility] Disclaimer: The information contained in this section may have been updated after the patient was seen, as this information can be updated by other users. Medical History (Updated 07/09/24 @ 17:14 by Angela Iqbal MD) Inflammation of nasal septum Precancerous skin lesion Nasal septum ulceration HLD (hyperlipidemia) DDD (degenerative disc disease) Sciatica Heart failure COPD exacerbation HFrEF (heart failure with reduced ejection fraction) Left-sided low back pain with sciatica Lumbar nerve root impingement Lumbar spinal stenosis Degenerative disc disease, lumbar Bleeding nose Dyspnea Abnormal computerized axial tomography of chest Diastolic dysfunction Coronary artery disease Class 1 obesity Ventricular tachycardia Allergic rhinitis Encounter for screening for malignant neoplasm of lung in current smoker with 30 pack year history or greater COPD (chronic obstructive pulmonary disease) Pulmonary emphysema Stopped smoking with greater than 30 pack year history Dyspnea on exertion Lung nodule Hx of acute arthritis Hx of gastroesophageal reflux (GERD) Supraventricular tachycardia Surgical History History of permanent cardiac pacemaker placement History of cardiac defibrillator placement History of heart artery stent History of colonoscopy Family History Other Cancer Social History Smoking Status: Never smoker smoking status stop date: stopped 14 years ago second hand exposure: No alcohol intake: current substance use type: denies use current occupational status: other Travel in the last 8 weeks: None adopted: No caregiver/support person: Yes (Doreen Powell) foster care: No household members: spouse housing: house lives independently: Yes marital status: number of children: 6 number of grandchildren: 14 education level: high school service: No intermediate: No current occupation: [employer] current occupational exposures/hazards: Yes caffeine: Yes physical activity: none frequency: 1-2 times per week duration: 15-30 minutes/day duane/mu-ism: Mormonism do you feel safe at home: Yes victim of physical abuse: No victim of emotional abuse: No victim of sexual abuse: No would you like helpful sources: No ROS Obtained: Yes Systems reviewed as appropriate & no additional complaints except as documented Physical Exam General General appearance: alert and in no apparent distress Head Head exam: atraumatic and normocephalic Neck Neck exam: Present normal inspection and full ROM; Absent tenderness Chest Chest inspection: Present normal inspection and symmetric chest wall rise Respiratory Respiratory exam: Present normal lung sounds bilaterally; Absent respiratory distress Cardiovascular Cardiovascular exam: Present regular rate and normal rhythm Abdominal Exam Abdominal exam: Present soft; Absent tenderness Extremities Exam Extremities exam: Present normal inspection and other (Does have abrasion over anterior left espino with some hematoma but no bony abnormalities, distal extremity neurovascularly intact and knee without effusion or ecchymosis or tenderness to palpation) Neurological Exam Neurological exam: Present alert and oriented X3 Medical Decision Making Medical Records Medical records reviewed: Yes I reviewed the patient's medical records. Aayush Inquiry Pt receiving controlled substance: No Vital Signs: 07/09/24 15:46 07/09/24 15:48 07/09/24 16:00 Temperature 97.8 F Temperature Source Oral Pulse Rate 98 H 89 Pulse Rate [Right Brachial] 87 Respiratory Rate 18 Blood Pressure 143/80 H 133/78 Blood Pressure [Right Arm] 143/80 H Blood Pressure Mean Blood Pressure Mean [Right Arm] 101 Blood Pressure Source [Right Arm] Automatic Cuff Blood Pressure Position [Right Arm] Sitting 02 Sat by Pulse Oximetry 95 95 93 L Oxygen Delivery Method Room Air 07/09/24 16:30 Temperature Temperature Source Pulse Rate Pulse Rate [Right Brachial] Respiratory Rate Blood Pressure 135/94 H Blood Pressure [Right Arm] Blood Pressure Mean 104 Blood Pressure Mean [Right Arm] Blood Pressure Source [Right Arm] Blood Pressure Position [Right Arm] 02 Sat by Pulse Oximetry Oxygen Delivery Method Orders (Tests/Meds): ED MEDICATIONS Discontinued Medications Generic Name Dose Route Start Last Admin Trade Name Freq PRN Reason Stop Dose Admin Tetanus/Reduced Diphtheria/Acell Pertussis 0.5 ml 07/09/24 15:55 07/09/24 16:07 Tet/Diphth/Pert-Adult 0.5ml Syringe IM 07/09/24 15:56 0.5 ml .ONCE ONE Administration ORDERS Category Date Time Status Knee XR left 2 views [XR knee LT 2V] Stat Exams 07/09/24 15:55 Completed Tibia/fibula XR left 2 views [XR tibia fibula LT 2V] Exams 07/09/24 15:55 Taken Stat Medical Decision Narrative: Patient is a 69-year-old male with past medical history of type 2 diabetes, hyperlipidemia, CHF, CAD status post PCI presenting with left espino pain after fall. Patient reports a fall immediately prior to arrival when trying [place] get [place] of [place] with subsequent injury only to the espino, did not hit his head or lose consciousness and actually discontinue his blood thinner Plavix recently for his PCI. He denies any other injury and has ambulated since but has an abrasion over that his left espino and was concerned about the swelling. He does have a hematoma over left espino with overlying abrasion, no laceration and neurovascularly intact otherwise. Will obtain imaging of this, update tetanus. I further discussed continuing his Plavix given stenting as he would be at risk for in-stent stenosis and discontinuing this medication, he does already have this medication at home and is considering restarting it after our risk-benefit discussion. Tetanus was updated, x-ray lower extremity and knee showing no acute abnormality. We discussed care of the wound which was dressed with a nonadherent dressing while in the emergency department and cleaned by nursing staff. On further review of his chart patient is unsure if it was Plavix that he was supposed to be taking, his care has been through [place]. He is going to call his primary care provider regarding further instruction regarding this. Otherwise discharged in stable condition. Critical Care Critical Care Time Critical Care Time: No
[2024-07-09] MEDS: TET/DIPHTH/PERT-ADULT 0.5ML SYRINGE 0.5 ML IM (16:07)
[2024-07-09 16:30] VITALS: BP 135/94
--- NOTE | 2024-07-09 16:47 | PC.NURSE ---
Rounded on PT. PT stated he would like a glass of water, Tech got PT a glass. PT stated he doesn't need anything else at this time.
--- NOTE | 2024-07-09 17:13 | PC.NURSE ---
telfa/ tegaderm dressing placed over left knee abrasion.
[2024-07-09 17:25] VITALS: BP 123/61; PULSE 75; RESP 20; TEMP 36.7; O2SAT 96
== END 2024-07-09 17:26 | disposition home or self-care (01) ==
PROVIDERS: Emergency Provider Emergency Medicine; PCP Internal Medicine
DX: S80.12XA Contusion of left lower leg, initial encounter (principal); W01.198A Fall on same level from slipping, tripping and stumbling with subsequent striking against other object, initial encounter; Z23 Encounter for immunization
CPT/HCPCS: 73560; 73590; 90471; 90715; 99283

== ENCOUNTER 2024-08-13 21:56 | Outpatient (CLI) | payer MEDICARE, OTHER, SELFPAY ==
[2024-08-13 22:36] LABS: Basophils # 0.1 K/mm3 (0-0.2); Basophils % 1.3 % (0.1-2.0); Eosinophils # 0.4 K/mm3 (0.0-0.4); Eosinophils % 5.3 % (0.1-12.0); Hematocrit 51.6 % (42.0-52.0); Hemoglobin 17.6 g/dL (14.1-18.0); Mean Corpuscular HGB Conc 34.2 g/dL (31.8-35.4); Mean Corpuscular Hemoglobin 31.1 pg (27.0-31.2); Mean Corpuscular Volume 91.1 fl (80-94); Mean Platelet Volume 9.8 fl (7.4-10.4); Monocytes # 0.5 K/mm3 (0.1-1.0); Monocytes % 6.9 % (1.7-9.3); Neutrophils # 4.7 K/mm3 (1.8-7.8); Neutrophils % 60.6 % (37.0-80.0); Platelet Count 193 K/mm3 (142-424); Red Blood Count 5.67 M/mm3 (4.60-6.20); Red Cell Distribution Width 14.7 % (11.5-17.5); White Blood Count 7.8 K/mm3 (4.8-10.8)
[2024-08-13 23:02] LABS: Alanine Aminotransferase 56 U/L (12-78); Albumin Level 4.6 g/dl (3.5-5.0); Albumin/Globulin Ratio 1.5 (1.1-1.8); Alkaline Phosphatase 86 U/L (38-126); Anion Gap 10.7 mEq/L (5-15); Aspartate Amino Transferase 45 U/L (17-59); Bilirubin,Total 1.1 mg/dl (0.2-1.3); Blood Urea Nitrogen 14 mg/dl (9-20); Calcium 9.8 mg/dl (8.4-10.2); Carbon Dioxide 25 mmol/L (22.0-30.0); Chloride 106 mmol/L (98-107); Chol/HDL Ratio 4.6 (1-3.5); Cholesterol 183 mg/dl (140-200); Estimated Glomerular Filt Rate 96 ml/min (>60); GFR (African American) 116 ML/MIN (>60); Glucose 88 mg/dl (74-100); HDL Cholesterol 40 mg/dl (40-60); Potassium 4.7 mmoL/L (3.5-5.1); Sodium 137 mmol/L (136-145); Total Protein,Serum 7.6 g/dl (6.3-8.2); Triglycerides 92 mg/dl (30-150); VLDL Cholesterol 18 mg/dL (0-40)
[2024-08-13 23:13] LABS: Direct LDL Cholesterol 118.02 mg/dL (100-129)
[2024-08-13 23:14] LABS: Creatinine,Urine Random 88 mg/dL (Not Estab.)
[2024-08-13 23:15] LABS: Hemoglobin A1C 5.2 % (4.0-6.0); Microalbumin < 6.000 mg/L (0-16.7)
== END 2024-08-13 23:59 | disposition home or self-care (01) ==
LOC: LAB.DROPOF 21:57
PROVIDERS: PCP Internal Medicine; Visit Provider Internal Medicine
DX: I50.32 Chronic diastolic (congestive) heart failure (principal); E78.5 Hyperlipidemia, unspecified; I25.10 Atherosclerotic heart disease of native coronary artery without angina pectoris; E11.59 Type 2 diabetes mellitus with other circulatory complications
CPT/HCPCS: 80053; 80061; 82043; 82570; 83036; 85025

== ENCOUNTER 2024-09-30 16:36 | Outpatient (CLI) | payer MEDICARE, OTHER, SELFPAY ==
[2024-09-30 16:19] LABS: Basophils # 0.1 K/mm3 (0-0.2); Basophils % 1.2 % (0.1-2.0); Eosinophils # 0.4 K/mm3 (0.0-0.4); Eosinophils % 3.1 % (0.1-12.0); Hematocrit 53.4 % (42.0-52.0); Lymphocytes % 17.5 % (10-50); Mean Corpuscular HGB Conc 34.5 g/dL (31.8-35.4); Mean Corpuscular Hemoglobin 30.1 pg (27.0-31.2); Mean Corpuscular Volume 87.4 fl (80-94); Monocytes % 9.1 % (1.7-9.3); Neutrophils # 7.8 K/mm3 (1.8-7.8); Neutrophils % 69.1 % (37.0-80.0); Platelet Count 207 K/mm3 (142-424); Red Blood Count 6.12 M/mm3 (4.60-6.20); White Blood Count 11.3 K/mm3 (4.8-10.8)
[2024-09-30 16:31] LABS: Hemoglobin 18.4 g/dL (14.1-18.0)
== END 2024-09-30 23:59 | disposition home or self-care (01) ==
LOC: LAB.DROPOF 16:36
PROVIDERS: PCP Internal Medicine; Visit Provider Internal Medicine
DX: R10.32 Left lower quadrant pain (principal)
CPT/HCPCS: 85025

== ENCOUNTER 2024-10-01 09:47 | Outpatient (CLI) | payer MEDICARE, OTHER, SELFPAY ==
--- NOTE | 2024-10-01 09:47 | CT_ITS ---
FINAL REPORT TECHNIQUE: Axial images through the abdomen and pelvis were performed without contrast. This study was performed with techniques to keep radiation doses as low as reasonably achievable, (ALARA). Individualized dose reduction techniques using automated exposure control or adjustment of mA and/or kV according to the patient's size were employed. CLINICAL HISTORY: left lower quadrant abdominal pain x2 weeks, worsening COMPARISON: 12/11/2023 FINDINGS: ABDOMEN: There is mild bibasilar atelectasis or scar. The heart size is normal. There is fatty infiltration of the liver. Several gallstones are seen in the gallbladder. The spleen is normal. No adrenal mass is identified. The aorta is normal in caliber. There is no significant free fluid or adenopathy. There is a 17 mm low-attenuation mass in the upper right kidney which is stable consistent with a cyst. There is no nephrolithiasis. There is no hydronephrosis. PELVIS: The appendix is normal. There is a small umbilical hernia containing fat. The urinary bladder is unremarkable. There is no significant free fluid or adenopathy. IMPRESSION: Cholelithiasis. Stable right renal cyst. Reviewed, Interpreted and Dictated by Sriram Schaffer III, MD Transcribed by Germaine Hamlin Authenticated and [facility]
== END 2024-10-01 23:59 | disposition home or self-care (01) ==
LOC: RAD 09:47
PROVIDERS: PCP Internal Medicine; Visit Provider Internal Medicine
DX: R10.32 Left lower quadrant pain (principal)
CPT/HCPCS: 74176

== ENCOUNTER 2025-07-13 16:55 | Outpatient (CLI) | payer MEDICARE, OTHER, SELFPAY ==
[2025-07-13 17:49] LABS: Hematocrit 50.5 % (42.0-52.0); Hemoglobin 17.9 g/dL (14.1-18.0); Immature Granulocytes % 0.3 %; Mean Corpuscular HGB Conc 35.4 g/dL (31.8-35.4); Mean Corpuscular Hemoglobin 30.2 pg (27.0-31.2); Mean Corpuscular Volume 85.3 fl (80-94); Nucleated Red Blood Cells % 0 %; Platelet Count 203 K/mm3 (142-424); Red Blood Count 5.92 M/mm3 (4.60-6.20); Red Cell Distribution Width-SD 41.2 fL; White Blood Count 9.4 K/mm3 (4.8-10.8)
[2025-07-13 18:21] LABS: Alanine Aminotransferase 45 U/L (12-78); Albumin Level 4.8 g/dl (3.5-5.0); Albumin/Globulin Ratio 1.5 (1.1-1.8); Alkaline Phosphatase 90 U/L (38-126); Anion Gap 15.2 mEq/L (5-15); Aspartate Amino Transferase 36 U/L (17-59); Bilirubin,Total 1.1 mg/dl (0.2-1.3); Blood Urea Nitrogen 17 mg/dl (9-20); Calcium 9.9 mg/dl (8.4-10.2); Carbon Dioxide 26 mmol/L (22.0-30.0); Chloride 104 mmol/L (98-107); Cholesterol 182 mg/dl (140-200); Creatinine,Serum 0.80 mg/dl (0.66-1.25); Estimated Glomerular Filt Rate 96 ml/min (>60); GFR (African American) 116 ML/MIN (>60); Globulin 3.3 g/dL (1.3-3.2); Glucose 101 mg/dl (74-100); HDL Cholesterol 49 mg/dl (40-60); Potassium 4.2 mmoL/L (3.5-5.1); Sodium 141 mmol/L (136-145); Total Protein,Serum 8.1 g/dl (6.3-8.2); Triglycerides 65 mg/dl (30-150)
[2025-07-13 19:11] LABS: Hemoglobin A1C 7.0 % (4.0-6.0)
--- OUTSIDE RECORDS SUMMARY | 2025-07-14 09:18 | XMS_ITS | Encounter Summary ---
Author Organization [place] [address] Care Team Providers Care Computer Systems Analyst Name Role Phone Unavailable Primary Care Provider Unavailabl e Encounter Details Date Type Department Care Team (Late Contact Info) Description 05/28/2025 Orders Only [facility] [address] [facility] [address] [place] [phone] Maykel Ríos MD [address] [place] [address] Vector Remote Device Social History Tobacco Use Types Packs/Day Years Used Date Smoking Tobacco: Former Cigarettes 1 40 1 969 - 2008 Smokeless Tobacco: Never Alcohol Use Standard Drinks/Week Comments Not Currently 0 (1 standard drink = 0.6 oz pur e alcohol) Sex and Gender Information Value Date Recorded Sex Assigned at Not on file Legal Sex Male 1:21 PM EDT Gender Identity Not on file Sexual Orientation Not on file documented as of this encounter Plan of Treatment Upcoming Encounters Date Type Department Care Team (Late Contact Info) Description 03/26/2026 10:00 AM EDT Office Visit [facility] [address] [facility] [address] [place] [address] 03/26/2026 10:30 AM EDT Office Visit [facility] [address] [facility] [address] [place] [address] Maria Del Rosario Corcoran APRN [address] [place] [address] documented as of this encounter Procedures Procedure Name Priority Date/Time Associated Diagnosis Comments [place] INTERROGATION EVAL REMOTE </90 D 1/2/IN CLASSROOM TUTOR LD DFB Routine 05/28/2025 12:00 AM EDT Vector Remote Device documented in this encounter Results * VECTOR REMOTE DEVICE (05/28/2025 12:00 AM EDT) 05/28/2025 Narrative [facility] - 05/28/2025 12:00 AM EDT No significant episodes. AT/AF [place]: <1%. Mode: DDD. AP: 0.1%. EMPLOYMENT APPEALS EXAMINER: 0.4%. Normal device function. us Maykel Ríos MD [facility] CATH ORDERAB LES Final Result [facility] [address] [place] [address] documented in this encounter Visit Diagnoses Diagnosis Vector Remote Device documented in this encounter Additional Health Concerns Assessment Noted Time A fall risk assessment has been complete d for the patient 03/26/2025 10:15 AM EDT documented as of this encounter
--- OUTSIDE RECORDS SUMMARY | 2025-07-14 09:18 | XMS_ITS | Clinical Summary ---
Author Organization [facility] [place] Address [address] [facility] [address] [place] [address] Phone Care Team Providers Care Trim Master Operator Name Role Phone Unavailable Primary Care Provider Unavailabl e Allergies Active Allergy Reactions Criticality Noted Date Comments Codeine Nausea And Vomiting 01/30/2023 Pseudoephedrine Hcl Other (See Comments) 2022 irregular beats Medications aspirin 81 mg Oral Tablet, Delayed Release (E.C.) Take 81 mg by mouth daily. 01/23/2023 Active atorvastatin (LIPITOR) 40 mg Oral Tablet Take 40 mg by mouth nightly. 01/23/2023 Active valACYclovir (VALTREX) 500 mg Oral Tablet TAKE 1 TABLET BY MOUTH ONCE DAILY FOR 90 DAYS 01/16/2023 Active famotidine (PEPCID) 20 mg Oral Tablet Take 20 mg by mouth daily. 01/02/2023 Active empagliflozin (JARDIANCE ORAL) Take 25 mg by mouth. Active sacubitriL-valsa rtan (ENTRESTO) 24-26 mg Oral Tablet Take by mouth 2 times daily. Active clopidogreL (PLAVIX) 75 mg Oral Tablet Take by mouth daily. Active albuterol (PROVENTIL HFA;VENTOLIN HFA) 90 mcg/actuation Inhl HFA Aerosol Inhaler as needed. 07/03/2023 Active CIPRO 500 mg Oral Tablet Take 500 mg by mouth every 12 hours. 03/01/2025 Active meloxicam (MOBIC) 15 mg Oral Tablet 03/24/2025 Active metoprolol succinate (TOPROL-XL) 50 mg Oral Tablet Sustained Release 24 hrIndications:SV T (supraventricula r tachycardia),Timmy ymorphic ventricular tachycardia (HCC),Coronary artery disease involving crow coronary artery of crow heart without angina pectoris Take 1 Tablet by mouth 2 times daily. 180 Tablet 3 03/26/2025 Active Active Problems Problem Noted Date Diagnosed Date Abnormal computerized axial tomography of chest 03/26/2025 Allergic rhinitis 03/26/2025 Bleeding nose 03/26/2025 Class 1 obesity 03/26/2025 COPD (chronic obstructive pulmonary disease) Coronary atherosclerosis 03/26/2025 Diastolic dysfunction 03/26/2025 Dyspnea on exertion 03/26/2025 Encounter for screening for malignant neoplasm of lung in current smoker with 30 pack year history or greater 03/26/2025 HLD (hyperlipidemia) 03/26/2025 Lower urinary tract symptoms due to benign prostatic hyperplasia 03/26/2025 Lung nodule 03/26/2025 Renal colic on left side 03/26/2025 Stopped smoking with greater than 30 pack year h istory 03/26/2025 Ureteral calculus, left 03/26/2025 Ureteral stone with hydronephrosis 03/26/2025 History of cardiac radiofrequency ablation for S VT 02/28/2023 12/21/2023 Dual ICD (implantable cardioverter-defibrillator ) in place 02/28/2023 Overview (03/14/2023): Negrete Dual ICD implanted 02/28/[address] Ríos Polymorphic ventricular tachycardia 02/28/2023 Overview (02/28/2023): Per procedure log 02/28/23 TC ABT D ICD SVT (supraventricular tachycardia) 01/30/2023 Encounters Date Type Department Care Team Description 05/28/2025 Orders Only [facility] [address] [facility] [address] [place] [phone] Maykel Ríos MD Vector Remote Device from Last 3 Months Surgical History Surgery Date Site/Laterality Comments INTERNAL CARDIOVERTER DEFIBRILLATOR (ICD) IMPLANT 02/28/2023 N/A Surgeon: Maykel Ríos MD; Location: ED CARDIAC NURSING ASSISTANT IMAGING; Service: Cardiac Medical devices from this surgery are in the Medical Devices section. Medical History Medical History Date Comments SVT (supraventricular tachycardia) 01/30/2023 CAD (coronary artery disease) Heart attack (HCC) 01/22/2021 H/O heart artery stent 12/2022 Arrhythmia Chronic obstructive pulmonary disease (HCC) Social History Tobacco Use Types Packs/Day Years Used Date Smoking Tobacco: Former Cigarettes 1 40 1 969 - 2009 Smokeless Tobacco: Never Alcohol Use Standard Drinks/Week Comments Not Currently 0 (1 standard drink = 0.6 oz pur e alcohol) Sex and Gender Information Value Date Recorded Sex Assigned at Not on file Legal Sex Male 1:21 PM EDT Gender Identity Not on file Sexual Orientation Not on file Obstetrics History Last Filed Vital Signs Vital Sign Reading Time Taken Comments Blood Pressure 120/90 03/26/2025 10:16 AM EDT Pulse 67 03/26/2025 10:16 AM EDT Temperature 36.7 C (98 F) 04/03/2023 11:07 AM EDT Respiratory Rate 14 04/03/2023 11:07 AM EDT Oxygen Saturation 97% 03/26/2025 10:16 AM EDT Inhaled Oxygen Concentration - - Weight 97.5 kg (215 lb) 03/26/2025 10:16 AM EDT Height 182.9 cm (6') 04/03/2023 11:07 AM EDT Body Mass Index 29.16 04/03/2023 11:07 AM EDT Plan of Treatment Upcoming Encounters Date Type Department Care Team (Late st Contact Info) Description 03/26/2026 10:00 AM EDT Office Visit [facility] [address] [facility] [address] [place] [phone] 03/26/2026 10:30 AM EDT Office Visit [facility] [address] [facility] [address] [place] [address] Maria Del Rosario Corcoran, FRANKI [address] [place] [address] Health Maintenance Due Date Last Done Comments Wellness Exam Medicare 1958 Hepatitis C Screening 1973 Pneumococcal Vaccine 50+ (1 of 2 - PCV) 1974 Cologuard 2000 Colon Cancer Screening 2000 Colonoscopy 2000 FIT 2000 Sigmoidoscopy 2000 Virtual Colonography 2000 RSV or 60+ (1 - Ris k 60-74 years 1-dose series) 2015 Zoster (2 of 3) 09/22/2016 07/28/2016 AAA Screening 2020 COVID-19 Vaccine (3 - 2024-2 6 season) 2025 02/09/2021, 01/12/2021 Influenza Vaccine (#1) 2025 , 10/29/2017, 07/28/2016 DTaP/TDaP/Td (2 - Td or Tdap) 07/09/2034 07/09/2024 Low Dose Lung Cancer Screening Discontinued 02/28/2023 Hepatitis B Vaccine Aged Out No longe r eligible based on patient's age to complete this topic Meningococcal B Vaccine Aged Out No l onger eligible based on patient's age to complete this topic Medical Devices Implanted Type Area Restaurant Manager Device Identifier Shelf Expiration Date Model / Serial / Lot Defibrillator Pamela Posey Icd - [id number] Implanted:Qty: 1 on 02/28/2023 by Maykel Ríos MD at [facility] ICD Dual Chamber [facility]:VASC DEV [id number] 12/26/2024 [id number] / [id number] / Lead Defib Optisure Df-4 58cm Impl 8fr Sgl Coil - [id number] Implanted:Qty: 1 on 02/28/2023 by Maykel Ríos MD at PSY[facility] Lead [facility]:CARDIAC RHYM MGMT [id number] 10/28/2025 [id number] / [id number] / Lead Pcng 3pbz93ll Tendril Sts Impl Biplr Str Daniele Act Scr In - [id number] Implanted:Qty: 1 on 02/28/2023 by Maykel Ríos MD at [facility] Lead [facility]:CARDIAC RHYM MGMT [id number] 12/26/2025 [id number] / [id number] / Procedures Procedure Name Priority Date/Time Associated Diagnosis Comments [place] INTERROGATION EVAL REMOTE </90 D 1/2/DISTRICT MANAGER PRIMARY CARE SALES LD DFB Routine 05/28/2025 12:00 AM EDT Vector Remote Device CT CHEST HIGH RESOLUTION WO CONTRAST STAT 02/28/2023 4:31 PM EDT from Last 3 Months or Most Recently Relevant to Health Maintenance Results * VECTOR REMOTE DEVICE (05/28/2025 12:00 AM EDT) 05/28/2025 Narrative [facility] - 05/28/2025 12:00 AM EDT No significant episodes. AT/AF [place]: <1%. Mode: DDD. AP: 0.1%. GYMNASTIC COACH: 0.4%. Normal device function. us Maykel Ríos MD [facility] CATH ORDERAB LES Final Result [facility] 1 [place] [address] * CT CHEST HIGH RESOLUTION WO CONTRAST (02/28/2023 4:31 PM EDT) Anatomical Region Laterality Modality Chest Computed Tomogra phy 02/28/2023 4:31 PM EDT Impressions 02/28/2023 5:07 PM EDT 14 mm solitary lobulated solid nodule left upper lobe highly suspect for primary lung neoplasia. Code lung management Code lung management Note: Radiology results need to be interpreted within a comprehensive clinical context. If you have questions about the radiology report, please contact the office of the ordering clinician. Narrative 02/28/2023 5:[address] CHEST HIGH-RESOLUTION WITHOUT CONTRAST, 02/28/2023 4:31 PM CLINICAL HISTORY: -new nodule. COMPARISON: None. PROCEDURE COMMENTS: High-resolution CT chest per protocol. Multiplanar reconstructions. Dose 1 : CT DLP Total : 415.95 mGycm DLP Spiral Max : 362.53 mGycm Maximum CTDI Vol : 10.01 mGy FINDINGS: No mediastinal or hilar mass or adenopathy identified. Evidence of previous LAD stent. Slight elevation right diaphragm. Calcified gallstones in the gallbladder. Tracheobronchial tree is patent. There are centrilobular emphysematous changes. There is a well-circumscribed solid lobulated nodule in the left upper lobe measuring 14 mm. There is some posterior pleural thickening both lungs. There are some calcified granulomas in the right lower lobe. No evidence of interstitial lung disease. Linear densities in lung bases. Coronary artery calcification: Moderate. Incidental: Visible abdominal viscera are unremarkable. Procedure Note Moris Goodwin III, MD - 02/28/2023 CT CHEST HIGH-RESOLUTION WITHOUT CONTRAST, 02/28/2023 4:31 PM CLINICAL HISTORY: -new nodule. COMPARISON: None. PROCEDURE COMMENTS: High-resolution CT chest per protocol. Multiplanar reconstructions. Dose 1 : CT DLP Total : 415.95 mGycm DLP Spiral Max : 362.53 mGycm Maximum CTDI Vol : 10.01 mGy FINDINGS: No mediastinal or hilar mass or adenopathy identified. Evidence ofprevious LAD stent. Slight elevation right diaphragm. Calcified gallstones in the gallbladder. Tracheobronchial tree is patent. There are centrilobular emphysematous changes. There is awell-circumscribed solid lobulated nodule in the left upper lobe measuring 14 mm. There is some posterior pleural thickening both lungs. There are somecalcified granulomas in the right lower lobe. No evidence of interstitial lungdisease. Linear densities in lung bases. Coronary artery calcification: Moderate. Incidental: Visible abdominal viscera are unremarkable. IMPRESSION: 14 mm solitary lobulated solid nodule left upper lobe highly suspect for primary lung neoplasia. Code lung management Code lung management Note: Radiology results need to be interpreted within a comprehensiveclinical context. If you have questions about the radiology report, please contactthe office of the ordering clinician. Maykel Ríos MD [facility] ORDERABLES Final Result from Last 3 Months or Most Recently Relevant to Health Maintenance Insurance MEDICARE [place] PART A AND B [employer] INSURANCE [employer] MEDICARE [place] PART A AND B [employer] INS[employer]
--- OUTSIDE RECORDS SUMMARY | 2025-07-14 09:18 | XMS_ITS | Clinical Summary ---
Author Organization [employer] ([place], [place], [place], [place]) Address [address] [place] [address] Care Team Providers Care Retail Furniture Sales Name Role Phone Eddi Gomez MD Primary Care Provider [phone] Allergies No known active allergies Medications No known medications Social History Tobacco Use Types Packs/Day Years Used Date Smoking Tobacco: Never Passive Smoke Exposure: Never Smokeless Tobacco: Never Tobacco Cessation:Counseling Given: Not Answered Alcohol Use Standard Drinks/Week Comments Never 0 (1 standard drink = 0.6 oz pur e alcohol) Family and Community Support Answer Clayton e Recorded Help with Day to Day Activities Not on file 01/01/2024 Feeling Lonely or Isolated Not on file 12/31 Educational Attainment Answer Date Pranay rded Speak language other than Kazakh at home Not on file 01/01/2024 Want help with school or training Not on file 01/01/2024 Substance Use Answer Date Recorded Used prescription meds for non-medical reasons N ot on file 01/01/2024 Used illegal drugs past 12 months Not on file 01/01/2024 Sex and Gender Information Value Date Recorded Sex Assigned at Not on file Legal Sex Male 1:55 PM CDT Gender Identity Not on file Sexual Orientation Not on file Last Filed Vital Signs Vital Sign Reading Time Taken Comments Blood Pressure 130/94 12/24/2024 8:58 PM EST Pulse 90 12/24/2024 8:58 PM EST Temperature 36.7 C (98 F) 12/24/2024 8:58 PM EST Respiratory Rate 18 12/24/2024 8:58 PM EST Oxygen Saturation 99% 12/24/2024 8:58 PM EST Inhaled Oxygen Concentration - - Weight 95.3 kg (210 lb) 12/24/2024 8:58 PM EST Height 182.9 cm (6') 12/24/2024 8:58 PM EST Body Mass Index 28.48 12/24/2024 8:58 PM EST Plan of Treatment Health Maintenance Due Date Last Done Comments CT Colonography 1955 Colonoscopy 1955 Colorectal Cancer Screening 1955 FOBT/FIT 1955 Fit-DNA (Cologuard) 1955 Sigmoidoscopy 1955 Depression Screening (12+) 1967 Hepatitis C Screening 1973 DTAP/TDAP/TD VACCINES (1 - Tdap) 1974 Pneumococcal 50+ years (1 of 1 - PCV) 2005 Shingles Vaccine (Zoster) (2 of 2) 09/22/20162015 Medicare Initial AWV [id number] 04/29/2021 Falls Risk Screening 10/29/2024 COVID-19 VACCINE (3 - season) 2025, 01/12/2021 Influenza Vaccine (#1) 2025 Tobacco Cessation Counseling and Screening (12+) 12/24/2025 12/24/2024 Respiratory Syncytial Virus (RSV) Adult or (1 - 1-dose 75+ series) 2030 Insurance MEDICARE PART A B Care Teams Retail Furniture Sales Relationship Specialty Start Date End Date Eddi Gomez MD [address] [place] [address] [place] [address] PCP - General General Internal Medicine 01/17/24
--- OUTSIDE RECORDS SUMMARY | 2025-07-14 09:18 | XMS_ITS | Referral Summary ---
Author Organization [employer] ([place], [place], [place], [place]) Address [address] [place] [address] Care Team Providers Care Machine Cementer And Folder Name Role Phone Eddi Gomez MD Primary Care Provider [phone] Allergies No known active allergies Medications No [...] Date Pranay rded Speak language other than Citizen Of [place] at home Not on file 01/01/2024 Want [...] 12/24/2024 8:58 PM EST Plan of Treatment Not on file Insurance MEDICARE PART A B Care Teams Machine Cementer And Folder Relationship Specialty Start Date End Date Eddi Gomez MD [address] [place] [address] [place] [address] PCP - General General Internal Medicine 01/17/24
--- OUTSIDE RECORDS SUMMARY | 2025-07-14 09:18 | XMS_ITS | Encounter Summary ---
Author Organization [employer] ([place], [place], [place], [place]) Address [address] [place] [address] Care Team Providers Care Assembly Stock Supervisor Name Role Phone Eddi Gomez MD Primary Care Provider [phone] Reason for Referral * MRI (Routine) - Closed Specialty Diagnoses / Procedures Referred By Contac t Referred To Contact Radiology Diagnoses Lumbar spine pain Procedures MR lumbar spine without & with IV contrast Vikram Cohen MD [address] [place] [address] Phone: tel: fax: [facility] MRI [address] [place] [address] Phone: tel: fax: Referral ID Status Reason Start Date Expiration Date Visits Re quested Visits Authorized [id number] Closed 11/21/2024 11/21/2025 1 1 Encounter Details Date Type Department Care Team (Late st Contact Info) Description 11/21/2024 Outside Orders [facility] Central Scheduling [address] [place] [address] Vikram Cohen MD [address] [place] [address] Lumbar spine pain (Primary Dx) Social History Tobacco Use Types Packs/Day Years Used Date Smoking Tobacco: Never Assessed Family and Community Support Answer Clayton e Recorded Help with Day to Day Activities Not on file 01/01/2024 Feeling Lonely or Isolated Not on file 12/31 Educational Attainment Answer Date Pranay rded Speak language other than Salvadorean at home Not on file 01/01/2024 Want [...] as of this encounter Plan of Treatment Not on file documented as of this encounter Results * MR lumbar spine without & with IV contrast (12/08/2024 4:00 PM EST) Anatomical Region Laterality Modality L-spine Magnetic Resonan ce (MRI) 12/08/2024 4:39 PM EST Impressions 12/08/2024 4:57 PM EST Postoperative and degenerative disc disease as above. Large extradural defect at L5-S1 likely representing a disc fragment resulting in severe central canal stenosis. Images reviewed, interpreted, and dictated by Dr. Kathy Eller. Transcribed by Kristina العراقي PA-C. Narrative 12/08/2024 4:57 PM EST MRI LUMBAR SPINE WITH AND WITHOUT CONTRAST HISTORY: Lumbar back pain. PROCEDURE: Pre and post gadolinium-enhanced multiplanar MR imaging of the lumbar spine was performed in multiple MR sequences. FINDINGS: The cord terminates appropriately. The disc signal is diminished throughout the lumbar spine. There is mild disc space narrowing noted at L5-S1. There is no subluxation. There is no acute fracture. L2-L3: There is facet hypertrophy and a broad-based disc bulge. There is no central canal stenosis. There is mild bilateral neural foraminal narrowing. L3-L4: There is facet hypertrophy and a broad-based disc bulge. There is mild central canal stenosis. There is severe bilateral neural foraminal narrowing. L4-L5: There is facet hypertrophy and a broad-based disc bulge. There is moderate central canal stenosis. There is severe bilateral neural foraminal narrowing. L5-S1: There is facet hypertrophy and a broad-based disc bulge. The patient is status post left hemilaminectomy. There is expected postoperative contrast enhancement. There is a large extradural defect paracentric to the left resulting in severe central canal stenosis. There is severe right and moderate left neural foraminal stenosis. Procedure Note Karl Eller MD - 12/08/2024 MRI LUMBAR SPINE WITH AND WITHOUT CONTRAST HISTORY: Lumbar back pain. PROCEDURE: Pre and post gadolinium-enhanced multiplanar MR imaging of the lumbar spine was performed in multiple MR sequences. FINDINGS: The cord terminates appropriately. The disc signal is diminished throughout the lumbar spine. There is mild disc space narrowing noted at L5-S1. There is no subluxation. There is no acute fracture. L2-L3: There is facet hypertrophy and a broad-based disc bulge. There is no central canal stenosis. There is mild bilateral neural foraminal narrowing. L3-L4: There is facet hypertrophy and a broad-based disc bulge. There is mild central canal stenosis. There is severe bilateral neural foraminal narrowing. L4-L5: There is facet hypertrophy and a broad-based disc bulge. There is moderate central canal stenosis. There is severe bilateral neural foraminal narrowing. L5-S1: There is facet hypertrophy and a broad-based disc bulge. The patient is status post left hemilaminectomy. There is expected postoperative contrast enhancement. There is a large extradural defect paracentric to the left resulting in severe central canal stenosis. There is severe right and moderate left neural foraminal stenosis. IMPRESSION: Postoperative and degenerative disc disease as above. Large extradural defect at L5-S1 likely representing a disc fragment resulting in severe central canal stenosis. Images reviewed, interpreted, and dictated by Dr. Kathy Eller. Transcribed by Kristina العراقي PA-C. us Vikram Cohen MD IM MRI ORDERABLES Fin al Result documented in this encounter Visit Diagnoses Diagnosis Lumbar spine pain- Primary Lumbar spine pain documented in this encounter Care Teams Assembly Stock Supervisor Relationship Specialty Start Date End Date Eddi Gomez MD [address] [place] [address] [place] [id number] PCP - General General Internal Medicine 01/17/24 documented as of this encounter
--- OUTSIDE RECORDS SUMMARY | 2025-07-14 09:18 | XMS_ITS | Clinical Summary ---
Author Organization [facility] Address [address] [id number] Care Team Providers Care Plaster Die Maker Name Role Phone Kim Stone MD Primary Care Provider [phone] Social History Tobacco Use Types Packs/Day Years Used Date Smoking Tobacco: Never Assessed Sex and Gender Information Value Date Recorded Sex Assigned at Not on file Legal Sex Male 8:08 PM EDT Gender Identity Not on file Sexual Orientation Not on file Plan of Treatment Health Maintenance Due Date Last Done Comments [facility]-Depression Screening 1955 [facility]-Infant/Child/Adol SDOH Screenings 1955 [facility]- SDOH Screenings 1973 [facility]-Adult SDOH Screenings 1973 [facility]-DTaP,Tdap,and Td Vaccine s (1 - Tdap) 1974 CT Colonography 2000 Colonoscopy 2000 FIT-DNA 2000 FIT 2000 FOBT 2000 Sigmoidoscopy 2000 [facility]-Colorectal Cancer Screening 2000 [facility]-Pneumococcal Vaccine: 50 + Years (1 of 1 - PCV) 2005 [facility]-Zoster Vaccines (2 of 3) 09/22/2016 07/28/2016 [id number] Vaccine (3 - season) 2025 02/09/2021, 01/12/2021 [facility]-Influenza Vaccine (#1) 06/29/202510/07, 10/29/2017, 07/28/2016 [facility]-RSV Vaccine: 60+ Years o r (1 - 1-dose 75+ series) 2030 [facility]-Hepatitis A Vaccines Aged Out 02/25/2018 No longer eligible based on patient's age to complete this topic HPV Vaccines Aged Out No longer eligi ble based on patient's age to complete this topic [facility]-HIB Vaccines Aged Out No longer e ligible based on patient's age to complete this topic [facility]-IPV Vaccines Aged Out No longer e ligible based on patient's age to complete this topic [facility]-Rotavirus Vaccines Aged Out No lo nger eligible based on patient's age to complete this topic Care Teams Plaster Die Maker Relationship Specialty Start Date End Date Kim Stone MD [address] [place] [address] [place] [address] PCP - General 03/11/21
== END 2025-07-13 23:59 ==
LOC: LAB.DROPOF 07-14 08:47
PROVIDERS: PCP Internal Medicine; Visit Provider Internal Medicine
DX: I25.10 Atherosclerotic heart disease of native coronary artery without angina pectoris (principal); Z12.5 Encounter for screening for malignant neoplasm of prostate; E11.59 Type 2 diabetes mellitus with other circulatory complications; I50.32 Chronic diastolic (congestive) heart failure; E78.5 Hyperlipidemia, unspecified
CPT/HCPCS: 80053; 80061; 83036; 85025; G0103

== ENCOUNTER 2025-07-14 16:34 | Outpatient (CLI) | payer MEDICARE, OTHER, SELFPAY ==
[2025-07-14 17:13] LABS: Microscopic, Urine URINE MICROSCOPIC (MICROSCOPIC)
[2025-07-14 17:35] LABS: Bilirubin,Urine Negative (Negative); Color,Urine YELLOW (Yellow); Glucose,Urine (UA) 3+ (Negative); Ketones,Urine TRACE (Negative); Leukocyte Esterase,Urine Negative (Negative); PH,Urine 5.0 (5.0-8.5); Protein,Urine Negative (Negative); Specific Gravity, Urine 1.020 (1.005-1.030); Urobilinogen,Urine 0.2 EU/dl (0.2)
--- OUTSIDE RECORDS SUMMARY | 2025-07-15 12:44 | XMS_ITS | Clinical Summary ---
Author Organization [facility] [place] Address [address] [place] [address] Phone Care Team Providers Care Collection Agent Name Role Phone Unavailable Primary Care Provider [...] ymorphic ventricular tachycardia (HCC),Coronary artery disease involving [place] coronary artery of [place] heart without angina pectoris Take 1 Tablet [...] Orders Only [facility] [address] [place] [address] Maykel Ríos MD Vector Remote Device from Last 3 Months Surgical History Surgery Date Site/Laterality Comments INTERNAL CARDIOVERTER DEFIBRILLATOR (ICD) IMPLANT 02/28/2023 N/A Surgeon: Maykel Ríos MD; Location: ED CARDIAC PROGRAM DIRECTOR/MUSIC DIRECTOR IMAGING; Service: Cardiac Medical devices from this [...] Office Visit [facility] [address] [place] [phone] 03/26/2026 10:30 AM EDT Office Visit [facility] [address] [place] [phone] Maria Del Rosario Corcoran, FRANKI [address] [place] [address] Health Maintenance Due Date Last [...] this topic Medical Devices Implanted Type Area Food Equipment Service Technician Device Identifier Shelf Expiration Date Model / Serial / Lot Defibrillator Pamela Posey Icd - [id number] Implanted:Qty: 1 on 02/28/2023 by Maykel Ríos MD at [facility] ICD Dual Chamber [employer] [facility]:VASC DEV [id number] 12/26/2024 [id number] / [id number] / Lead Defib Optisure Df-4 58cm Impl 8fr Sgl Coil - [id number] Implanted:Qty: 1 on 02/28/2023 by Maykel Ríos MD at [facility] Lead [facility] [employer] MED:CARDIAC RHYM MGMT [id number] 10/28/2025 [id number]/5 8 / [id number] / Lead Pcng [id number] Tendril Sts Impl Biplr Str Daniele Act Scr In - [id number] Implanted:Qty: 1 on 02/28/2023 by Maykel Ríos MD at [facility] Lead [employer] MED:CARDIAC RHYM MGMT [id number] 12/26/2025 2088TC/52 / [id number] / Procedures Procedure Name Priority Date/Time Associated Diagnosis Comments [place] INTERROGATION EVAL REMOTE </90 D 1/2/DESIGN DIRECTOR LD DFB Routine 05/28/2025 12:00 AM EDT Vector Remote Device CT CHEST HIGH RESOLUTION WO CONTRAST STAT 02/28/2023 4:31 PM EDT from Last 3 Months or Most Recently Relevant to Health Maintenance Results * VECTOR REMOTE DEVICE (05/28/2025 12:00 AM EDT) 05/28/2025 Narrative [facility] - 05/28/2025 12:00 AM EDT No significant episodes. AT/AF [place]: <1%. Mode: DDD. AP: 0.1%. PUNCH PRESS FEEDER: 0.4%. Normal device function. us Maykel Ríos MD [facility] CARDIAC CATH ORDERAB LES Final Result [facility] [address] [place] [address] * CT CHEST HIGH RESOLUTION WO CONTRAST [...] the ordering clinician. Maykel Ríos MD [facility] [place] ORDERABLES Final Result from Last 3 Months or Most Recently Relevant to Health Maintenance Insurance MEDICARE [place] PART A AND B [employer] [place] PART A AND B [employer]
--- OUTSIDE RECORDS SUMMARY | 2025-07-15 12:44 | XMS_ITS | Encounter Summary ---
Author Organization [place] [address] Care Team Providers Care Shrimp Trawler Name Role Phone Unavailable Primary Care Provider Unavailabl e Encounter Details Date Type Department Care Team (Late Contact Info) Description 05/28/2025 Orders Only [facility] [address] [facility] [address] [place] [phone] Maykel Ríos MD [address] [place] [address] Vector Remote Device Social History [...] Office Visit [facility] [address] [place] [address] 03/26/2026 10:30 AM EDT Office Visit [facility] [address] [place] [address] Maria Del Rosario Corcoran APRN [address] [place] [address] documented as of this encounter Procedures Procedure Name Priority Date/Time Associated Diagnosis Comments [place] INTERROGATION EVAL REMOTE </90 D 1/2/SALES ADMINISTRATION SPECIALIST LD DFB Routine 05/28/2025 12:00 AM EDT Vector Remote Device documented in this encounter Results * VECTOR REMOTE DEVICE (05/28/2025 12:00 AM EDT) 05/28/2025 Narrative [facility] - 05/28/2025 12:00 AM EDT No significant episodes. AT/AF [place]: <1%. Mode: DDD. AP: 0.1%. GROUND SUPPORT EQUIPMENT FITTER: 0.4%. Normal device function. us Maykel Ríos MD [facility] CARDIAC CATH ORDERAB LES Final Result [facility] [address] [place] [address] documented in this encounter Visit Diagnoses Diagnosis Vector Remote Device documented in this encounter Additional Health Concerns Assessment Noted Time A fall risk assessment has been complete d for the patient 03/26/2025 10:15 AM EDT documented as of this encounter
--- OUTSIDE RECORDS SUMMARY | 2025-07-15 12:44 | XMS_ITS | Clinical Summary ---
Author Organization Healthcare Address [address] [id number] Care Team Providers Care Installers Mechanical Name Role Phone Kim Stone MD Primary Care Provider [phone] Social History Tobacco Use Types Packs/Day Years [...] UKY-Zoster Vaccines (2 of 3) 09/22/2016 07/28/2016 [id number] Vaccine (3 - season) 2025 02/09/2021, 01/12/2021 [...] age to complete this topic Care Teams Installers Mechanical Relationship Specialty Start Date End Date Kim Stone MD [address] [place] [address] [place] [address] PCP - General 03/11/21
== END 2025-07-14 23:59 | disposition home or self-care (01) ==
LOC: LAB.DROPOF 07-15 12:42
PROVIDERS: PCP Internal Medicine; Visit Provider Internal Medicine
DX: E11.59 Type 2 diabetes mellitus with other circulatory complications (principal); R10.9 Unspecified abdominal pain
CPT/HCPCS: 81001; 82043; 82570; 87086; 87088

== ENCOUNTER 2025-07-22 07:45 | Outpatient (CLI) | payer MEDICARE, OTHER, SELFPAY ==
--- OUTSIDE RECORDS SUMMARY | 2025-07-22 07:52 | XMS_ITS | Clinical Summary ---
Author Organization [facility] [place] Address [address] [place] [address] Phone Care Team Providers Care Belt Cleaner Name Role Phone Unavailable Primary Care Provider [...] ymorphic ventricular tachycardia (HCC),Coronary artery disease involving [place] coronary artery of [place] heart without angina pectoris Take 1 Tablet [...] Orders Only [facility] [address] [place] [phone] Maykel Ríos MD Vector Remote Device from Last 3 Months Surgical History Surgery Date Site/Laterality Comments INTERNAL CARDIOVERTER DEFIBRILLATOR (ICD) IMPLANT 02/28/2023 N/A Surgeon: Maykel Ríos MD; Location: ED CARDIAC MDM DEVELOPER IMAGING; Service: Cardiac Medical devices from this [...] Office Visit [facility] [address] [place] [phone] 03/26/2026 10:30 AM EDT Office Visit [facility] [address] [place] [address] Maria Del Rosario Corcoran, FRANKI [address] [place] [address] Health Maintenance Due Date Last [...] this topic Medical Devices Implanted Type Area Disability Specialist Device Identifier Shelf Expiration Date Model / Serial / Lot Defibrillator Pamela Posey Icd - [id number] Implanted:Qty: 1 on 02/28/2023 by Maykel Ríos MD at [facility] ICD Dual Chamber [employer] [facility]:VASC DEV [id number] 12/26/2024 [id number] / [id number] / Lead Defib Optisure Df-4 58cm Impl 8fr Sgl Coil - [id number] Implanted:Qty: 1 on 02/28/2023 by Maykel Ríos MD at [facility] Lead [employer] MED:CARDIAC RHYM MGMT [id number] 10/28/2025 [id number] [id number] / [id number] / Lead Pcng [id number] Tendril Sts Impl Biplr Str Daniele Act Scr In - [id number] Implanted:Qty: 1 on 02/28/2023 by Maykel Ríos MD at [facility] Lead [employer] MED:CARDIAC RHYM MGMT [id number] 12/26/2025 2088TC/52 / [id number] / Procedures Procedure Name Priority Date/Time Associated Diagnosis Comments [place] INTERROGATION EVAL REMOTE </90 D 1/2/FLOORWORKER DISTRIBUTOR LD DFB Routine 05/28/2025 12:00 AM EDT Vector Remote Device CT CHEST HIGH RESOLUTION WO CONTRAST STAT 02/28/2023 4:31 PM EDT from Last 3 Months or Most Recently Relevant to Health Maintenance Results * VECTOR REMOTE DEVICE (05/28/2025 12:00 AM EDT) 05/28/2025 Narrative [facility] - 05/28/2025 12:00 AM EDT No significant episodes. AT/AF [place]: <1%. Mode: DDD. AP: 0.1%. RETAIL EVENT ASSISTANT: 0.4%. Normal device function. us Maykel Ríos MD [facility] CARDIAC CATH ORDERAB LES Final Result [facility] [address] [place] [address] * CT CHEST HIGH RESOLUTION WO CONTRAST [...] of the ordering clinician. Maykel Ríos MD [facility] ORDERABLES Final Result from Last 3 Months or Most Recently Relevant to Health Maintenance Insurance [place]ICARE [place] PART A AND B [employer] [place]ARE [place] PART A AND B [employer]
--- OUTSIDE RECORDS SUMMARY | 2025-07-22 07:52 | XMS_ITS | Encounter Summary ---
Author Organization [place] [address] Care Team Providers Care Lathe Mechanic Name Role Phone Unavailable Primary Care Provider Unavailabl e Encounter Details Date Type Department Care Team (Late Contact Info) Description 05/28/2025 Orders Only [facility] [address] [place] [phone] Maykel Ríos MD [address] [place] [address] Vector Remote Device Social History [...] Visit [facility] [address] [place] [address] 03/26/2026 10:30 AM EDT Office Visit [facility] [address] [place] [address] Maria Del Rosario Corcoran APRN [address] [place] [address] documented as of this encounter Procedures Procedure Name Priority Date/Time Associated Diagnosis Comments [place] INTERROGATION EVAL REMOTE </90 D 1/2/HAND I THERMAL CUTTER LD DFB Routine 05/28/2025 12:00 AM EDT Vector Remote Device documented in this encounter Results * VECTOR REMOTE DEVICE (05/28/2025 12:00 AM EDT) 05/28/2025 Narrative [facility] - 05/28/2025 12:00 AM EDT No significant episodes. AT/AF [place]: <1%. Mode: DDD. AP: 0.1%. ENGRAVER TIRE MOLD: 0.4%. Normal device function. us Maykel Ríos MD [facility] CARDIAC CATH ORDERAB LES Final Result [facility] [address] [place] [address] documented in this encounter Visit Diagnoses Diagnosis Vector Remote Device documented in this encounter Additional Health Concerns Assessment Noted Time A fall risk assessment has been complete d for the patient 03/26/2025 10:15 AM EDT documented as of this encounter
--- OUTSIDE RECORDS SUMMARY | 2025-07-22 07:52 | XMS_ITS | Referral Summary ---
Author Organization [employer] ([place], [place], [place], [place]) Address [address] [place] [address] Care Team Providers Care Medical Officer Name Role Phone Eddi Gomez MD Primary Care Provider [phone] Allergies No known active allergies Medications No [...] Date Pranay rded Speak language other than Bulgarian at home Not on file 01/01/2024 Want [...] Insurance MEDICARE PART A B Care Teams Medical Officer Relationship Specialty Start Date End Date Eddi Gomez MD [address] [place] [address] PCP - General General Internal Medicine 01/17/24
--- OUTSIDE RECORDS SUMMARY | 2025-07-22 07:52 | XMS_ITS ---
Author Organization Unknown TREATMENT PLAN [facility] Start Date Provider Encounter for Check-up [phone] [facility]
--- OUTSIDE RECORDS SUMMARY | 2025-07-22 07:52 | XMS_ITS | Encounter Summary ---
Author Organization [employer] ([place], [place], [place], [place]) Address [address] [place] [address] Care Team Providers Care Chicken Raiser Name Role Phone Eddi Gomez MD Primary Care Provider [phone] Reason for Referral * MRI (Routine) - Closed Specialty Diagnoses / Procedures Referred By Contac t Referred To Contact Radiology Diagnoses Lumbar spine pain Procedures MR lumbar spine without & with IV contrast Vikram Cohen MD [address] [place] [address] Phone: tel: fax: [facility] [address] [place] [address] Phone: tel: fax: Referral ID Status Reason Start Date Expiration Date Visits Re quested Visits Authorized [id number] Closed 11/21/2024 11/21/2025 1 1 Encounter Details Date Type Department Care Team (Late st Contact Info) Description 11/21/2024 Outside Orders [facility] Central Scheduling [address] [place] [address] Vikram Cohen MD [address] [place] [address] Lumbar spine pain (Primary Dx) Social History Tobacco Use Types Packs/Day Years Used Date Smoking Tobacco: Never Assessed Family and Community Support Answer Clayton e Recorded Help with Day to Day Activities Not on file 01/01/2024 Feeling Lonely or Isolated Not on file 12/31 Educational Attainment Answer Date Pranay rded Speak language other than Hong Konger at home Not on file 01/01/2024 Want [...] pain documented in this encounter Care Teams Chicken Raiser Relationship Specialty Start Date End Date Eddi Gomez MD [address] [place] [address] PCP - General General Internal Medicine 01/17/24 documented as of this encounter
--- OUTSIDE RECORDS SUMMARY | 2025-07-22 07:52 | XMS_ITS | Clinical Summary ---
Author Organization Healthcare Address [address] [phone] Care Team Providers Care Nursing Student Name Role Phone Kim Stone MD Primary Care Provider Social History Tobacco Use Types Packs/Day Years [...] UKY-Zoster Vaccines (2 of 3) 09/22/2016 07/28/2016 [id number] Vaccine (3 - season) 2025 02/09/2021, 01/12/2021 [...] age to complete this topic Care Teams Nursing Student Relationship Specialty Start Date End Date Kim Stone MD [address] [place] [address] PCP - General 03/11/21
--- OUTSIDE RECORDS SUMMARY | 2025-07-22 07:52 | XMS_ITS | Clinical Summary ---
Author Organization [employer] ([place], [place], [place]) Address [address] [place] [address] Care Team Providers Care Nitrate Operator Name Role Phone Eddi Gomez MD Primary Care Provider [phone] Allergies No known active allergies Medications No [...] Date Pranay rded Speak language other than Namibian at home Not on file 01/01/2024 Want [...] Insurance MEDICARE PART A B Care Teams Nitrate Operator Relationship Specialty Start Date End Date Eddi Gomez MD [address] [place] [address] PCP - General General Internal Medicine 01/17/24
--- NOTE | 2025-07-22 08:00 | US_ITS ---
FINAL REPORT TECHNIQUE: Sonographic images of the right upper quadrant were obtained. CLINICAL HISTORY: Pain in right posterior thorax area COMPARISON: None FINDINGS: PANCREAS: Unremarkable. LIVER: Fatty infiltration of the liver is present. No focal hepatic lesion. No intrahepatic biliary ductal dilatation. GALLBLADDER: Gallstones are present. No gallbladder wall thickening or pericholecystic fluid. COMMON DUCT: 3 mm. Normal for age. RIGHT KIDNEY: The right kidney measures 10.6 cm. There is no hydronephrosis, mass, or stone. FREE FLUID: None. IMPRESSION: Fatty infiltration of the liver. Gallstones are present in the gallbladder without gallbladder wall thickening or pericholecystic fluid. Reviewed, Interpreted and Dictated by Aydee Rojas MD Transcribed by Darcie Pompa Authenticated and [facility]
== END 2025-07-22 23:59 | disposition home or self-care (01) ==
PROVIDERS: PCP Internal Medicine; Visit Provider Internal Medicine
DX: K76.0 Fatty (change of) liver, not elsewhere classified (principal); K80.20 Calculus of gallbladder without cholecystitis without obstruction; R07.9 Chest pain, unspecified
CPT/HCPCS: 76705

== ENCOUNTER 2025-10-07 11:12 | Emergency (ER) | payer MEDICARE, SELFPAY ==
[2025-10-07] VITALS (7 sets, daily range): BP systolic 113–145; BP diastolic 67–84; PULSE 58–68; RESP 10–15; TEMP 36.7; O2SAT 95–98; BMI 28.5
--- NOTE | 2025-10-07 11:10 | ECG_ITS ---
APPROVED REPORT Exam: Resting ECG HR:63 bpm ECG Measurements Heart Rate 63 AXES NM 175 P 52 QRSd 101 QRS -55 QT 385 T 41 QTc 393 Conclusion SINUS RHYTHM LEFT AXIS DEVIATION [QRS AXIS < -30] INCOMPLETE RIGHT BUNDLE BRANCH BLOCK [90+ ms QRS DURATION, TERMINAL R IN V1/V2, 40+ ms S IN I/aVL/V4/V5/V6] No STEMI Electronically signed by : JANEL BURLESON, 10/09/2025 06:54:47
--- NOTE | 2025-10-07 11:26 | XR_ITS ---
FINAL REPORT CLINICAL HISTORY: L CP-at pacemaker site FINDINGS: 2 views of the chest were obtained . A pacemaker is in place. The heart is normal in size. The mediastinum is within normal limits. There is atelectasis of the right lung base. The lungs are otherwise clear. There is no pneumothorax. Osseous structures are unremarkable. IMPRESSION: Right basilar atelectasis. Reviewed, Interpreted and Dictated by Glenroy Pereyra MD Transcribed by Starr Che Authenticated and [facility]
[2025-10-07 11:31] LABS: Hematocrit 48.9 % (42.0-52.0); Hemoglobin 17.1 g/dL (14.1-18.0); Immature Granulocytes % 0.3 %; Mean Corpuscular HGB Conc 35.0 g/dL (31.8-35.4); Mean Corpuscular Hemoglobin 30.5 pg (27.0-31.2); Mean Corpuscular Volume 87.3 fl (80-94); Nucleated Red Blood Cells % 0 %; Platelet Count 197 K/mm3 (142-424); Red Blood Count 5.60 M/mm3 (4.60-6.20); Red Cell Distribution Width-SD 42.0 fL; White Blood Count 6.0 K/mm3 (4.8-10.8)
--- NOTE | 2025-10-07 11:44 | ED_ITS ---
<Statement entered by Moris Echevarria MD - 10/07/25 16:39> Moris Echevarria MD: I was consulted by the CEFERINO, and we discussed the complexity of the problems being addressed. I approved the treatment and management plan for this patient's care in the emergency department, thus performing a substantive portion of the medical decision making. Discharge Plan Disposition Patient Disposition: Home, Self-Care Prescriptions Prescriptions: No Action tamsulosin [Flomax] 0.4 mg capsule 0.4 mg PO DAILY Qty: 90 1RF finasteride [Proscar] 5 mg tablet 5 mg PO DAILY Qty: 90 1RF Entresto 24-26 mg tablet 1 tab PO BID 30 Days Qty: 60 5RF Jardiance 25 mg tablet See Rx Instructions .ROUTE .COMPLEX Qty: 90 1RF Dose Instruction: TAKE 1 TABLET BY MOUTH ONCE DAILY IN THE MORNING Rx Instructions: TAKE 1 TABLET BY MOUTH ONCE DAILY IN THE MORNING valacyclovir 500 mg tablet See Rx Instructions .ROUTE .COMPLEX Qty: 90 1RF Dose Instruction: Take 1 tablet by mouth once daily Rx Instructions: Take 1 tablet by mouth once daily Referrals Follow up/Referrals: Eddi Gomez MD [Primary Care Provider, Medical] - See instructions Activity Restrictions/Add. Instructions Additional Instructions/Restrictions: Increase fluids and rest. Take meds as directed as usual. Please follow-up with Dr. Aquino in clinic. Clinical Impressions Clinical Impression: Chest pain Instructions Patient Instructions: DI for Atypical Chest Pain Print Language Print Language: Faroese Discharge ED Provider: Moris Echevarria HPI <Belen Chris (ED), SALES [employer]OS[employer] - Last Filed: 10/07/25 13:24> General Chief Complaint: Chest Pain Stated Complaint: chest pain Time Seen by Provider: 10/07/25 11:33 Mode of Arrival: Ambulatory Source of Information: Patient Description of Symptoms (Recalled from ER Triage Doc. by RN): pt reports L sided/sternal intermittant CP that started yesterday. pt states he became light headed yesterday then the pain started. pt states the lightheadedness went away. The pain feels like minimal pressure but very tender to touch. pt states the pain is 4/10. pt denies SOA, lightheadedness, N/V, abd pain. History of Present Illness HPI narrative: 70-year-old male presents to the ED today with complaint of left-sided chest pain that started yesterday. He does become lightheaded and dizzy with this chest pain. Pain feels like pressure and tender to touch. He said it is tender around his AICD. He denies shortness of breath. He has no nausea, vomiting or abdominal pain Related Data Previous Rx's ?Medication ?Instructions ?Recorded sacubitril 24 mg-valsartan 26 mg 1 tab PO BID 30 days #60 tabs 02/20/23 tablet (Entresto) empagliflozin 25 mg tablet See Rx Instructions .Route 03/10/25 (Jardiance) .COMPLEX #90 tabs valacyclovir 500 mg tablet See Rx Instructions .Route 05/20/25 .COMPLEX #90 tabs finasteride 5 mg tablet (Proscar) 5 mg PO DAILY #90 ta bs 09/07/25 tamsulosin 0.4 mg capsule (Flomax) 0.4 mg PO DAILY #90 caps 09/07/25 Allergies Allergy/AdvReac Type Severity Reaction Status Date / Time pseudoephedrine AdvReac Severe Palpitation Verified 09/07/25 11:08 s [facility] <Belen Perez (ED), SALES CL[employer]ER - Last Filed: 10/07/25 13:24> [facility] Disclaimer: The information contained in this section may have been updated after the patient was seen, as this information can be updated by other users. Medical History Lesion of nose History of epistaxis Inflammation of nasal septum Precancerous skin lesion Nasal septum ulceration HLD (hyperlipidemia) DDD (degenerative disc disease) Sciatica Heart failure COPD exacerbation HFrEF (heart failure with reduced ejection fraction) Left-sided low back pain with sciatica Lumbar nerve root impingement Lumbar spinal stenosis Degenerative disc disease, lumbar Bleeding nose Dyspnea Abnormal computerized axial tomography of chest Diastolic dysfunction Coronary artery disease Class 1 obesity Ventricular tachycardia Allergic rhinitis Encounter for screening for malignant neoplasm of lung in current smoker with 30 pack year history or greater COPD (chronic obstructive pulmonary disease) Pulmonary emphysema Stopped smoking with greater than 30 pack year history Dyspnea on exertion Lung nodule Hx of acute arthritis Hx of gastroesophageal reflux (GERD) Supraventricular tachycardia Surgical History Previous back surgery History of permanent cardiac pacemaker placement History of cardiac defibrillator placement History of heart artery stent History of colonoscopy Family History Other Cancer Social History Smoking Status: Former smoker tobacco type: cigarettes smoking status stop date: stopped 15 years ago second hand exposure: No alcohol intake: current substance use type: denies use current occupational status: other Travel in the last 8 weeks?: None adopted: No caregiver/support person: Yes (Doreen Powell) foster care: No household members: spouse housing: house lives independently: Yes marital status: number of children: 6 number of grandchildren: 14 education level: high school service: No skilled nursing: No current occupation: [employer] current occupational exposures/hazards: Yes caffeine: Yes physical activity: none frequency: 1-2 times per week duration: 15-30 minutes/day duane/jainism: Temple do you feel safe at home: Yes victim of physical abuse: No victim of emotional abuse: No victim of sexual abuse: No would you like helpful sources: No Have you lived/traveled outside [place] in past 30 days?: No Contact w/someone who lives/traveled outside [place] past 30 days?: No Exposure to someone with infectious disease in past 14 days?: No Do you have a fever (greater than 100.4 F or 38 C)?: No Have you tested positive for COVID-19?: No Exposed to someone with COVID-19 in past 14 days?: No Do you have a sore throat?: No Do you have a cough?: No Do you have any weakness?: No Do you have any diarrhea?: No Are you experiencing any unusual bleeding?: No Do you have any muscle aches/pain?: No Do you have any abdominal pain?: No Are you experiencing loss of taste or smell?: No Other Medical History Have you received the Flu Vaccine for this season: No Have you received the Pneumonia Vaccine: Yes <Belen Perez (ED), SALES [employer] - Last Filed: 10/07/25 13:24> ROS Obtained: Yes Systems reviewed as appropriate & no additional complaints except as documented Constitutional Constitutional: Reports as per HPI Physical Exam <Belen Perez (ED), SALES [employer] - Last Filed: 10/07/25 13:24> General General appearance: alert and in no apparent distress Head Head exam: normocephalic Eye Eye exam: Present PERRL ENT ENT exam: Present mucous membranes moist Neck Neck exam: Present trachea midline Chest Chest inspection: Present symmetric chest wall rise Respiratory Respiratory exam: Present normal lung sounds bilaterally Cardiovascular Cardiovascular exam: Present regular rate, normal rhythm, normal heart sounds, +S1 and +S2 Abdominal Exam Abdominal exam: Present soft and normal bowel sounds Extremities Exam Extremities exam: Present normal inspection, full ROM and normal capillary refill Neurological Exam Neurological exam: Present alert, oriented X3 and normal gait Psychiatric Psychiatric exam: Present normal mood Skin Skin exam: Present warm and dry HEART Score <[facility] SALES CLOSER - Last Filed: 10/07/25 13:24> HEART Score HEART Score assessment performed?: Yes History (anamnesis): Slightly suspicious ECG: Normal Age: >65 years Risk factors: 3 or more risk factors Troponin: </= normal limit HEART Score: 4 Critical Care <[facility] (ED), SALES CLOSER - Last Filed: 10/07/25 13:24> Critical Care Time Critical Care Time: No Medical Decision Making <[facility] (ED), SALES [employer]ER - Last Filed: 10/07/25 13:24> Aayush Inquiry Pt receiving controlled substance: No Aayush was queried for this patient: No Vital Signs Vital Signs: 10/07/25 11:13 10/07/25 11:26 10/07/25 11:26 Temperature 98.1 F Temperature Source Oral Pulse Rate 67 Pulse Rate [Left] 68 Respiratory Rate 11 L Blood Pressure Blood Pressure [Right Arm] 145/82 H Blood Pressure Mean [Right Arm] 103 Blood Pressure Source [Right Arm] Automatic Cuff Blood Pressure Position [Right Arm] Sitting 02 Sat by Pulse Oximetry 98 96 Oxygen Delivery Method Room Air Room Air 10/07/25 11:30 10/07/25 12:01 10/07/25 12:30 Temperature Temperature Source Pulse Rate 58 L 64 62 Pulse Rate [Left] Respiratory Rate 15 10 L 14 Blood Pressure 113/78 123/80 138/67 Blood Pressure [Right Arm] Blood Pressure Mean [Right Arm] Blood Pressure Source [Right Arm] Blood Pressure Position [Right Arm] 02 Sat by Pulse Oximetry 95 95 98 Oxygen Delivery Method Room Air Room Air Room Air 10/07/25 13:00 Temperature Temperature Source Pulse Rate Pulse Rate [Left] Respiratory Rate 15 Blood Pressure 127/84 Blood Pressure [Right Arm] Blood Pressure Mean [Right Arm] Blood Pressure Source [Right Arm] Blood Pressure Position [Right Arm] 02 Sat by Pulse Oximetry Oxygen Delivery Method Lab Data Labs: Lab Results 10/07/25 11:22: WBC 6.0, RBC 5.60, Hgb 17.1, Hct 48.9, MCV 87.3, MCH 30.5, MCHC 35.0, RDW 13.1, Plt Count 197, MPV 9.8, Neut % (Auto) 56.7, Lymph % (Auto) 27.9, Walker % (Auto) 10.5 H, Eos % (Auto) 3.8, Baso % (Auto) 0.8, Neut # (Auto) 3.4, Lymph # (Auto) 1.7, Walker # (Auto) 0.6, Eos # (Auto) 0.2, Baso # (Auto) 0.1, Sodium 139, Potassium 3.8, Chloride 104, Carbon Dioxide 25, Anion Gap 13.8, BUN 9, Creatinine 0.90, Estimated Creat Clear 93, Estimated GFR 83, Est GFR ( Amer) 101, Glucose 194 H, Calcium 9.7, Magnesium 2.0, Total Bilirubin 1.1, AST 48, ALT 62, Alkaline Phosphatase 100, Troponin I < 0.01, Total Protein 8.4 H, Albumin 4.9, Globulin 3.5 H, Albumin/Globulin Ratio 1.4, Lipase 149, HIV Ag/Ab Combo Qual Negative 10/07/25 11:56: SARS-CoV-2 (PCR) Not detected, Influenza A Untype (PCR) Not detected, Influenza Type B (PCR) Not detected 10/07/25 11:22 10/07/25 11:22 Response Orders (Tests/Meds): ED MEDICATIONS Discontinued Medications Generic Name Dose Route Start Last Admin Trade Name Elkin PRN Reason Stop Dose Admin Aspirin 324 mg 10/07/25 11:26 10/07/25 11:45 Aspirin 81mg Chewable Tablet PO 10/07/25 11:27 324 mg ONCE ONE Administration Morphine Sulfate 4 mg 10/07/25 11:55 10/07/25 12:12 Morphine 4mg/Ml Syringe IV 10/07/25 11:56 Not Given ONCE ONE Ondansetron HCl 4 mg 10/07/25 11:55 10/07/25 12:12 Ondansetron 4mg/2ml Vial IV 10/07/25 11:56 Not Given ONCE ONE ORDERS Category Date Time Status XR chest 2V Stat Exams 10/07/25 11:26 Taken Complete Blood Count Auto Diff Stat Lab 10/07/25 11:22 Completed Comprehensive Metabolic Panel Stat Lab 10/07/25 11:22 Completed HIV Combo Stat Lab 10/07/25 11:22 Completed Hepatitis C Ab Qual. W/ RFX Stat Lab 10/07/25 11:22 Received Lipase Stat Lab 10/07/25 11:22 Completed Magnesium Stat Lab 10/07/25 11:22 Completed Rapid PCR Covid and Flu A/B Stat Lab 10/07/25 11:56 Completed Troponin I Q3H Lab 10/07/25 14:30 Ordered Troponin I Q3H Lab 10/07/25 17:30 Ordered Troponin I Stat Lab 10/07/25 11:22 Completed MDM Narrative Medical Decision Narrative: patient is a 70-year-old male presenting to the emergency department for evaluation of chest pain that started last night with lightheadedness. Patient is hemodynamically stable and nontoxic-appearing upon arrival, afebrile. Differential diagnosis includes ACS CAD, CT, dissection, among others. Workup will be conducted with hematologic labs, specific imaging, provocative tests. Initial inventions include crystalloid bolus, analgesics. Initial workup reviewed by me hematologic labs are remarkable for white blood cell count 6, electrolytes were all normal troponin was negative. Dr. Echevarria read the chest x-ray is nothing acute. EKG was also reviewed there is no acute ischemia. I did talk to Dr. Aquino about patient's situation and he said he can follow-up in clinic. Patient is safe for discharge home <Moris Echevarria MD - Last Filed: 10/07/25 12:07> Vital Signs Vital Signs: 10/07/25 11:13 10/07/25 11:26 10/07/25 11:26 Temperature 98.1 F Temperature Source Oral Pulse Rate 67 Pulse Rate [Left] 68 Respiratory Rate 11 L Blood Pressure Blood Pressure [Right Arm] 145/82 H Blood Pressure Mean [Right Arm] 103 Blood Pressure Source [Right Arm] Automatic Cuff Blood Pressure Position [Right Arm] Sitting 02 Sat by Pulse Oximetry 98 96 Oxygen Delivery Method Room Air Room Air 10/07/25 11:30 10/07/25 12:01 10/07/25 12:30 Temperature Temperature Source Pulse Rate 58 L 64 62 Pulse Rate [Left] Respiratory Rate 15 10 L 14 Blood Pressure 113/78 123/80 138/67 Blood Pressure [Right Arm] Blood Pressure Mean [Right Arm] Blood Pressure Source [Right Arm] Blood Pressure Position [Right Arm] 02 Sat by Pulse Oximetry 95 95 98 Oxygen Delivery Method Room Air Room Air Room Air 10/07/25 13:00 Temperature Temperature Source Pulse Rate Pulse Rate [Left] Respiratory Rate 15 Blood Pressure 127/84 Blood Pressure [Right Arm] Blood Pressure Mean [Right Arm] Blood Pressure Source [Right Arm] Blood Pressure Position [Right Arm] 02 Sat by Pulse Oximetry Oxygen Delivery Method Lab Data Labs: Lab Results 10/07/25 11:22: WBC 6.0, RBC 5.60, Hgb 17.1, Hct 48.9, MCV 87.3, MCH 30.5, MCHC 35.0, RDW 13.1, Plt Count 197, MPV 9.8, Neut % (Auto) 56.7, Lymph % (Auto) 27.9, Walker % (Auto) 10.5 H, Eos % (Auto) 3.8, Baso % (Auto) 0.8, Neut # (Auto) 3.4, Lymph # (Auto) 1.7, Walker # (Auto) 0.6, Eos # (Auto) 0.2, Baso # (Auto) 0.1, Sodium 139, Potassium 3.8, Chloride 104, Carbon Dioxide 25, Anion Gap 13.8, BUN 9, Creatinine 0.90, Estimated Creat Clear 93, Estimated GFR 83, Est GFR ( Amer) 101, Glucose 194 H, Calcium 9.7, Magnesium 2.0, Total Bilirubin 1.1, AST 48, ALT 62, Alkaline Phosphatase 100, Troponin I < 0.01, Total Protein 8.4 H, Albumin 4.9, Globulin 3.5 H, Albumin/Globulin Ratio 1.4, Lipase 149, HIV Ag/Ab Combo Qual Negative 10/07/25 11:56: SARS-CoV-2 (PCR) Not detected, Influenza A Untype (PCR) Not detected, Influenza Type B (PCR) Not detected Response Orders (Tests/Meds): ED MEDICATIONS Discontinued Medications Generic Name Dose Route Start Last Admin Trade Name Elkin PRN Reason Stop Dose Admin Aspirin 324 mg 10/07/25 11:26 10/07/25 11:45 Aspirin 81mg Chewable Tablet PO 10/07/25 11:27 324 mg ONCE ONE Administration Morphine Sulfate 4 mg 10/07/25 11:55 10/07/25 12:12 Morphine 4mg/Ml Syringe IV 10/07/25 11:56 Not Given ONCE ONE Ondansetron HCl 4 mg 10/07/25 11:55 10/07/25 12:12 Ondansetron 4mg/2ml Vial IV 10/07/25 11:56 Not Given ONCE ONE ORDERS Category Date Time Status XR chest 2V Stat Exams 10/07/25 11:26 Taken Complete Blood Count Auto Diff Stat Lab 10/07/25 11:22 Completed Comprehensive Metabolic Panel Stat Lab 10/07/25 11:22 Completed HIV Combo Stat Lab 10/07/25 11:22 Completed Hepatitis C Ab Qual. W/ RFX Stat Lab 10/07/25 11:22 Received Lipase Stat Lab 10/07/25 11:22 Completed Magnesium Stat Lab 10/07/25 11:22 Completed Rapid PCR Covid and Flu A/B Stat Lab 10/07/25 11:56 Completed Troponin I Q3H Lab 10/07/25 14:30 Ordered Troponin I Q3H Lab 10/07/25 17:30 Ordered Troponin I Stat Lab 10/07/25 11:22 Completed ECG Data Tracing #1: ECG Narrative: Independently interpreted by me rate 63, rhythm is regular, axis is leftward deviated, no ST elevation in anatomical contiguous leads, QTc 393.
[2025-10-07] MEDS: ASPIRIN 81MG CHEWABLE TABLET 324 MG PO (11:45)
[2025-10-07 11:55] LABS: Alanine Aminotransferase 62 U/L (12-78); Albumin Level 4.9 g/dl (3.5-5.0); Albumin/Globulin Ratio 1.4 (1.1-1.8); Alkaline Phosphatase 100 U/L (38-126); Anion Gap 13.8 mEq/L (5-15); Aspartate Amino Transferase 48 U/L (17-59); Bilirubin,Total 1.1 mg/dl (0.2-1.3); Blood Urea Nitrogen 9 mg/dl (9-20); Calcium 9.7 mg/dl (8.4-10.2); Carbon Dioxide 25 mmol/L (22.0-30.0); Chloride 104 mmol/L (98-107); Creatinine Clearance Estimated 93 mL/min (50-200); Creatinine,Serum 0.90 mg/dl (0.66-1.25); Estimated Glomerular Filt Rate 83 ml/min (>60); GFR (African American) 101 ML/MIN (>60); Globulin 3.5 g/dL (1.3-3.2); Glucose 194 mg/dl (74-100); Potassium 3.8 mmoL/L (3.5-5.1); Sodium 139 mmol/L (136-145); Total Protein,Serum 8.4 g/dl (6.3-8.2)
[2025-10-07 12:00] LABS: Coronavirus 19, PCR Not Detected (NotDetected); Influenza A, PCR Not Detected (NotDetected); Influenza B, PCR Not Detected (NotDetected)
[2025-10-07 12:11] LABS: Lipase 149 U/L (23-300); Magnesium 2.0 mg/dl (1.6-2.3); Troponin I < 0.01 ng/ml (0.00-0.034)
[2025-10-07 13:00] LABS: Hepatitis C Ab Qual. W/ RFX NEGATIVE (Negative)
== END 2025-10-07 13:39 | disposition home or self-care (01) ==
PROVIDERS: Nurse Practitioner; Emergency Provider Emergency Medicine; PCP Internal Medicine
DX: R07.9 Chest pain, unspecified (principal); R42 Dizziness and giddiness; Z95.810 Presence of automatic (implantable) cardiac defibrillator; Z86.79 Personal history of other diseases of the circulatory system
CPT/HCPCS: 71046; 80053; 83690; 83735; 84484; 85025; 86803; 87389; 87636; 93005; 99285